=== PATIENT | male | born 1940 | race Caucasian/White ===

== ENCOUNTER 2018-07-06 11:46 | Emergency (ER) | payer MEDICARE, OTHER, SELFPAY ==
[2018-07-06 11:50] VITALS: BP 147/86; PULSE 66; RESP 20; TEMP 36.3; O2SAT 98; BMI 22.9
--- NOTE | 2018-07-06 11:55 | DI.CT.S_ITS ---
PROCEDURE: CT HEAD/BRAIN WO CON INDICATIONS: aphasia- resolved TECHNIQUE: Noncontrast 4.5 mm thick angled axial sections acquired from the foramen magnum to the vertex, with coronal and sagittal reformats. For radiation dose reduction, the following was used: automated exposure control, adjustment of mA and/or kV according to patient size. COMPARISON: [facility], CT, HEAD WITHOUT CONTRAST, 09/13/2014, 11:15. FINDINGS: Image quality: Excellent. CSF spaces: Basal cisterns are patent. No extra-axial fluid collections. The ventricles are symmetric in size and shape. There is mild cerebral volume loss, with resultant ventricular and sulcal prominence. Brain: No intracranial hemorrhage, mass, or mass effect. There are subcortical, periventricular and deep white matter hypodensities consistent with mild chronic small vessel ischemic changes. There is intracranial internal carotid artery atherosclerosis. Skull and face: Calvarium and visualized facial bones appear intact, without suspicious lesions. Sinuses: Visualized sinuses and mastoids are clear. IMPRESSION: 1. No acute intracranial abnormality. 2. Mild chronic white matter small vessel ischemic changes and cerebral volume loss. Dictated by: Truong Martínez M.D. on 07/06/2018 at 12:33 Approved by: Truong Martínez M.D. on 07/06/2018 at 12:35
[2018-07-06 13:22] VITALS: BP 115/70; PULSE 63; RESP 16; O2SAT 93
[2018-07-06 14:00] VITALS: BP 138/73; PULSE 64; RESP 16; O2SAT 100
[2018-07-06 14:30] VITALS: BP 121/72
--- NOTE | 2018-07-07 14:28 | ED.NEUROSD ---
HPI - Neuro Symptoms/Deficit General Chief Complaint: Neuro Symptoms/Deficit Stated Complaint: RECENT TIA,COULD NOT COME UP WITH WORDS Time Seen by Provider: 07/06/18 12:06 Source: patient and family Mode of arrival: ambulatory Limitations: no limitations History of Present Illness HPI Narrative: Patient states that he had word-finding difficulty today, after going to the gym. Patient states he is at the gym a couple of hours ago and was fine, but when he came home and tried to tell his what he did at the gym, he could not come up with the right words. Patient states he knew what he wanted to say, for example, tell her he would use the rowing machine, but he could not find the words and make them come out. He states he did not have any other neurologic deficits. He did at have any weakness, numbness, difficulty swallowing, or visual changes. He states that the symptoms lasted for about 15 min, then resolved spontaneously. Patient's states this has happened once before. Patient was followed up and placed on aspirin, and also cover he had a carotid Doppler and echocardiogram within the last couple of months, both of which looked good. 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 The patient states he is completely back to normal now and has no other complaints. His last episode of this was about 2 months ago. Patient is generally quite healthy, and works out regularly. He states that other than this, he has not felt bad in any way recently. On Anticoagulants: Yes (asa) Related Data Home Medications Medication Instructions Recorded Confirmed CA PANTOTHENATE/FOLIC ACID/VIT #0 06/22/12 02/11/18 (MULTIVITAMIN) CHOLECALCIFEROL (VITAMIN D3) #0 06/22/12 02/11/18 (Vitamin D3) aspirin 81 mg PO 0800 #0 06/22/12 02/11/18 clopidogrel [Plavix] 75 mg PO QDAY #0 06/22/12 02/11/18 metoprolol tartrate 12.5 mg PO Q DAY #0 06/22/12 02/11/18 rosuvastatin [Crestor] 20 mg PO QDAY #0 06/22/12 02/11/18 Allergies Allergy/AdvReac Type Severity Reaction Status Date / Time No Known Drug Allergies Allergy Verified 02/11/18 09:02 Review of Systems Review of Systems All systems reviewed & are unremarkable except as noted in HPI and below Constitutional Denies chills, Denies fever(s), Denies lethargy and Denies weakness Eyes Denies change in vision, Denies eye discharge, Denies irritation and Denies loss of vision ENT Ears, Nose, Mouth, and Throat: Denies change in voice, Denies neck pain and Denies sore throat Cardiovascular Denies chest pain, Denies irregular heart rhythm, Denies lightheadedness, Denies palpitations, Denies dyspnea, Denies dyspnea on exertion and Denies orthopnea Respiratory Denies cough, Denies dyspnea, Denies dyspnea on exertion and Denies wheezing Gastrointestinal Gastrointestinal: Denies abdominal pain, Denies change in bowel habits, Denies diarrhea, Denies nausea and Denies vomiting Genitourinary Denies hematuria, Denies flank pain, Denies urinary incontinence and Denies urinary urgency Musculoskeletal Denies neck pain Integumentary/Breasts Denies pruritus, Denies erythema, Denies rash and Denies wounds Neurologic Denies confusion, Denies loss of vision and Denies weakness Comments: Speech difficulty Psychiatric Denies anxiety, Denies confusion, Denies depression, Denies homicidal ideation and Denies suicidal ideation Endocrine Denies palpitations Hematologic/Lymphatic Denies easy bruising Allergic/Immunologic Denies wheezing PFSH Medical History TIA (transient ischemic attack) (Acute) Surgical History No pertinent past surgical history (Acute) Social History Smoking Status: Never smoker Exam Initial Vital Signs Initial Vital Signs: Vital Signs Temperature 97.4 F L 07/06/18 11:50 Pulse Rate 66 07/06/18 11:50 Respiratory Rate 20 07/06/18 11:50 Blood Pressure 147/86 H 07/06/18 11:50 Pulse Oximetry 98 07/06/18 11:50 Const General: cooperative and well developed Nutritional Appearance: well nourished Orientation: alert, awake, oriented x3 and not confused [facility] Head: normocephalic and atraumatic Ears: external ears normal Nose: external nose normal and No nasal discharge Face and sinus: face symmetric and No dry mucous membranes Mouth: oral mucosae normal and moist mucous membranes Teeth and gingiva: dentition normal Eyes General: appearance normal, both eyes and all related structures Eyelids: eyelids normal Conjunctivae: conjunctivae normal Sclera: sclerae normal Pupils: PERRL EOM: EOM intact bilaterally Neck Neck: normal visual inspection, trachea midline, No lymphadenopathy, No midline deformity and No JVD Lymphatic: No lymphedema Chest Chest: normal inspection of the chest Resp Effort & Inspection: normal respiratory effort, able to speak in complete sentences, no respiratory distress and no use of accessory muscles Auscultation: clear to auscultation bilaterally, no rales, no rhonchi and no wheezes Cardio Rate: regular rate Rhythm: regular rhythm Heart Sounds: no click, no gallops, no murmurs and no rubs Pulses: normal peripheral pulses GI Inspection: non-distended Palpation: soft, no hepatosplenomegaly, No guarding, No pulsatile mass and No tender Auscultation: normal bowel sounds Back/Spine/Pelvis Back: No CVA tenderness Cervical Spine: cervical ROM normal and No pain with cervical ROM Thoracic/Lumbar Spine: thoracic and lumbar spine normal to inspection Skin General: no rashes or lesions noted, No jaundice and No petechiae Neuro General: alert, oriented x3, gait normal and no focal motor deficits Cranial Nerves: CN's II-XI intact bilaterally and PERRL Speech: speech normal Gait: normal gait Motor: muscle tone normal throughout, strength 5/5 throughout and no movement abnormalities noted Sensory Exam: no sensory deficits noted Extrem General: full ROM, no clubbing, cyanosis or edema, no pedal edema and no calf tenderness Psych Appearance: well kempt Mental Status: mental status grossly normal Attitude: cooperative Thought Content: normal and suicidality Judgment: judgment good Course Course Narrative: I discussed with the patient and his that the symptoms do sound like a TIA. Patient has had a head CT today, and this is negative. The patient is on prophylactic aspirin already, and he has already had the echocardiogram and carotid Doppler very recently, that we would order, were he to stay in the hospital. At this point in time, given the lack of residual neuro deficits, and the fact that the workup and prevention is already in place, I do not feel the patient needs to be admitted to the hospital. However, I have discussed with the patient and his that it is probably a good idea to follow up with Neurology just to touch base about these episodes he is having. Patient and his state they would like to follow-up. They are both comfortable with the plan. MDM - Neuro Symptoms/Deficit Medical Records Attestation: I reviewed the patient's medical records. Imaging Data CT scan - head: Attestation: I personally reviewed and interpreted this imaging study as follows: My impression: Negative for acute pathology. Radiologist's impression: PROCEDURE: CT HEAD/BRAIN WO CON INDICATIONS: aphasia- resolved TECHNIQUE: Noncontrast 4.5 mm thick angled axial sections acquired from the foramen magnum to the vertex, with coronal and sagittal reformats. For radiation dose reduction, the following was used: automated exposure control, adjustment of mA and/or kV according to patient size. COMPARISON: [facility], CT, HEAD WITHOUT CONTRAST, 09/13/2014, 11:15. FINDINGS: Image quality: Excellent. CSF spaces: Basal cisterns are patent. No extra-axial fluid collections. The ventricles are symmetric in size and shape. There is mild cerebral volume loss, with resultant ventricular and sulcal prominence. Brain: No intracranial hemorrhage, mass, or mass effect. There are subcortical, periventricular and deep white matter hypodensities consistent with mild chronic small vessel ischemic changes. There is intracranial internal carotid artery atherosclerosis. Skull and face: Calvarium and visualized facial bones appear intact, without suspicious lesions. Sinuses: Visualized sinuses and mastoids are clear. IMPRESSION: 1. No acute intracranial abnormality. 2. Mild chronic white matter small vessel ischemic changes and cerebral volume loss. Dictated by: Truong Martínez M.D. on 07/06/2018 at 12:33 Approved by: Truong Martínez M.D. on 07/06/2018 at 12:35 Discharge Plan Departure Patient Disposition: Home Clinical Impression: Transient cerebral ischemia Discharge Date/Time: 07/06/18 15:21 Interventions: ED Discharge Assessment Last Done: 07/06/18 15:19 Instructions: DI for Transient Ischemic Attack Prescriptions: No Action rosuvastatin [Crestor] 10 MG tablet 20 mg PO QDAY Qty: 0 RF: 0 metoprolol tartrate 25 MG tablet 12.5 mg PO Q DAY Qty: 0 RF: 0 clopidogrel [Plavix] 75 MG tablet 75 mg PO QDAY Qty: 0 RF: 0 aspirin 81 MG tablet,chewable 81 mg PO 0800 Qty: 0 RF: 0 CA PANTOTHENATE/FOLIC ACID/VIT (MULTIVITAMIN) Qty: 0 RF: 0 CHOLECALCIFEROL (VITAMIN D3) (Vitamin D3) Qty: 0 RF: 0 Referrals: [facility] [Provider Group] Sundar Wilde MD [Primary Care Provider] - Octavio Leone MD [Non-Staff] -
== END 2018-07-06 15:21 | disposition home or self-care (01) ==
PROVIDERS: Emergency Provider Emergency Medicine; PCP Family Medicine
DX: G45.9 Transient cerebral ischemic attack, unspecified (principal); R47.81 Slurred speech; R20.0 Anesthesia of skin; R13.10 Dysphagia, unspecified; Z79.01 Long term (current) use of anticoagulants
CPT/HCPCS: 70450; 99283; 99291

== ENCOUNTER 2020-05-10 17:34 | Observation (INO) | payer MEDICARE, OTHER, SELFPAY ==
[2020-05-10] VITALS (12 sets, daily range): BP systolic 121–180; BP diastolic 67–83; PULSE 59–68; RESP 16–23; TEMP 36.7–36.8; O2SAT 94–100; BMI 22.9; BMI 22.5
--- NOTE | 2020-05-10 17:49 | PC.NURSE ---
Neurologist Dr Gunner Corey in [place]
--- NOTE | 2020-05-10 17:50 | DI.CT.S_ITS ---
PROCEDURE: CT HEAD/BRAIN WO CON INDICATIONS: TIA TECHNIQUE: Noncontrast 4.5 mm thick angled axial sections acquired from the foramen magnum to the vertex, with coronal and sagittal reformats. For radiation dose reduction, the following was used: automated exposure control, adjustment of mA and/or kV according to patient size. COMPARISON: [facility], CT, CT HEAD/BRAIN WO CON, 07/06/2018, 11:51. FINDINGS: Image quality: Excellent. CSF spaces: Basal cisterns are patent. No extra-axial fluid collections. The ventricles are symmetric in size and shape. Brain: No intracranial bleeds or masses. There is cerebral volume loss for age, with resultant ventricular and sulcal prominence. There are periventricular and deep white matter chronic small vessel ischemic changes. There is intracranial internal carotid artery atherosclerosis. Skull and face: Calvarium and visualized facial bones appear intact, without suspicious lesions. Sinuses: Visualized sinuses and mastoids are clear. IMPRESSION: 1. No acute intracranial process. 2. Mild atrophy and chronic microvascular ischemic changes. Dictated by: Christine Molina M.D. on 05/10/2020 at 18:09 Approved by: Christine Molina M.D. on 05/10/2020 at 18:10
[2020-05-10 18:11] LABS: Add Manual Diff / Slide Review NO; Basophils Absolute Auto 0 /uL (0-100); Basophils Percent Auto 0.5 % (0-2); Eosinophils Absolute Auto 100 /uL (0-450); Eosinophils Percent Auto 2.1 % (2-4); Hemoglobin 14.1 g/dL (13.5-17.5); Lymphocytes Absolute Auto 1500 /uL (1100-4500); Lymphocytes Percent Auto 45.3 % (25-40); Mean Corpuscular HGB Conc 34.4 % (30-36); Mean Corpuscular Hemoglobin 33.9 PG (26-34); Mean Corpuscular Volume 98.4 fL (80-100); Monocytes Absolute Auto 300 /uL (0-900); Neutrophils Absolute Auto 1400 /uL (1500-7000); Neutrophils Percent Auto 44.1 % (50-75); Platelet Count 181 X10^3/uL (150-400); Red Blood Cell Count 4.16 X10^6/uL (4.5-5.9); Red Cell Distribution Width 13.2 % (11.6-14.8); White Blood Cell Count 3.2 X10^3/uL (4.5-11.0)
[2020-05-10 18:13] LABS: INR 0.9 (0.9-1.3); Prothrombin Time 10.7 SECONDS (10.1-12.7)
[2020-05-10 18:16] LABS: PTT Partial Thromboplastin Tim 29 SECONDS (26.4-36.2)
[2020-05-10 18:19] LABS: Creatine Kinase 172 U/L (55-170); Ethanol (ETOH) < 10 mg/dL
[2020-05-10 18:20] LABS: BUN Creatinine Ratio 22.3 (6-22); Blood Urea Nitrogen 23 mg/dL (9-20); Calcium 9.7 mg/dL (8.4-10.2); Carbon Dioxide 29 mmol/L (22-32); Chloride 104 mmol/L (98-107); Estimated Glomerular Filt Rate > 60.0 mL/min (>60); Glucose 97 mg/dL (80-110); HEMOLYSIS < 15 (0-50); Potassium 4.3 mmol/L (3.4-5.1); Sodium 139 mmol/L (137-145)
[2020-05-10 18:31] LABS: Troponin I < 0.012 ng/mL (0.01-0.034)
[2020-05-10 18:34] LABS: CKMB % Relative Index 1.5 % (1.5-5.0); Creatine Kinase MB 2.52 ng/mL (<2.37)
--- NOTE | 2020-05-10 19:54 | ED_ITS ---
HPI - Neuro Symptoms/Deficit General Chief Complaint: Neuro Symptoms/Deficit Stated Complaint: THINKS HAVING A TIA Time Seen by Provider: 05/10/20 17:51 History of Present Illness HPI Narrative: 79-year-old gentleman with a history of CABG , prior TIAs and hyperlipidemia presents with word-finding difficulties and mild word slurring 1st appreciated at 5:10 this evening and completely resolved by time of exam in the emergency department. He has seen both Cardiology and Neurology with full workup with prior TIAs including echocardiogram and MRIs. After underwriting consultant with Neurology his aspirin was discontinued and he was started on Plavix. He is compliant with all of his medications at this time. On Anticoagulants: Yes Related Data Home Medications Medication Instructions Recorded Confirmed CA PANTOTHENATE/FOLIC ACID/VIT #0 06/22/12 02/11/18 (MULTIVITAMIN) CHOLECALCIFEROL (VITAMIN D3) #0 06/22/12 02/11/18 (Vitamin D3) clopidogrel [Plavix] 75 mg PO QDAY #0 06/22/12 05/10/20 metoprolol tartrate 12.5 mg PO Q DAY #0 06/22/12 02/11/18 rosuvastatin [Crestor] 20 mg PO QDAY #0 06/22/12 05/10/20 atenolol 12.5 mg PO 05/10/20 atenolol 12.5 mg PO DAILY 05/10/20 05/10/20 losartan 12.5 mg PO DAILY 05/10/20 05/10/20 Allergies Allergy/AdvReac Type Severity Reaction Status Date / Time No Known Drug Allergies Allergy Verified 02/11/18 09:02 Review of Systems Review of Systems Narrative: Pertinent positive and negative findings as per HPI Remainder of review of systems is otherwise unremarkable for Constitutional: Fevers, chills, weakness ENT: No sore throat, neck pain, ear pain CV: Chest pain, palpitations, dyspnea on exertion Respiratory: Cough, wheeze, dyspnea GI: Nausea, vomiting, diarrhea, change in bowel habits, black or bloody stools : Dysuria, hematuria, flank pain MS: Muscle weakness, numbness, joint swelling or warmth Skin: Rashes, nonhealing lesions Neuro: Syncope, dizziness, tingling Patient History Medical History (Updated 05/10/20 @ 20:00 by Freya Robins MD) Hyperlipidemia (Acute) Hypertension (Acute) TIA (transient ischemic attack) (Acute) Surgical History (Updated 05/10/20 @ 20:00 by Freya Robins MD) Hx of CABG (Acute) No pertinent past surgical history (Acute) Social History Smoking Status: Never smoker Smoking Status: Never smoker alcohol intake frequency: a few times a week Substance Use Type: does not use Exam Narrative Exam Narrative: General: Healthy appearing, in no acute distress. Able to give a complete and coherent history. Well-nourished well-developed HEENT: Moist mucous membranes, normal sclera with reactive pupils, Neck: No JVD, supple Respiratory: Lungs are clear to auscultation, no wheezing no rales no rhonchi. Full and symmetrical air movement Cardiac: Regular rate and rhythm no murmurs no bruits Abdomen: Soft nontender good bowel tones, no flank pain Skin: Warm and dry, no rashes Neurologic: Grossly neurologically intact with no obvious asymmetries or abnormalities. NIH = 0 Extremities: No trauma, well perfused Psych: Cooperative, appropriate insight and affect Initial Vital Signs Initial Vital Signs: Vital Signs Temperature 98.1 F 05/10/20 17:37 Pulse Rate 64 05/10/20 17:37 Respiratory Rate 16 05/10/20 17:37 Blood Pressure 180/83 H 05/10/20 17:37 Pulse Oximetry 98 05/10/20 17:37 Scores NIH Stroke Scale Level of Conciousness: Alert, keenly responsive Ask month/age: Answers both questions correctly. Open/close eyes, close hand: Performs both tasks correctly Best gaze horizontal: Normal Visual slade: No visual loss Facial palsy: Normal symetrical movement Left arm drift: No drift for full 10 sec Right arm drift: No drift for full 10 sec Left leg drift: No drift for full 5 sec Right leg drift: No drift for full 5 sec Limb ataxia: Absent Sensory on face/arms/legs: Normal, no sensory loss Best language: No aphasia, normal Dysarthria: Normal Extinction or inattention: No abnormality Total NIH Stroke scale score: 0 Course Orders Ordered: ED Orders 05/10/20 17:50 CT head/brain wo con Stat EKG-12 Lead Stat 05/10/20 17:53 Basic Metabolic Panel Stat Complete Blood Count AUTO DIFF Stat Ethanol (ETOH) Stat Partial Thromboplastin Time Stat Prothrombin Time INR Stat Troponin & CK Cardiac Panel Stat 05/10/20 21:00 COVID19 Stat 05/10/20 21:14 MR head/brain wo/w con Routine Discontinued Medications Aspirin (Aspirin Chew) 324 mg PO NOW ONE Stop: 05/10/20 20:30 Last Admin: 05/10/20 20:50 Dose: Not Given Documented by: VARINDER Aspirin (Aspirin Ec) 81 mg PO NOW ONE Stop: 05/10/20 21:01 Last Admin: 05/10/20 21:13 Dose: 81 mg Documented by: VARINDER Clopidogrel Bisulfate (Plavix) 75 mg PO NOW ONE Stop: 05/10/20 21:01 Last Admin: 05/10/20 21:13 Dose: 75 mg Documented by: VARINDER Nicardipine HCl 25 mg/ Sodium (Chloride) 250 mls @ 50 mls/hr IV TITRATE KAITLYNN; Protocol Last Admin: 05/10/20 20:51 Dose: Not Given Documented by: VARINDER Nitroglycerin (Nitroglycerin) 50 mg in 250 mls @ 1.5 mls/hr IV TITRATE KAITLYNN; Protocol Last Admin: 05/10/20 20:53 Dose: Not Given Documented by: LYNN Vital Signs Vital signs: Vital Signs - 8 hr 05/10/20 17:37 05/10/20 18:06 05/10/20 18:08 Temperature 98.1 F Pulse Rate 64 60 59 L Respiratory Rate 16 19 Blood Pressure 180/83 H 180/82 H Pulse Oximetry 98 98 100 05/10/20 18:30 05/10/20 19:00 05/10/20 19:30 Temperature Pulse Rate 64 63 62 Respiratory Rate 23 21 18 Blood Pressure 138/67 134/73 124/69 Pulse Oximetry 97 98 96 05/10/20 20:00 05/10/20 20:12 05/10/20 20:30 Temperature Pulse Rate 61 68 64 Respiratory Rate 20 18 17 Blood Pressure 139/81 139/81 134/74 Pulse Oximetry 94 98 96 MDM - Neuro Symptoms/Deficit Medical Records Attestation: I reviewed the patient's medical records. Lab Data Attestation: I reviewed the patient's lab results. Result diagrams: 05/10/20 17:53 05/10/20 17:53 Labs: Lab Results 05/10/20 05/10/20 05/10/20 Range/Units 17:53 17:53 17:53 WBC 3.2 L (4.5-11.0) X10^3/uL RBC 4.16 L (4.5-5.9) X10^6/uL Hgb 14.1 (13.5-17.5) g/dL Hct 41.0 (41-53) % MCV 98.4 (80-100) fL MCH 33.9 (26-34) PG MCHC 34.4 (30-36) % RDW 13.2 (11.6-14.8) % Plt Count 181 (150-400) X10^3/uL Neut % (Auto) 44.1 L (50-75) % Lymph % (Auto) 45.3 H (25-40) % Hardee % (Auto) 8.0 (3-14) % Eos % (Auto) 2.1 (2-4) % Baso % (Auto) 0.5 (0-2) % Neut # (Auto) 1400 L (7779-4043) /uL Lymph # (Auto) 1500 (7466-6717) /uL Hardee # (Auto) 300 (0-900) /uL Eos # (Auto) 100 (0-450) /uL Baso # (Auto) 0 (0-100) /uL PT 10.7 (10.1-12.7) SECONDS INR 0.9 (0.9-1.3) APTT 29 (26.4-36.2) SECONDS Sodium 139 (137-145) mmol/L Potassium 4.3 (3.4-5.1) mmol/L Chloride 104 (98-107) mmol/L Carbon Dioxide 29 (22-32) mmol/L BUN 23 H (9-20) mg/dL Creatinine 1.03 (0.66-1.25) mg/dL Estimated GFR > 60.0 (>60) mL/min BUN/Creatinine Ratio 22.3 H (6-22) Glucose 97 (80-110) mg/dL Calcium 9.7 (8.4-10.2) mg/dL Total Creatine Kinase (55-170) U/L CK-MB (CK-2) (<2.37) ng/mL CK-MB (CK-2) Rel Index (1.5-5.0) % Troponin I (0.01-0.034) ng/mL Ethyl Alcohol ( - 10) mg/dL 05/10/20 Range/Units 17:53 WBC (4.5-11.0) X10^3/uL RBC (4.5-5.9) X10^6/uL Hgb (13.5-17.5) g/dL Hct (41-53) % MCV (80-100) fL MCH (26-34) PG MCHC (30-36) % RDW (11.6-14.8) % Plt Count (150-400) X10^3/uL Neut % (Auto) (50-75) % Lymph % (Auto) (25-40) % Hardee % (Auto) (3-14) % Eos % (Auto) (2-4) % Baso % (Auto) (0-2) % Neut # (Auto) (8387-0392) /uL Lymph # (Auto) (4223-2903) /uL Hardee # (Auto) (0-900) /uL Eos # (Auto) (0-450) /uL Baso # (Auto) (0-100) /uL PT (10.1-12.7) SECONDS INR (0.9-1.3) APTT (26.4-36.2) SECONDS Sodium (137-145) mmol/L Potassium (3.4-5.1) mmol/L Chloride (98-107) mmol/L Carbon Dioxide (22-32) mmol/L BUN (9-20) mg/dL Creatinine (0.66-1.25) mg/dL Estimated GFR (>60) mL/min BUN/Creatinine Ratio (6-22) Glucose (80-110) mg/dL Calcium (8.4-10.2) mg/dL Total Creatine Kinase 172 H (55-170) U/L CK-MB (CK-2) 2.52 H (<2.37) ng/mL CK-MB (CK-2) Rel Index 1.5 (1.5-5.0) % Troponin I < 0.012 (0.01-0.034) ng/mL Ethyl Alcohol < 10 ( - 10) mg/dL Imaging Data Head CT: Radiologist's Impression: FINDINGS: Image quality: Excellent. CSF spaces: Basal cisterns are patent. No extra-axial fluid collections. The ventricles are symmetric in size and shape. Brain: No intracranial bleeds or masses. There is cerebral volume loss for age, with resultant ventricular and sulcal prominence. There are periventricular and deep white matter chronic small vessel ischemic changes. There is intracranial internal carotid artery atherosclerosis. Skull and face: Calvarium and visualized facial bones appear intact, without suspicious lesions. Sinuses: Visualized sinuses and mastoids are clear. IMPRESSION: 1. No acute intracranial process. 2. Mild atrophy and chronic microvascular ischemic changes. Dictated by: Christine Molina M.D. on 05/10/2020 at 18:09 ECG Data Attestation: I personally reviewed and interpreted this ECG as follows: Interpretation: Sinus rhythm at a rate of 57 Incomplete Right bundle branch block, normal axis nonspecific ST T wave changes No acute ischemia MDM Narrative Medical decision making narrative: 79-year-old gentleman with apparent TIA recurrent this evening. Has had complete workup with in the year is currently appropriately treated for blood pressure, hyperlipidemia and on Plavix. 8:15pm reviewed with Dr. Avila, tele stroke neurologist. He recommended dual antiplatelet therapy for at least 21 days as well as repeating echo and MRI studies. His of his high risk for a completed stroke within the next 24 hours recommended hospital admission for expedited workup. Care is reviewed with Dr. Finch and patient will be admitted for observation this evening. He is safe for transfer to floor, bridging order are entered. Discharge Plan Departure Prescriptions: No Action rosuvastatin [Crestor] 10 MG tablet 20 mg PO QDAY Qty: 0 RF: 0 metoprolol tartrate 25 MG tablet 12.5 mg PO Q DAY Qty: 0 RF: 0 clopidogrel [Plavix] 75 MG tablet 75 mg PO QDAY Qty: 0 RF: 0 CA PANTOTHENATE/FOLIC ACID/VIT (MULTIVITAMIN) Qty: 0 RF: 0 CHOLECALCIFEROL (VITAMIN D3) (Vitamin D3) Qty: 0 RF: 0 atenolol 25 mg tablet 12.5 mg PO RF: 0 atenolol 25 mg tablet 12.5 mg PO DAILY RF: 0 losartan 25 mg Tablet 12.5 mg PO DAILY RF: 0
[2020-05-10] MEDS: ASPIRIN EC 81 MG TABLET PO (21:13)
[2020-05-10] MEDS: CLOPIDOGREL 75 MG TABLET PO (21:13)
--- NOTE | 2020-05-10 21:14 | DI.MRI.S_ITS ---
PROCEDURE: MR HEAD/BRAIN WO/W CON INDICATIONS: TIA TECHNIQUE: Noncontrast axial T1 spin echo, axial T2 fast spin echo, sagittal and axial FLAIR, coronal T2 fast spin echo, axial gradient echo, axial diffusion and ADC through the brain. After the administration of contrast, axial and coronal 3D VIBE or T1 spin echo with fat saturation through the brain. COMPARISON: [facility], CT, CT HEAD/BRAIN WO CON, 05/10/2020, 17:59. [facility], CT, CT HEAD/BRAIN WO CON, 07/06/2018, 11:51. FINDINGS: Image quality: Excellent. CSF Spaces: Basal cisterns are patent. No extra-axial fluid collections. Ventricles are normal in size and shape. Brain: No midline shift. No intracranial bleeds or masses. There is mild, diffuse cerebral volume loss. There are mild periventricular and subcortical white matter chronic microvascular ischemic changes. No abnormal intracranial enhancement. The brainstem appears normal. Diffusion-weighted images demonstrate no acute ischemic insults. Small chronic lacunar infarct involving the left frontal subcortical white matter. Normal intravascular flow voids are present. Dural sinuses demonstrate normal postcontrast enhancement. Skull and face: Calvarial marrow is normal in signal. Orbits appear normal. Sinuses: Sinuses and mastoids appear clear. IMPRESSION: 1. No acute intracranial disease process. 2. No areas of acute infarction. 3. No abnormal intracranial mass or suspicious postcontrast enhancement. 4. Mild, diffuse cerebral volume loss. 5. Mild periventricular and subcortical white matter chronic microvascular ischemic change. Dictated by: Harriet Zee MD, PhD on 05/11/2020 at 8:30 Approved by: Harriet Zee MD, PhD on 05/11/2020 at 8:38
[2020-05-10 21:30] LABS: COVID19 -Nasal RAPID Negative (Negative)
--- NOTE | 2020-05-10 23:21 | PC.NURSE ---
A&OX4. 97%RA. denies any chest pain, sob or nausea. NIH:0. tele. oriented pt to the room. call light in reach. bed alarm active.
[2020-05-11] VITALS: BP 116/54; PULSE 62; RESP 16; TEMP 36.7; O2SAT 95
[2020-05-11 05:07] VITALS: BP 135/78; PULSE 79; RESP 18; TEMP 36.6; O2SAT 98
[2020-05-11 07:26] VITALS: BP 134/78; PULSE 65; RESP 16; TEMP 36.6; O2SAT 98
--- NOTE | 2020-05-11 07:32 | PM.HP.1 ---
History of Present Illness History of Present Illness Date Patient Seen: 05/11/20 Time Patient Seen: 07:32 Chief complaint: THINKS HAVING A TIA Narrative: 79-year-old male with a history of CABG, prior TIAs and hyperlipidemia presents with word-finding difficulties and mild word slurring, first appreciated at 5:10 pm yesterday evening and completely resolved by time of exam in the emergency department. He is followed by outpatient Cardiology and Neurology and has had a full workup secondary to his history of prior TIAs, including echocardiogram and MRIs. He was recently discontinued from aspirin, per Neurology, but he does continue on Plavix. He is otherwise compliant with his medications. Vital signs upon arrival in the ED included temperature of 98.1?, pulse 64, respirations 16, blood pressure 180/83, O2 saturation 98% on room air. Workup significant for a negative CT head, slightly low WBC at 3.2, and slightly elevated BUN at 23. Tele-neurologist, Dr. Avila, was consulted and he recommended dual anti-platelet therapy for 21 days and admission for completion of his stroke workup including echo and MRI. Patient has had an uneventful night and feels back to his baseline. Patient History Medical History (Updated 05/11/20 @ 02:44 by Freya Robins MD) Hyperlipidemia (Acute) Hypertension (Acute) TIA (transient ischemic attack) (Acute) Surgical History (Updated 05/10/20 @ 20:00 by Freya Robins MD) Hx of CABG (Acute) No pertinent past surgical history (Acute) Family & Social History Social History: household members spouse Prior Living Arrangements House Safety & Behavioral: Feels Safe in Current Yes Environment Been Physically Hurt or No Threatened By a Person Suicidal Ideation Description None Suicide Plan Description No Plan Tobacco & Substance use: Smoking Status Never smoker alcohol intake frequency a few times a week Substance Use Type does not use Meds Home Medications and Allergies Home Medications Medication Instructions Recorded Confirmed Type CA PANTOTHENATE/FOLIC ACID/VIT #0 06/22/12 02/11/18 History (MULTIVITAMIN) CHOLECALCIFEROL (VITAMIN D3) PO #0 06/22/12 02/11/18 History (Vitamin D3) clopidogrel [Plavix] 75 mg PO QDAY #0 06/22/12 05/10/20 History atenolol 12.5 mg PO DAILY 05/10/20 05/10/20 History losartan 12.5 mg PO DAILY 05/10/20 05/10/20 History aspirin 160 mg PO DAILY 21 Days #21 tab 05/11/20 Rx rosuvastatin 40 mg PO DAILY #90 tab 05/11/20 Rx Allergies Allergy/AdvReac Type Severity Reaction Status Date / Time No Known Drug Allergies Allergy Verified 02/11/18 09:02 Review of Systems Review of Systems ROS: Yes All systems reviewed with the patient and are negative except as otherwise documented Exam Vital Signs (past 8 hours): - 05/11/20 00:00 05/11/20 05:07 Temperature 98.0 F 97.9 F Pulse Rate 62 79 Respiratory Rate 16 18 Blood Pressure 116/54 L 135/78 Pulse Oximetry 95 98 Oxygen Delivery Method Room Air Oxygen Flow Rate 0 Narrative Exam Narrative: GENERAL: Alert and oriented, appearing stated age and in no acute distress. HEENT: Head normocephalic/atraumatic. Pupils equal, round, and reactive to light and accomodation. Extraocular muscles intact. Tympanic membranes clear. Nasal mucosa moist, septum midline. Oral mucosa moist, no lesions. Neck soft and supple, no lymphadenopathy. LUNGS: Clear to ausculation bilaterally, no wheezes, rhonchi or rales. CV: Normal S1 and S2 with regular rate and rhythm, no audible murmurs, rubs or gallops. ABDOMEN: Soft, non-tender, non-distended, no organomegaly. Positive bowel sounds. EXTREMITIES: No clubbing, cyanosis, or edema. NEURO: Cranial nerves II through XII grossly intact, no focal deficits. PSYCH: Alert and oriented x 3. SKIN: No concerning lesions. Objective Labs Result Diagrams: 05/10/20 17:53 05/10/20 17:53 Labs: Laboratory Results - last 24 hr 05/10/20 05/10/20 05/10/20 17:53 17:53 17:53 WBC 3.2 L RBC 4.16 L Hgb 14.1 Hct 41.0 MCV 98.4 MCH 33.9 MCHC 34.4 RDW 13.2 Plt Count 181 Neut % (Auto) 44.1 L Lymph % (Auto) 45.3 H [place] % (Auto) 8.0 Eos % (Auto) 2.1 Baso % (Auto) 0.5 Neut # (Auto) 1400 L Lymph # (Auto) 1500 [place] # (Auto) 300 Eos # (Auto) 100 Baso # (Auto) 0 PT 10.7 INR 0.9 APTT 29 Sodium 139 Potassium 4.3 Chloride 104 Carbon Dioxide 29 BUN 23 H Creatinine 1.03 Estimated GFR > 60.0 BUN/Creatinine Ratio 22.3 H Glucose 97 Calcium 9.7 Total Creatine Kinase CK-MB (CK-2) CK-MB (CK-2) Rel Index Troponin I Ethyl Alcohol COVID-19 PCR 05/10/20 05/10/20 17:53 21:00 WBC RBC Hgb Hct MCV MCH MCHC RDW Plt Count Neut % (Auto) Lymph % (Auto) [place] % (Auto) Eos % (Auto) Baso % (Auto) Neut # (Auto) Lymph # (Auto) [place] # (Auto) Eos # (Auto) Baso # (Auto) PT INR APTT Sodium Potassium Chloride Carbon Dioxide BUN Creatinine Estimated GFR BUN/Creatinine Ratio Glucose Calcium Total Creatine Kinase 172 H CK-MB (CK-2) 2.52 H CK-MB (CK-2) Rel Index 1.5 Troponin I < 0.012 Ethyl Alcohol < 10 COVID-19 PCR Negative Assessment & Plan Assessment & Plan narrative: 1. TIA Plan: Stroke protocol workup today. Will continue Plavix and start aspirin. 2. Hyperlipidemia with history of atherosclerotic disease Plan: Will increase rosuvastatin from 20 to 40 mg p.o. q.h.s.. 3. Hypertension Plan: Will continue home medications. DVT prophylaxis: On plavix. Code: Full COVID: Negative
--- NOTE | 2020-05-11 09:07 | DI.ECHO.S_ITS ---
[facility] +---------+ [facility] +---------+ : : [address] : : : : [id number] : : : : Phone: [phone]+ Echocardiogram Report + + :Name: PETEY BORDEN Study Date: 05/11/2020 Height: 70 in : :[facility] Weight: 157 lb : : Gender: Male BSA: 1.9 m2 : :: 1940 Age: 79 yrs BP: 134/78 mmHg: :Reason For Study: TIA : :Ordering Physician: PREETHI, : :HILTON Performed By: Sabra Winters : :Referring: HILTON ORO : + + Interpretation Summary The left ventricle is normal in size and wall thickness. The ejection fraction is estimated to be 55-60%. There is a mild dyssynchronous contraction pattern, consistent with a conduction abnormality. Diastolic parameters suggest a relaxation abnormality of the left ventricle, consistent with probable normal filling pressures. The right ventricle is normal size. Right ventricular systolic function is at the lower limits of normal. Pulmonary artery pressures cannot be estimated because of the lack of a measurable TR jet velocity but the IVC suggests a CVP of around 3 mmHg. Both atria are normal in size. The aortic valve is moderately calcified. There is mild to moderate aortic stenosis. There is no other significant valvular heart disease. The aortic root is normal size. Procedure: A two-dimensional transthoracic echocardiogram with color flow and Doppler was performed. The study quality was technically adequate. There is no prior echocardiogram noted for this patient. The heart rate ranged between 61-66 bpm during the study. Left Ventricle: The left ventricle is normal in size and wall thickness. The ejection fraction is estimated to be 55-60%. There is a mild dyssynchronous contraction pattern, consistent with a conduction abnormality. Diastolic parameters suggest a relaxation abnormality of the left ventricle, consistent with probable normal filling pressures. Right Ventricle: The right ventricle is normal size. Right ventricular systolic function is at the lower limits of normal. Atria: Both atria are normal in size. There is no Doppler evidence for an interatrial shunt. Mitral Valve: The mitral valve is normal in structure and function. There is trace mitral regurgitation. Aortic Valve: The aortic valve is moderately calcified. There is mild to moderate aortic stenosis. There is trace aortic regurgitation. Tricuspid Valve: The tricuspid valve is normal in structure and function. Pulmonary artery pressures cannot be estimated because of the lack of a measurable TR jet velocity but the IVC suggests a CVP of around 3 mmHg. There is trace tricuspid regurgitation. Pulmonic Valve: The pulmonic valve is not well visualized. There is no pulmonic valvular regurgitation. There is no other significant valvular heart disease. Great Vessels: The aortic root is normal size. The dimensions of the ascending aorta are normal. The IVC is of normal diameter and collapses greater than 50% with a sniff. This suggests a low right atrial pressure of 3 mm Hg. Pericardium/ Pleura There is no pericardial effusion. There is no pleural effusion. MMode/2D Measurements & Calculations LVIDd: 4.1 cm LVOT diam: 2.0 cm LVIDs: 2.9 cm Ao root diam: 3.1 cm FS: 29.8 % asc Aorta Diam: 2.9 cm EPSS: 1.1 cm Ao Arch Diam (Prox Trans): 2.1 cm IVSd: 0.82 cm LVPWd: 0.90 cm LV bueno. diameter/BSA (cm/m^2): 2.2 LV sys. diameter/BSA (cm/m^2): 1.5 LA A2 area: 14.9 cm2 RA long axis: 4.5 cm LA A4 area: 12.9 cm2 RA area: 13.6 cm2 LA length (vol): 4.6 cm RA vol: 35.6 ml LA vol: 35.6 ml RA : 18.9 ml/m2 LA vol index: 18.9 ml/m2 IVC diam: 0.54 cm RVD1 (basal): 2.7 cm TAPSE: 1.7 cm Doppler Measurements & Calculations Ao V2 max: 196.6 cm/sec LVOT Max Dustin: 87.4 cm/sec Ao V2 mean: 132.7 cm/sec LV V1 max P.1 mmHg Ao max P.5 mmHg LV V1 VTI: 18.3 cm Ao mean P.0 mmHg JOVANNY(I,D): 1.4 cm2 Ao V2 VTI: 42.4 cm JOVANNY(V,D): 1.4 cm2 sev ratio: 0.43 JOVANNY indexed to BSA (cm^2/m^2): 0.73 MV E max dustin: 66.6 cm/sec PA V2 max: 54.0 cm/sec MV A max dustin: 103.3 cm/sec PA V2 mean: 35.3 cm/sec MV E/A: 0.64 PA mean P.57 mmHg Med Peak E' Dustin: 5.8 cm/sec PA pr(Accel): 25.9 mmHg E/E' med: 11.4 Lat Peak E' Dustin: 7.7 cm/sec E/E' lat: 8.7 E/e' average: 10.0 MV dec time: 0.36 sec SV(LVOT): 58.3 ml Reading Physician:01:37 PM
[2020-05-11] MEDS: ASPIRIN EC 81 MG TABLET PO (10:36)
[2020-05-11] MEDS: atenoloL 25 MG TABLET 12.5 MG PO (10:36)
[2020-05-11 10:38] VITALS: BP 134/78; PULSE 78
[2020-05-11] MEDS: CLOPIDOGREL 75 MG TABLET PO (10:38)
[2020-05-11] MEDS: LOSARTAN 25 MG TABLET 12.5 MG PO (10:38)
[2020-05-11] MEDS: ROSUVASTATIN 10 MG TABLET 40 MG PO ×2 (10:39→10:41)
--- NOTE | 2020-05-11 11:12 | PC.NURSE ---
Patient is alert and orientated. No SS of stroke, NIH 0. Patient VSS, lung sounds clear, bowel tones active. Tele has been NS 1st degree AV. Patient is resting comfortably w/ his by his side. SCD's applied, bed low and locked, call light within reach.
[2020-05-11 11:23] VITALS: BP 125/78; PULSE 69; RESP 15; TEMP 36.6; O2SAT 97
--- NOTE | 2020-05-11 11:25 | ST.IPSCREEN ---
Order received for assessment following admission for s/sx TIA. Met with the pt bin room with his in attendance. Pt reported eating breakfast without difficulty . His speech was clear. he was oriented x4. no s/s/x aphasia observed. Pt and stated they feel pt has returned to baseline. Dr. Ledesma informed. Order canceled.
--- NOTE | 2020-05-11 14:18 | CM.DANOTE ---
DCP/Assessment: Reviewed chart. Patient is a 79yr old male admitted to [facility] with TIA like symptoms. PCP is Dr. Ledemsa/Josette/ Primary payor is 1)Medicare 2)[facility]. Spoke with RN this AM. Patient has MRI pending today. If negative it is anticipated that patient will d/c home. RN reports no anticipated d/c planning needs or deficits. P: Home when stable. WYATT Sanders Discharge Planning/Care Management CM Discharge Assessment Start: 05/11/20 14:12 Freq: Status: Active Protocol: Document 05/11/20 14:12 KJS (Rec: 05/11/20 14:18 KJS [id number]) Discharge Planning Assessment Assigned Production Support Manager WYATT Sanders Contact Information Maddison Moran (spouse) Advance Directives? Yes History Provided By Medical Record Prior Living Arrangements House Household Members spouse Independent with ADL's Yes Is patient alert and oriented? Yes: Per RN and provider patient alert and oriented. Caregiver for Another No Barriers to Discharge No Discharge Plan Home Transportation Arrangement Family to provide transport. Review Status In Process Next Review Type Continued Stay Review
--- NOTE | 2020-05-11 14:52 | PT.IIE ---
Surgical History (Last Updated 05/10/20 @ 20:00 by Freya Robins MD) Hx of CABG (Acute) No pertinent past surgical history (Acute) Medical History (Last Updated 05/10/20 @ 20:00 by Freya Robins MD) Hyperlipidemia (Acute) Hypertension (Acute) TIA (transient ischemic attack) (Acute) Physical Therapy Inpatient Evaluation/Re-Eval M1 PT/OT-IP Prior Functional Status Start: 05/11/20 15:55 Freq: NEEDED Status: Active Protocol: Document 05/11/20 14:52 AB (Rec: 05/11/20 16:02 AB [email or web address]) Medical Review Prior Functional Status Medical History Reviewed Yes Communication able to make needs known; pt is ZUNI Mobility and Gait pt stated that he is independent with all mobilities and ambulation without AD but uses a walking stick when he has to walk out in the rizvi/uneven surfaces Social History Household Members spouse Living Arrangements House Number of Floors (Floors) One Floor Number of Stairs To Enter/Railing? no steps to enter Home Environment High Toilet,Walk in Shower Home Equipment Hand Held Shower,Grab Bars In Shower M2 PT-IP Current Condition Start: 05/11/20 15:55 Freq: NEEDED Status: Active Protocol: Document 05/11/20 14:52 AB (Rec: 05/11/20 16:02 AB [email or web address]) Physical Therapy Current Condition Current Condition Evaluation Date 05/11/20 Treatment Diagnosis TIA; difficulty in walking Onset Date 05/10/20 M3 PT-IP Subjective Start: 05/11/20 15:55 Freq: NEEDED Status: Active Protocol: Document 05/11/20 14:52 AB (Rec: 05/11/20 16:02 AB [email or web address]) Subjective Physical Therapy Visit Type Type Initial Evaluation Visit Start Time 14:52 Visit Stop Time 15:08 Total Visit Minutes 16 Number of WAITER/WAITRESS SECOND CLASS Visits 0 Physical Therapy Visit Comments Patient Comments pt is agreeable to do PT Therapy Pain Assessment Pain Present Pain Present Denied Pain M4 PT-IP Mobility and Gait Start: 05/11/20 15:55 Freq: NEEDED Status: Active Protocol: Document 05/11/20 14:52 AB (Rec: 05/11/20 16:02 AB [email or web address]) PT-Bed Mobility Assessment Supine to Sit Supine to Sit Independent Sit to Supine Sit to Supine Independent Scooting Scooting to Edge of Bed Independent PT-Transfer Assessment Sit to and From Stand Sit to and from Stand Independent Equipment Transfer Assistive Device None Transfer Ability Level of Assist Independent Gait Assessment Gait Gait Assistance Required: Independent Distance (Feet) 75 Able to Maintain Weight Bearing Status Yes During Gait Assistive Devices Assistive Device None,Gait Belt Orthotic/Prosthetic Devices or Brace: No Stair Climbing Assessment Evaluation Level of Assist On Stairs Independent Devices Stair Climbing Assistive Devices Right Railing Technique/Endurance Stair Climbing Direction Ascend and Descend Stair Climbing Technique Step Over Step Number of Steps Climbed 3 Query Text: Stair Climbing Set # Repetitions (reps) 1 PT-Balance Assessment Sitting Balance and Reactions Static Sitting Balance Ability Normal Dynamic Sitting Balance Ability Normal Standing Balance and Reactions Static Standing Balance Ability Normal Dynamic Standing Balance Ability Good Device Used without AD Functional Assessments Functional Tests Tinetti Balance and Gait Assessment : low fall risk M5 PT-IP Objective Assessments Start: 05/11/20 15:55 Freq: NEEDED Status: Active Protocol: Document 05/11/20 14:52 AB (Rec: 05/11/20 16:02 [email or web address] Orientation Orientation/Cognition Level of Alertness Alert Orientation Name Language Function Ability Hard of Hearing Safety Awareness Understands Safety Issues Gross Range of Motion Lower Extremity ROM Assessment Within Functional Limits Strength Lower Extremity Strength Assessment Within Functional Limits Muscle Tone Muscle Tone WNL Yes M6 PT-IP Treatment Start: 05/11/20 15:55 Freq: NEEDED Status: Active Protocol: Document 05/11/20 14:52 AB (Rec: 05/11/20 16:02 AB [email or web address]) Physical Therapy Treatment Education Education Provided Safety M7 PT-IP Assessment and Plan Start: 05/11/20 15:55 Freq: NEEDED Status: Active Protocol: Document 05/11/20 14:52 AB (Rec: 05/11/20 16:02 AB [email or web address]) PT Summary Assessment and Plan Potential Rehabilitation Potential Good Status of Condition at Evaluation Stable Summary Progress Towards Goals Safe For Discharge Assessment Summary PT eval completed and no further PT intervention indicated at this time. pt is steady with ambulation without AD and has no LOB. Tinetti balance assessment score of 28/28 which is a low fall risk. pt feels like he is at PLOF. Informed pt and spouse that no further PT is needed at this time and agreed . Frequency of Treatment Frequency Of Treatment Discharge Recommendations To Nursing Amount of Assist Needed Independent Discharge Recommendations Transportation Needs at Discharge Private Vehicle
--- NOTE | 2020-05-11 15:06 | PC.NURSE ---
Patient had Plavix in ED, so declined this AM and says he takes it at night. Also said he takes and I looked at his Rosuvistatin order and he takes 20mg 2x a day. Orders were put in wrong. I tried to telephone Dr. Ledesma's office but never received a call back. Let oncoming shift JEAN CARLOS Jalloh know about medications.
[2020-05-11 15:35] VITALS: BP 129/76; PULSE 61; RESP 17; TEMP 37.1; O2SAT 96
--- NOTE | 2020-05-11 18:06 | PM.DS.1 ---
History of Present Illness History of Present Illness Date Patient Seen: 05/11/20 Time Patient Seen: 18:06 Chief complaint: THINKS HAVING A TIA Narrative: 79-year-old male with a history of CABG, prior TIAs and hyperlipidemia presents with word-finding difficulties and mild word slurring first appreciated at 5:10 pm yesterday evening and completely resolved by time of exam in the emergency department. He is followed by outpatient Cardiology and Neurology and has had a full workup secondary to his history of prior TIAs, including echocardiogram and MRIs. He was recently discontinued from aspirin, per Neurology, but he does continue on Plavix. He is otherwise compliant with his medications. Vital signs upon arrival in the ED included temperature of 98.1?, pulse 64, respirations 16, blood pressure 180/83, O2 saturation 98% on room air. Workup significant for a negative CT head, slightly low WBC at 3.2, and slightly elevated BUN at 23. Tele-neurologist, Dr. Avila, was consulted and he recommended dual anti-platelet therapy for 21 days and admission for completion of his stroke workup including echo and MRI. Patient has had an uneventful night. Discharge Providers Provider Date of admission: 05/10/20 21:40 Discharge Date: 05/11/20 Primary care physician: Lupe Ledesma MD Consults: 05/11/20 09:03 Consult to Discharge Planning Routine Comment: Consult to Occupational Therapy Evaluate & Treat Comment: Physician Instructions: Evaluate and treat Consult to Physical Therapy Evaluate & Treat Comment: Physician Instructions: Evaluate and Treat Consult to Speech Therapy Evaluate & Treat Comment: Physician Instructions: Evaluate and treat Discharge provider: Lupe Ldeesma MD Summary Hospital Course Discharge Diagnosis: 1. TIA 2. Hypertension 3. Hyperlipidemia Hospital Course: Patient had uneventful hospital course. Stroke protocol MRI and echo showed no acute reasons for TIA. On day of discharge, patient was back to baseline with stable vital signs throughout. He will be discharged on 21 day course of aspirin in addition to his plavix. His statin was doubled. He is instructed to follow-up with neurology and cardiology in the short term and return to primary care clinic in the next week. Time spent on Discharge and Coordination of post-hospital care: 35 minutes Status at Discharge Cognitive/behavioral status at discharge: at baseline, oriented Functional status at discharge: independent ambulation Overall status at discharge: patient is back to baseline Exam Vital Signs (past 8 hours): - 05/11/20 10:38 05/11/20 11:23 05/11/20 15:35 Temperature 97.9 F 98.8 F Pulse Rate 78 69 61 Respiratory Rate 15 17 Blood Pressure 134/78 125/78 129/76 Pulse Oximetry 97 96 Oxygen Delivery Method Room Air Oxygen Flow Rate 0 Narrative Exam Narrative: GENERAL: Alert and oriented, appearing stated age and in no acute distress. HEENT: Head normocephalic/atraumatic. Pupils equal, round, and reactive to light and accomodation. Extraocular muscles intact. Tympanic membranes clear. Nasal mucosa moist, septum midline. Oral mucosa moist, no lesions. Neck soft and supple, no lymphadenopathy. LUNGS: Clear to ausculation bilaterally, no wheezes, rhonchi or rales. CV: Normal S1 and S2 with regular rate and rhythm, no audible murmurs, rubs or gallops. ABDOMEN: Soft, non-tender, non-distended, no organomegaly. Positive bowel sounds. EXTREMITIES: No clubbing, cyanosis, or edema. NEURO: Cranial nerves II through XII grossly intact, no focal deficits. PSYCH: Alert and oriented x 3. SKIN: No concerning lesions. Objective Labs Result Diagrams: 05/10/20 17:53 05/10/20 17:53 Labs: Laboratory Results - last 24 hr 05/10/20 05/10/20 05/10/20 17:53 17:53 17:53 WBC 3.2 L RBC 4.16 L Hgb 14.1 Hct 41.0 MCV 98.4 MCH 33.9 MCHC 34.4 RDW 13.2 Plt Count 181 Neut % (Auto) 44.1 L Lymph % (Auto) 45.3 H [place] % (Auto) 8.0 Eos % (Auto) 2.1 Baso % (Auto) 0.5 Neut # (Auto) 1400 L Lymph # (Auto) 1500 [place] # (Auto) 300 Eos # (Auto) 100 Baso # (Auto) 0 PT 10.7 INR 0.9 APTT 29 Sodium 139 Potassium 4.3 Chloride 104 Carbon Dioxide 29 BUN 23 H Creatinine 1.03 Estimated GFR > 60.0 BUN/Creatinine Ratio 22.3 H Glucose 97 Calcium 9.7 Total Creatine Kinase CK-MB (CK-2) CK-MB (CK-2) Rel Index Troponin I Ethyl Alcohol COVID-19 PCR 05/10/20 05/10/20 17:53 21:00 WBC RBC Hgb Hct MCV MCH MCHC RDW Plt Count Neut % (Auto) Lymph % (Auto) [place] % (Auto) Eos % (Auto) Baso % (Auto) Neut # (Auto) Lymph # (Auto) [place] # (Auto) Eos # (Auto) Baso # (Auto) PT INR APTT Sodium Potassium Chloride Carbon Dioxide BUN Creatinine Estimated GFR BUN/Creatinine Ratio Glucose Calcium Total Creatine Kinase 172 H CK-MB (CK-2) 2.52 H CK-MB (CK-2) Rel Index 1.5 Troponin I < 0.012 Ethyl Alcohol < 10 COVID-19 PCR Negative Discharge Plan Discharge Plan Patient Disposition: Home Discharge orders & Medications Prescriptions: New aspirin 81 mg Tablet,Delayed Release (Dr/Ec) 160 mg PO DAILY 21 Days Qty: 21 RF: 0 rosuvastatin 10 mg Tablet 40 mg PO DAILY Qty: 90 RF: 3 Continued clopidogrel [Plavix] 75 MG tablet 75 mg PO QDAY Qty: 0 RF: 0 CA PANTOTHENATE/FOLIC ACID/VIT (MULTIVITAMIN) Qty: 0 RF: 0 CHOLECALCIFEROL (VITAMIN D3) (Vitamin D3) tablet PO Qty: 0 RF: 0 atenolol 25 mg tablet 12.5 mg PO DAILY RF: 0 losartan 25 mg Tablet 12.5 mg PO DAILY RF: 0 Discontinued rosuvastatin [Crestor] 10 MG tablet 20 mg PO QD-BID Qty: 0 RF: 0 Follow up/Referrals: Lupe Ledesma MD [Physician] - Diet/Activity/Treatments Diet: Diet as Tolerated Activity: As tolerated Skin/Wound/Dressing Care Report to your healthcare provider any signs of infection, such as:: chills, fever and increased pain Visit Report/Discharge Packet Instructions: DI for Transient Ischemic Attack Visit Report Forms: Congestive Heart Failure, Patient Portal/API, Stroke Signs & Symptoms Discharge Data Attending Provider: Gunnar Finch Admit Date/Time: 05/10/20 21:40 Discharges patient from system. Discharge Date/Time: 05/11/20 18:47
--- NOTE | 2020-05-11 18:47 | PC.NURSE ---
late entry: pt a&Ox3. NIH:0. no pain, dizziness or sob. gave me an ok to DC patient. told patient that ECHO and MRI were negative and they need to make an appointment within a week with Dr. Ledesma. pt already has an appointment made. DC instruction regarding meds and new prescription given to patient and . Pt escorted downstairs with wheelchair. IV dc, tele DC.
== END 2020-05-11 18:47 | disposition home or self-care (01) ==
LOC: ED 18:05 → AC 21:44
PROVIDERS: Emergency Medicine; Admitting Provider Family Medicine; Emergency Provider Emergency Medicine; Referring Provider Emergency Medicine; Visit Provider Family Medicine
DX: G45.9 Transient cerebral ischemic attack, unspecified (principal); R29.818 Other symptoms and signs involving the nervous system; Z95.1 Presence of aortocoronary bypass graft; E78.5 Hyperlipidemia, unspecified; Z79.01 Long term (current) use of anticoagulants; I10 Essential (primary) hypertension; Z11.59 Encounter for screening for other viral diseases
CPT/HCPCS: 36415; 70450; 70553; 80048; 80320; 82550; 82553; 84484; 85025; 85610; 85730; 87635; 93005; 93306; 97161; 99284; G0378; A9579

== ENCOUNTER → 2021-09-14 15:16 | Outpatient (CLI) | payer MEDICARE, OTHER, SELFPAY ==
[2020-05-10 22:16] VITALS: BMI 22.5
--- NOTE | 2021-09-14 | DI.MRI.S_ITS ---
PROCEDURE: MR LUMBAR SPINE WO CON INDICATIONS: Low back pain, unspecified TECHNIQUE: Noncontrast sagittal T1 spin echo and T2 fast echo, sagittal STIR, axial T1 and T2 fast spin echo through the lumbar spine. In cases with scoliosis, additional coronal T2 fast spin echo may be performed. COMPARISON: None. FINDINGS: Image quality: Excellent. Alignment and Curvature: Grade 1 retrolisthesis is seen at the L2-L3 level. Minimal retrolisthesis is seen at L3-L4 and at L5-S1. Bone Marrow: Marrow is of normal overall signal. No acute vertebral body compression fractures. Spinal Cord: Conus medullaris terminates at the L1 level. Visualized cord demonstrates normal signal and size. Paraspinous Soft Tissues: No paravertebral masses. T12-L1: Mild loss of disc height is seen. Loss of disc signal is seen. No significant neural foraminal or central canal narrowing can be seen. L1-L2: Moderate to severe loss of disc height and disc signal can be seen. Reactive marrow endplate changes are seen which are hypointense on T1-weighted imaging and hyperintense on T2 weighted imaging, which is most consistent with edema (Modic type I changes). Bridging endplate osteophytes are seen. Mild generalized disc bulge is seen. There is mogu-yr-xvqewwwh left-sided and minimal right-sided neural foraminal narrowing. Mild central canal narrowing is seen. L2-L3: Moderate to severe loss of disc height and disc signal can be seen at this level. Mild to moderate disc bulge is seen. There is vftw-sl-cqcfrsms left-sided and mild right-sided neural foraminal narrowing. Mild central canal narrowing is seen. L3-L4: Sfuu-sm-wwemrmmq loss of disc height and disc signal can be seen. Mild to moderate disc bulge is seen. Mild to moderate facet hypertrophy can be seen. Moderate bilateral neural foraminal narrowing is seen. Moderate central canal narrowing is seen. L4-L5: Moderate loss of disc height is seen. Loss of disc signal is seen. At least moderate disc bulge is seen, which is eccentric to the right. There is a superimposed central disc protrusion. At least moderate facet hypertrophy is seen at this level. There is moderate to severe bilateral neural foraminal narrowing seen. There is a degree of compression seen upon the exiting nerve roots. At least moderate central canal narrowing is seen. L5-S1: The disc height is well-preserved. Loss of disc signal is seen at this level. Mild to moderate disc bulge is seen. There is a superimposed central disc protrusion. At least moderate facet hypertrophy is seen. There is moderate to severe left-sided and at least moderate right-sided neural foraminal narrowing. A mild degree of compression can be seen upon the exiting nerve roots, left worse than right. Minimal central canal narrowing is seen. IMPRESSION: Multiple levels of lumbar spine degenerative change are seen, which are overall worst at the L4-L5 level. Dictated by: Mervin Wall M.D. on 09/14/2021 at 15:34 Approved by: Mervin Wall M.D. on 09/14/2021 at 15:39
== END ==
PROVIDERS: PCP Student in an Organized Health Care Education/Training Program; Referring Provider Physical Medicine & Rehabilitation Pain Medicine; Visit Provider Physical Medicine & Rehabilitation Pain Medicine
DX: M54.50 Low back pain, unspecified (principal); M51.36 Other intervertebral disc degeneration, lumbar region; M48.061 Spinal stenosis, lumbar region without neurogenic claudication
CPT/HCPCS: 72148

== ENCOUNTER → 2021-10-17 14:43 | Outpatient (CLI) | payer MEDICARE, OTHER, SELFPAY ==
[2020-05-10 22:16] VITALS: BMI 22.5
== END ==
PROVIDERS: Family Provider Student in an Organized Health Care Education/Training Program; PCP Student in an Organized Health Care Education/Training Program; Referring Provider Student in an Organized Health Care Education/Training Program; Visit Provider Student in an Organized Health Care Education/Training Program

== ENCOUNTER 2021-10-31 10:11 | Observation (INO) | payer MEDICARE, OTHER, SELFPAY ==
[2020-05-10 22:16] VITALS: BMI 22.5
[2021-10-31] VITALS (17 sets, daily range): BP systolic 115–177; BP diastolic 60–77; PULSE 51–65; RESP 15–22; TEMP 36.7–36.9; O2SAT 94–100; BMI 22.2
--- NOTE | 2021-10-31 10:22 | DI.CT.S_ITS ---
PROCEDURE: CT STROKE INDICATIONS: Altered mental status TECHNIQUE: Noncontrast 4.5 mm thick angled axial sections acquired from the foramen magnum to the vertex, with coronal reformats. For radiation dose reduction, the following was used: automated exposure control, adjustment of mA and/or kV according to patient size. COMPARISON: MR, MR HEAD/BRAIN WO/W CON, 05/11/2020, 7:41. [facility], CT, CT HEAD/BRAIN WO CON, 07/06/2018, 11:51. CT, CT HEAD/BRAIN WO CON, 05/10/2020, 17:59. FINDINGS: Image quality: Excellent. CSF spaces: Basal cisterns are patent. No extra-axial fluid collections. The ventricles are symmetric in size and shape. Brain: No intracranial bleeds or masses. 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 There is moderate cerebral volume loss for age, with resultant ventricular and sulcal prominence. There are moderate periventricular and deep white matter chronic small vessel ischemic changes. There is intracranial internal carotid artery atherosclerosis. Skull and face: Calvarium and visualized facial bones appear intact, without suspicious lesions. Sinuses: Visualized sinuses and mastoids are clear. IMPRESSION: 1. No acute intracranial abnormalities. 2. Cerebral volume loss and chronic microvascular ischemic changes. The result was discussed with Dr. Fernandes in ER prior to dictation. This study fulfills neurological imaging criteria for inclusion or exclusion of acute stroke therapies based on available published neurological guidelines. Dictated by: Vaishali Ware M.D. on 10/31/2021 at 10:53 Approved by: Vaishali Ware M.D. on 10/31/2021 at 10:58
--- NOTE | 2021-10-31 10:22 | DI.CT.S_ITS ---
PROCEDURE: CT ANGIO HEAD AND NECK INDICATIONS: Altered mental status TECHNIQUE: After the administration of intravenous contrast, 1 mm thick sections acquired from the aortic arch through the [place]. Post-contrast 4.5 mm thick sections then re-acquired from the foramen magnum to the vertex. 3-dimensional ynqoodr-rnbcopoqj-equzkoavmk (MIP) and/or volume rendering reformats were acquired of the central intracranial vasculature and neck separately. For radiation dose reduction, the following was used: automated exposure control, adjustment of mA and/or kV according to patient size. COMPARISON: [facility], CT, CT HEAD/BRAIN WO CON, 05/10/2020, 17:59. [facility], MR, MR HEAD/BRAIN WO/W CON, 05/11/2020, 7:41. [facility], CT, CT STROKE, 10/31/2021, 10:28. FINDINGS: Image quality: Excellent. BRAIN: CSF spaces: Ventricles are normal in size and shape. Basal cisterns are patent. No extra-axial fluid collections. Brain: No midline shift. No intracranial bleeds or masses. Hu-white matter interface appears intact. Skull and face: Calvarium and facial bones appear intact, without suspicious lesions. Orbits appear normal. Sinuses: Sinuses and mastoids are clear. HEAD CT ANGIOGRAPHY: Anterior circulation: Intracranial internal carotid arteries are normal in size and flow. Severe calcified plaques in cavernous segment of the internal carotid arteries bilaterally. The flow within the paired anterior cerebral arteries is normal and symmetric. The flow within the middle cerebral arteries is normal and symmetric. The anterior communicating artery is seen. No aneurysms are seen. Posterior circulation: Visualized portions of the vertebral arteries demonstrate normal caliber, and join to form a normal appearing basilar artery. Flow within the posterior cerebral arteries is normal and symmetric. No aneurysms are seen. NECK CT ANGIOGRAPHY: Carotid system: The great vessels demonstrate a conventional anatomy as they arise from the aortic arch. The origins of the common carotid arteries appear patent. The common carotid arteries demonstrate normal caliber and courses. Calcified plaques at the carotid bifurcations bilaterally. The proximal internal carotid arteries demonstrate mild stenosis bilaterally. Posterior circulation: The origins of the vertebral arteries both appear widely patent. The more superior extracranial portions of both vertebral arteries also demonstrate normal courses and calibers. They join to form a normal appearing basilar artery. Soft tissues: Visualized neck soft tissues demonstrate no suspicious abnormalities. Bones: No suspicious bony lesions. Visualized cervical spine appears normally aligned. Moderate degenerative disease in cervical spine. IMPRESSION: 1. No acute intracranial abnormalities. 2. No occlusion or high-grade stenosis in anterior or posterior circulations. 3. No occlusion or high-grade stenosis in cervical carotid arteries or vertebral arteries bilaterally. Any quantitative measurements of stenosis were performed using NASCET criteria. Dictated by: Vaishali Ware M.D. on 10/31/2021 at 11:00 Approved by: Vaishali Ware M.D. on 10/31/2021 at 11:06
--- NOTE | 2021-10-31 10:23 | ED.NEUROSD ---
HPI - Neuro Symptoms/Deficit General Chief Complaint: Neuro Symptoms/Deficit Stated Complaint: Thinks TIA- slurred speech Time Seen by Provider: 10/31/21 10:21 History of Present Illness HPI Narrative: Code stroke called at 10:20 a.m.. Patient brought in by . Patient had already been awake this morning she saw him this morning and they did talk. However at 9:30 a.m. this morning 15 minutes ago had sudden onset of a word salad and confusion. No slurred speech. No facial droop. No limb weakness. No syncope. No headache. Has history TIA in the past. Patient has history of AML. No recent illness. Blood sugar 143. Related Data Home Medications Medication Instructions Recorded Confirmed clopidogrel 75 mg tablet (Plavix) 75 mg PO QPM ##0 06/22/12 11/14/21 atenolol 25 mg tablet 12.5 mg PO BID 05/10/20 11/14/21 losartan 25 mg tablet 12.5 mg PO DAILY 05/10/20 11/14/21 coenzyme Q10 100 mg capsule 100 mg PO DAILY 09/27/21 11/14/21 (CoQ-10) vit C 250 mg-vit E 90 mg-zinc 40 1 tab PO BID 09/27/21 11/14/21 mg-copper 1 qg-sudnfw-iihcck capsule (PreserVision AREDS-2) levofloxacin 750 mg tablet 750 mg PO DAILY 10/17/21 11/14/21 posaconazole 100 mg tablet,delayed 300 mg PO DAILY 10/17/21 11/14/21 release ubiquinol 200 mg-B12 5 mg-folic 1 cap PO DAILY 10/17/21 11/14/21 acid 0.8 mg-resveratrol 400 mg capsule acyclovir 800 mg tablet 800 mg PO BID 10/31/21 11/14/21 Previous Rx's Medication Instructions Recorded rosuvastatin 10 mg tablet 40 mg PO DAILY #90 tabs 05/11/20 ondansetron 4 mg disintegrating 4 mg PO Q6H PRN Nausea #30 tabs 10/18/21 tablet Allergies Allergy/AdvReac Type Severity Reaction Status Date / Time No Known Drug Allergies Allergy Verified 10/31/21 10:26 Review of Systems Review of Systems Narrative: GENERAL: Denies chills, fatigue, malaise, fever, sweats. HEENT: Denies sinus pain, ear pain, sore throat RESPIRATORY: Denies dyspnea, cough CARDIOVASCULAR: Denies chest pain, palpitations GASTROINTESTINAL: Denies nausea, vomiting, abdominal pain : Denies dysuria, frequency, hematuria MUSCULOSKELETAL: denies muscle or bony pain SKIN: Denies rash, skin lesions NEUROLOGIC: Denies weakness, numbness, patient is awake alert orient times 4 however at times when we asked the same question gets the wrong answer. Clear speech no facial droop. Light touch intact to bilateral face hands and feet. Strong equal skip tracer bilaterally and ankle flexion hip flexion and knee flexion. Strong bilateral patellar reflexes. No pronator drift. ROS Unobtainable: All systems reviewed & are unremarkable except as noted in HPI and below Patient History Medical History (Updated 10/31/21 @ 11:04 by Juan David Fernandes MD) Hyperlipidemia Hypertension TIA (transient ischemic attack) Surgical History (Updated 09/27/21 @ 16:41 by John Schneider MD) Hx of CABG No pertinent past surgical history Social History household members: spouse Smoking Status: Never smoker Smoking Status: Never smoker alcohol intake frequency: a few times a week Substance Use Type: does not use Exam Initial Vital Signs Initial Vital Signs: Vital Signs Temperature 98.2 F 10/31/21 10:20 Pulse Rate 57 L 10/31/21 10:20 Respiratory Rate 15 10/31/21 10:20 Blood Pressure 177/74 H 10/31/21 10:20 Pulse Oximetry 99 10/31/21 10:20 Oxygen Delivery Method 10/31/21 10:20 Scores NIH Stroke Scale Level of Conciousness: Alert, keenly responsive Ask month/age: Answers both questions correctly. Open/close eyes, close hand: Performs both tasks correctly Best gaze horizontal: Normal Visual slade: No visual loss Facial palsy: Normal symetrical movement Left arm drift: No drift for full 10 sec Right arm drift: No drift for full 10 sec Left leg drift: No drift for full 5 sec Right leg drift: No drift for full 5 sec Limb ataxia: Absent Sensory on face/arms/legs: Normal, no sensory loss Best language: Mild to moderate, slurs some words Dysarthria: Mild to mod,some slurring Extinction or inattention: No abnormality Total NIH Stroke scale score: 2 Course Course Course Narrative: No new issues during course of stay Orders Ordered: Discontinued Medications Acetaminophen (Acetaminophen 325 Mg Tablet) 650 mg PO Q6HR [facility] Last Admin: 11/01/21 07:15 Dose: Not Given Documented By: Admin: 11/01/21 01:16 Dose: Not Given Documented By: MEREDITH Acyclovir (Acyclovir 400 Mg Tablet) 800 mg PO BID [facility] Last Admin: 11/01/21 08:39 Dose: 800 mg Documented By: Admin: 10/31/21 21:27 Dose: Not Given Documented By: MEREDITH Atenolol (Atenolol 25 Mg Tablet) 12.5 mg PO BID [facility] Last Admin: 11/01/21 08:48 Dose: 12.5 mg Documented By: Admin: 10/31/21 21:23 Dose: 12.5 mg Documented By: MEREDITH Atorvastatin Calcium (Atorvastatin 20 Mg Tablet) 80 mg PO DAILY [facility] Last Admin: 11/01/21 08:39 Dose: 80 mg Documented By: RADHA Clopidogrel Bisulfate (Clopidogrel 75 Mg Tablet) 75 mg PO QPM [facility] Clopidogrel Bisulfate (Clopidogrel 75 Mg Tablet) 75 mg PO NOW ONE Stop: 10/31/21 21:04 Last Admin: 10/31/21 21:24 Dose: 75 mg Documented By: MEREDITH Sodium Chloride (Normal Saline 0.9%) 1,000 mls @ 125 mls/hr IV CONT [facility] Last Infusion: 10/31/21 16:39 Dose: 125 mls/hr Documented By: Admin: 10/31/21 12:31 Dose: 125 mls/hr Documented By: CHETAN Levofloxacin (Levofloxacin 250 Mg Tablet) 750 mg PO DAILY [facility] Levofloxacin (Levofloxacin 250 Mg Tablet) 750 mg PO 1700 [facility] Losartan Potassium (Losartan 25 Mg Tablet) 12.5 mg PO DAILY [facility] Last Admin: 11/01/21 08:41 Dose: 12.5 mg Documented By: RADHA Lutein (Vit C/E/Zn/Coppr/Lutein/Zeaxan Capsule) 1 cap PO BID [facility] Last Admin: 11/01/21 08:41 Dose: 1 cap Documented By: RADHA Naloxone HCl (Naloxone 0.4 Mg/Ml Vial) 0.2 mg IV Q2MIN PRN PRN Reason: Opiate Reversal (Posaconazole 100 Mg Tablet,Delayed Release (Dr/Ec)) 300 mg PO DAILY [facility] Last Admin: 11/01/21 08:45 Dose: Not Given Documented By: BR [id number]- Resveratrol 200-5-0. 8-400 Mg Capsule) 1 cap PO DAILY [facility] Vitamin K2 100 Mcg (Capsule)) 100 mcg PO DAILY [facility] Ondansetron HCl (Ondansetron 4 Mg/2 Ml Inj) 4 mg IV Q4HR PRN PRN Reason: Nausea And Vomiting Ondansetron HCl (Ondansetron 4 Mg Odt) 4 mg PO Q6H PRN PRN Reason: Nausea Ondansetron HCl (Ondansetron 4 Mg/2 Ml Inj) 4 mg IV Q8HR PRN PRN Reason: Nausea And Vomiting Reevaluation(s) Reevaluation #1: Symptoms have resolved. No word salad/dysarthria/dysphagia Time: 11:03 Consultations Consultation #1: Spoke with radiologist. CT scan head without contrast no acute process Time: 10:51 Consultation #2: Spoke with tele stroke neurologist Dr. Fernandez, at this time no tPA as symptoms have resolved. Needs admission for bowel to workup including echocardiogram and MRI. Time: 11:02 Consultation #3: Spoke with hospitalist, Dr. Myrick, will admit Time: : Additional Consultation(s): Spoke with primary care, Dr. Ledesma, she will admit patient. Vital Signs Vital signs: Vital Signs - 8 hr 10/31/21 10:20 10/31/21 10:37 10/31/21 10:41 Temperature 98.2 F Pulse Rate 57 L 59 L 60 Respiratory Rate 15 18 20 Blood Pressure 177/74 H 168/67 H Pulse Oximetry 99 100 100 10/31/21 11:00 10/31/21 11:01 Temperature Pulse Rate 54 L 55 L Respiratory Rate 18 17 Blood Pressure 131/63 Pulse Oximetry 99 99 MDM - Neuro Symptoms/Deficit Differential Diagnosis Differential diagnosis: Likely delirium, cerebrovascular accident and transient cerebral ischemia Lab Data Result diagrams: 11/01/21 05:21 11/01/21 05:21 Labs: Lab Results 10/31/21 10/31/21 10/31/21 Range/Units 10:25 10:25 10:25 WBC 1.4 L* (4.5-11.0) X10^3/uL RBC 3.12 L (4.5-5.9) X10^6/uL Hgb 11.6 L (13.5-17.5) g/dL Hct 32.9 L (41-53) % MCV 105.2 H (80-100) fL MCH 37.1 H (26-34) PG MCHC 35.2 (30-36) % RDW 13.5 (11.6-14.8) % Plt Count 73 L (150-400) X10^3/uL Neut % (Auto) Not Reportable Lymph % (Auto) Not Reportable Pratt % (Auto) Not Reportable Eos % (Auto) Not Reportable Baso % (Auto) Not Reportable Lymph # (Auto) Not Reportable Pratt # (Auto) Not Reportable Baso # (Auto) Not Reportable Total Counted 100 Seg Neutrophils % 49.0 (38-70) % Band Neutrophils % 1.0 L (3-7) % Lymphocytes % (Manual) 28.0 (25-45) % Atypical Lymphs % 21.0 H ( - 0) % Monocytes % (Manual) 1.0 L (2-11) % Neutrophils # (Manual) 700 L (6886-2866) /uL RBC Morphology Not Reportable Anisocytosis 1+ H PT 11.9 (10.1-12.7) SECONDS INR 1.1 (0.9-1.3) APTT 24 L D (26.4-36.2) SECONDS Sodium 127 L D (137-145) mmol/L Potassium 4.0 (3.4-5.1) mmol/L Chloride 94 L (98-107) mmol/L Carbon Dioxide 24 (22-32) mmol/L BUN 28 H (9-20) mg/dL Creatinine 1.17 (0.66-1.25) mg/dL Estimated GFR > 60 (>60) mL/min BUN/Creatinine Ratio 23.9 H (6-22) Glucose 147 H (80-110) mg/dL Calcium 8.4 (8.4-10.2) mg/dL Total Bilirubin 0.9 (0.2-1.3) mg/dL AST 39 (17-59) IU/L ALT 51 H (<50) IU/L Alkaline Phosphatase 75 (38-126) U/L Total Creatine Kinase 102 (55-170) U/L CK-MB (CK-2) 3.68 H (<2.37) ng/mL CK-MB (CK-2) Rel Index 3.6 (1.5-5.0) % Troponin I < 0.012 (0.01-0.034) ng/mL Total Protein 6.8 (6.3-8.2) g/dL Albumin 4.0 (3.5-5.0) g/dL Globulin 2.8 (1.7-4.1) g/dL Albumin/Globulin Ratio 1.4 (1.0-2.8) SARS-CoV-2 (PCR) (Negative) 10/31/21 Range/Units 11:07 WBC (4.5-11.0) X10^3/uL RBC (4.5-5.9) X10^6/uL Hgb (13.5-17.5) g/dL Hct (41-53) % MCV (80-100) fL MCH (26-34) PG MCHC (30-36) % RDW (11.6-14.8) % Plt Count (150-400) X10^3/uL Neut % (Auto) Lymph % (Auto) Pratt % (Auto) Eos % (Auto) Baso % (Auto) Lymph # (Auto) Pratt # (Auto) Baso # (Auto) Total Counted Seg Neutrophils % (38-70) % Band Neutrophils % (3-7) % Lymphocytes % (Manual) (25-45) % Atypical Lymphs % ( - 0) % Monocytes % (Manual) (2-11) % Neutrophils # (Manual) (0668-1109) /uL RBC Morphology Anisocytosis PT (10.1-12.7) SECONDS INR (0.9-1.3) APTT (26.4-36.2) SECONDS Sodium (137-145) mmol/L Potassium (3.4-5.1) mmol/L Chloride (98-107) mmol/L Carbon Dioxide (22-32) mmol/L BUN (9-20) mg/dL Creatinine (0.66-1.25) mg/dL Estimated GFR (>60) mL/min BUN/Creatinine Ratio (6-22) Glucose (80-110) mg/dL Calcium (8.4-10.2) mg/dL Total Bilirubin (0.2-1.3) mg/dL AST (17-59) IU/L ALT (<50) IU/L Alkaline Phosphatase (38-126) U/L Total Creatine Kinase (55-170) U/L CK-MB (CK-2) (<2.37) ng/mL CK-MB (CK-2) Rel Index (1.5-5.0) % Troponin I (0.01-0.034) ng/mL Total Protein (6.3-8.2) g/dL Albumin (3.5-5.0) g/dL Globulin (1.7-4.1) g/dL Albumin/Globulin Ratio (1.0-2.8) SARS-CoV-2 (PCR) Negative (Negative) Point of Care Testing Glucose POC [address] scan - head: Radiologist's Impression: [address] [address] [address] Scan Report Signed Patient: Ferny Collins MR#: [id number] : 1940 Acct:[id number] Age/Sex: 81 / M Date of Service: 10/31/21 Loc: ED Accession Number: [id number] ?? Procedure: CT Stroke Ordering Provider: Juan David Fernandes MD PROCEDURE:? CT STROKE ? INDICATIONS:? Altered mental status ? TECHNIQUE:? Noncontrast 4.5 mm thick angled axial sections acquired from the foramen magnum to the vertex, with coronal reformats.? For radiation dose reduction, the following was used:? automated exposure control, adjustment of mA and/or kV according to patient size.? ? COMPARISON:? MR, MR HEAD/BRAIN WO/W CON, 05/11/2020, 7:41.? [facility], CT, CT HEAD/BRAIN WO CON, 07/06/2018, 11:51.? CT, CT HEAD/BRAIN WO CON, 05/10/2020, 17:59. ? FINDINGS:? Image quality:? Excellent.? ? CSF spaces:? Basal cisterns are patent.? No extra-axial fluid collections.? The ventricles are symmetric in size and shape.? ? Brain:? No intracranial bleeds or masses.? Small old lacunar infarct in the left frontal white matter.? There is moderate cerebral volume loss for age, with resultant ventricular and sulcal prominence.? There are moderate periventricular and deep white matter chronic small vessel ischemic changes.? There is intracranial internal carotid artery atherosclerosis.? ? Skull and face:? Calvarium and visualized facial bones appear intact, without suspicious lesions.? ? Sinuses:? Visualized sinuses and mastoids are clear.? ? IMPRESSION:? ? 1. No acute intracranial abnormalities. 2. Cerebral volume loss and chronic microvascular ischemic changes. ? The result was discussed with Dr. Fernandes in ER prior to dictation. ? This study fulfills neurological imaging criteria for inclusion or exclusion of acute stroke therapies based on available published neurological guidelines.? ? ? Dictated by: Vaishali Ware M.D. on 10/31/2021 at 10:53 ? ? Approved by: Vaishali Ware M.D. on 10/31/2021 at 10:58 ? CTA - brain/neck: Radiologist's Impression: [address] [address] [address] Scan Report Signed Patient: Ferny Collins MR#: [id number] : 1940 Acct:[id number] Age/Sex: 81 / M Date of Service: 10/31/21 Loc: ED Accession Number: [id number] ?? Procedure: CT angio head and neck Ordering Provider: Juan David Fernandes MD PROCEDURE:? CT ANGIO HEAD AND NECK ? INDICATIONS:? Altered mental status ? TECHNIQUE:? After the administration of intravenous contrast, 1 mm thick sections acquired from the aortic arch through the [place] of [place].? Post-contrast 4.5 mm thick sections then re-acquired from the foramen magnum to the vertex.? 3-dimensional fklaclz-zdcezngkf-pgqdoikdsi (MIP) and/or volume rendering reformats were acquired of the central intracranial vasculature and neck separately. For radiation dose reduction, the following was used:? automated exposure control, adjustment of mA and/or kV according to patient size.? ? COMPARISON:? [facility], CT, CT HEAD/BRAIN WO CON, 05/10/2020, 17:59.? [facility], MR, MR HEAD/BRAIN WO/W CON, 05/11/2020, 7:41.? [facility], CT, CT STROKE, 10/31/2021, 10:28. ? FINDINGS:? Image quality:? Excellent.? ? BRAIN:? CSF spaces:? Ventricles are normal in size and shape.? Basal cisterns are patent.? No extra-axial fluid collections.? ? Brain:? No midline shift.? No intracranial bleeds or masses.? Hu-white matter interface appears intact.? ? Skull and face:? Calvarium and facial bones appear intact, without suspicious lesions.? Orbits appear normal.? ? Sinuses:? Sinuses and mastoids are clear.? ? HEAD CT ANGIOGRAPHY:? Anterior circulation:? Intracranial internal carotid arteries are normal in size and flow.? Severe calcified plaques in cavernous segment of the internal carotid arteries bilaterally.? The flow within the paired anterior cerebral arteries is normal and symmetric.? The flow within the middle cerebral arteries is normal and symmetric.? The anterior communicating artery is seen.? No aneurysms are seen.? ? Posterior circulation:? Visualized portions of the vertebral arteries demonstrate normal caliber, and join to form a normal appearing basilar artery.? Flow within the posterior cerebral arteries is normal and symmetric.? No aneurysms are seen.? ? NECK CT ANGIOGRAPHY:? Carotid system:? The great vessels demonstrate a conventional anatomy as they arise from the aortic arch.? The origins of the common carotid arteries appear patent.? The common carotid arteries demonstrate normal caliber and courses.? Calcified plaques at the carotid bifurcations bilaterally.? The proximal internal carotid arteries demonstrate mild stenosis bilaterally.? ? Posterior circulation:? The origins of the vertebral arteries both appear widely patent.? The more superior extracranial portions of both vertebral arteries also demonstrate normal courses and calibers.? They join to form a normal appearing basilar artery.? ? Soft tissues:? Visualized neck soft tissues demonstrate no suspicious abnormalities.? ? Bones:? No suspicious bony lesions.? Visualized cervical spine appears normally aligned.? Moderate degenerative disease in cervical spine. ? ? IMPRESSION:? ? ? 1. No acute intracranial abnormalities. ? 2. No occlusion or high-grade stenosis in anterior or posterior circulations. ? 3. No occlusion or high-grade stenosis in cervical carotid arteries or vertebral arteries bilaterally. ? ? Any quantitative measurements of stenosis were performed using NASCET criteria.? ? ? Dictated by: Vaishali Ware M.D. on 10/31/2021 at 11:00 ? ? Approved by: Vaishali Ware M.D. on 10/31/2021 at 11:06 ? ECG Data Interpretation: Sinus bradycardia rate [address] elevation or depression MDM Narrative Medical decision making narrative: Over for admission for stroke evaluation. Patient agrees. Reviewed with primary care and will admit. Critical Care Time Critical Care Time Attestation: Critical Care Time 35 minutes: Critical care time is separate from other billable procedures. This critical care time includes consultation with family and other consulting doctors, review of records, and interpretation of data from labs, EKGs, imaging, etc. Discharge Plan Departure Patient Disposition: Admitted as Observation Clinical Impression: TIA (transient ischemic attack) Admit Date/Time: 10/31/21 11:22 Admit Provider: Lupe Ledesma
[2021-10-31 10:35] LABS: Hematocrit 32.9 % (41-53); Hemoglobin 11.6 g/dL (13.5-17.5); Mean Corpuscular HGB Conc 35.2 % (30-36); Mean Corpuscular Hemoglobin 37.1 PG (26-34); Mean Corpuscular Volume 105.2 fL (80-100); Platelet Count 73 X10^3/uL (150-400); Red Blood Cell Count 3.12 X10^6/uL (4.5-5.9); Red Cell Distribution Width 13.5 % (11.6-14.8)
[2021-10-31 10:36] LABS: Add Manual Diff / Slide Review YES; White Blood Cell Count 1.4 X10^3/uL (4.5-11.0)
[2021-10-31 10:41] LABS: INR 1.1 (0.9-1.3); Prothrombin Time 11.9 SECONDS (10.1-12.7)
[2021-10-31 10:44] LABS: PTT Partial Thromboplastin Tim 24 SECONDS (26.4-36.2)
[2021-10-31 10:47] LABS: Alanine Aminotransferase 51 IU/L (<50); Albumin Globulin Ratio 1.4 (1.0-2.8); Alkaline Phosphatase 75 U/L (38-126); Aspartate Aminotransferase 39 IU/L (17-59); BUN Creatinine Ratio 23.9 (6-22); Bilirubin Total 0.9 mg/dL (0.2-1.3); Blood Urea Nitrogen 28 mg/dL (9-20); Calcium 8.4 mg/dL (8.4-10.2); Carbon Dioxide 24 mmol/L (22-32); Chloride 94 mmol/L (98-107); Creatine Kinase 102 U/L (55-170); Estimated Glomerular Filt Rate > 60 mL/min (>60); Globulin 2.8 g/dL (1.7-4.1); Glucose 147 mg/dL (80-110); HEMOLYSIS < 15 (0-50); Sodium 127 mmol/L (137-145); Total Protein 6.8 g/dL (6.3-8.2)
[2021-10-31 10:53] LABS: Anisocytosis 1+; Neutrophils Absolute Manual 700 /uL (3000-5900); Total Cells Counted 100
[2021-10-31 10:58] LABS: Troponin I < 0.012 ng/mL (0.01-0.034)
[2021-10-31 11:02] LABS: CKMB % Relative Index 3.6 % (1.5-5.0); Creatine Kinase MB 3.68 ng/mL (<2.37)
--- NOTE | 2021-10-31 11:04 | DI.ECHO.S_ITS ---
[facility]---------[facility] +---------+ : : [address] : : : : [id number] : : : : Phone: [phone] Echocardiogram Report + + :Name: PETEY BORDEN Study Date: 10/31/2021 Height: 70 in : :[facility] ReadingLocation: Weight: 155 lb : : Gender: Male BSA: 1.9 m2 : :: 1940 Age: 81 yrs BP: 135/67 mmHg: :Reason For Study: STROKE : :Ordering Physician: HENRY, : :ROSIO Performed By: Sabra Winters : :Referring: ROSIO FIGUEROA : + + Interpretation Summary 1) Normal left ventricular size and thickness with mildly reduced systolic function (EF about 45%). 2) Normal right ventricular size with low normal function. 3) There is moderate to severe aortic stenosis (valve area 1.0cm2, mean gradient 15mmHg, severity ratio 0.29). 4) There is mild aortic regurgitation. 5) Compared to the Echo done 05/11/2020, LVEF has decreased from 55-60% to about 45% and aortic stenosis has progressed from mild-moderate to moderate- severe on this study. Procedure: A two-dimensional transthoracic echocardiogram with color flow and Doppler was performed. The study quality was technically adequate. Comparison is made with the echocardiogram of 05/11/2020. The patient was in sinus bradycardia with heart rates between 50-65 bpm during the exam. Left Ventricle: The left ventricle is normal in size and wall thickness. Left ventricular ejection fraction is estimated to be 45 +/- 5%. There is a mild dyssynchronous contraction pattern, consistent with a conduction abnormality. There is mild global hypokinesis of the left ventricle. Right Ventricle: The right ventricle is normal size. Right ventricular systolic function is at the lower limits of normal. Atria: The left atrial size is normal. Right atrial size is normal. There is no Doppler evidence for an interatrial shunt. Mitral Valve: The mitral valve leaflets appear mildly thickened, but open well. There is mild mitral annular calcification. The mitral papillary muscle appears thickened and/or calcified. There is mild mitral regurgitation. Aortic Valve: The aortic valve is trileaflet. The aortic valve is mildly calcified. There is mildly reduced leaflet mobility. The peak aortic velocity is 2.5 m/sec. The aortic valve mean gradient is 15 mmHg. The calculated aortic valve area is 1 cm2. There is moderate to severe aortic stenosis. There is mild aortic regurgitation. Tricuspid Valve: The tricuspid valve is normal in structure and function. There is trace tricuspid regurgitation. Pulmonary artery pressures cannot be estimated because of the lack of a measurable TR jet velocity. Pulmonic Valve: The pulmonic valve is not well visualized. There is no pulmonic valvular regurgitation. Great Vessels: The aortic root is normal size. The dimensions of the ascending aorta are normal. The IVC is of normal diameter and collapses greater than 50% with a sniff. This suggests a low right atrial pressure of 3 mm Hg. Pericardium/ Pleura There is no pericardial effusion. There is no pleural effusion. MMode/2D Measurements & Calculations LVIDd: 4.9 cm LVOT diam: 2.1 cm LVIDs: 3.9 cm Ao root diam: 3.2 cm FS: 20.7 % asc Aorta Diam: 2.9 cm IVSd: 0.67 cm Ao Arch Diam (Prox Trans): 2.8 cm LVPWd: 0.68 cm LV bueno. diameter/BSA (cm/m^2): 2.6 LV sys. diameter/BSA (cm/m^2): 2.1 LA A2 area: 19.9 cm2 RA long axis: 5.0 cm LA A4 area: 17.2 cm2 RA area: 15.4 cm2 LA length (vol): 5.6 cm RA vol: 40.5 ml LA vol: 51.5 ml RA : 21.6 ml/m2 LA vol index: 27.5 ml/m2 IVC diam: 1.2 cm RVD1 (basal): 3.6 cm RVD2 (mid): 3.2 cm TAPSE: 1.6 cm Doppler Measurements & Calculations Ao V2 max: 250.8 cm/sec LVOT Max Dustin: 72.5 cm/sec Ao V2 mean: 180.5 cm/sec LV V1 max P.1 mmHg Ao max P.2 mmHg LV V1 VTI: 17.6 cm Ao mean P.9 mmHg JOVANNY(I,D): 0.99 cm2 Ao V2 VTI: 60.6 cm JOVANNY(V,D): 0.99 cm2 sev ratio: 0.29 JOVANNY indexed to BSA (cm^2/m^2): 0.53 AI P1/2t: 763.1 msec AI dec slope: 149.6 cm/sec2 MV E max dustin: 78.1 cm/sec PA V2 max: 129.3 cm/sec MV A max dustin: 112.2 cm/sec PA V2 mean: 87.2 cm/sec MV E/A: 0.70 PA mean P.5 mmHg Med Peak E' Dustin: 5.2 cm/sec PA pr(Accel): 29.3 mmHg E/E' med: 15.1 Lat Peak E' Dustin: 7.5 cm/sec E/E' lat: 10.4 E/e' average: 12.8 MV dec time: 0.37 sec SV(LVOT): 60.1 ml Reading Physician:02:08 PM
--- NOTE | 2021-10-31 11:04 | DI.MRI.S_ITS ---
PROCEDURE: MR HEAD/BRAIN WO CON INDICATIONS: TIA TECHNIQUE: Non-contrast axial T1 spin echo, axial T2 fast spin echo, sagittal and axial FLAIR, coronal T2 fast spin echo, axial gradient echo, axial diffusion and ADC through the brain. COMPARISON: [facility], MR, MR HEAD/BRAIN WO/W CON, 05/11/2020, 7:41. [facility], CT, CT ANGIO HEAD AND NECK, 10/31/2021, 10:28. [facility], CT, CT STROKE, 10/31/2021, 10:28. FINDINGS: Image quality: Excellent. CSF spaces: Ventricles appear symmetric in size and shape. Basal cisterns are patent. No extra-axial fluid collections. Brain: No intracranial bleeds or mass effects. There is cerebral volume loss for age. There are periventricular and deep white matter chronic small vessel ischemic changes. Brainstem appears normal. Diffusion-weighted images show no acute ischemic insults. No chronic ischemic insults. Normal intravascular flow voids are present. Relatively prominent perivascular spaces are noted. Skull and face: Calvarial bone marrow is normal in signal. Orbits are normal. Note is made of bilateral lens replacements. Sinuses: Sinuses and mastoids are clear. IMPRESSION: No findings of acute or subacute infarction can be seen. Note is made of age-appropriate brain parenchymal volume loss and chronic small vessel ischemic changes. Dictated by: Mervin Wall M.D. on 10/31/2021 at 13:13 Approved by: Mervin Wall M.D. on 10/31/2021 at 13:15
[2021-10-31 11:53] LABS: COVID19 -Nasal RAPID Negative (Negative)
[2021-10-31 12:27] LABS: Bacteria Urine Few (2-10); Culture Indicated Urine Cult Not Indicated; RBC Urine 0-1/HPF (0-5/HPF); WBC Urine 1-5/HPF (0-5/HPF)
[2021-10-31] MEDS: SODIUM CHLORIDE 0.9% 1,000 ML 125 ML IV (12:31)
--- NOTE | 2021-10-31 18:48 | PC.NURSE ---
Pt to room 223 via stretcher from ED. Pt able to transfer self to bed. Pt ambulated to br and back to bed. Spouse at the bedside. Pt is steady on his feet and denies falls. Pt NIH is zero. Speech is clear and face is without droop. Pt oriented to room, call light, bed controls, and tv controls. Pt agrees to call for assistance as needed. IV hl.
--- NOTE | 2021-10-31 19:19 | PM.HP.1 ---
History of Present Illness History of Present Illness Date Patient Seen: 10/31/21 Time Patient Seen: 19:19 Chief complaint: Thinks TIA- slurred speech Narrative: 81-year-old male is admitted from the ED secondary to TIA. He is brought into the ED this morning when noticed that he had 15 minutes of sudden-onset word salad confusion. No slurred speech or facial droop. No limb weakness or syncope. No headache. He does have a past medical history of TIA; Dr. Fitzgerald, neurology consulting. History of CAD, managed by Dr. Hall, treating with plavix and aspirin. History of high cholesterol, hypertension, and metabolic syndrome, all controlled with medications and diet. Recently diagnosed with AML, has just started chemotherapy. Dr. Schneider took him off of his aspirin, was only taking it 3 times weekly, has been compliant with plavix. Vital signs upon admission to the ED included a temperature of 98.2?, pulse 57, respirations 15, blood pressure 177/74, O2 saturation 99% on room air. NIH stroke scale 2. CT head and CT angiogram negative. Lab significant for known pancytopenia which is at his baseline. He does have a new onset hyponatremia at 127. echo shows no significant changes. MRI stroke protocol negative. Now feels back to baseline, asymptomatic with no further neurological issues. Past medical history: Acute myeloid leukemia Hyperlipidemia Hypertension Metabolic syndrome TIA history Coronary artery disease History of Flores's esophagus Memory deficits BPH Erectile dysfunction Depression Seasonal allergies Past surgical history: CABG x 2 Family history: Father: from stroke Mother: from [place] Cousin: lupus Social history: to Maddison, one child. Retired [employer]. Moved to [place] in 2011 from [place], [place]. Patient History Medical History (Updated 10/31/21 @ 11:04 by Juan David Fernandes MD) Hyperlipidemia Hypertension TIA (transient ischemic attack) Surgical History (Updated 09/27/21 @ 16:41 by John Schneider MD) Hx of CABG No pertinent past surgical history Family & Social History Social History: household members spouse Prior Living Arrangements House Safety & Behavioral: Feels Safe in Current Yes Environment Been Physically Hurt or No Threatened By a Person Tobacco & Substance use: Smoking Status Never smoker alcohol intake frequency a few times a week Substance Use Type does not use Meds Home Medications and Allergies Home Medications Medication Instructions Recorded Confirmed Type clopidogrel 75 mg tablet (Plavix) 75 mg PO QPM #0 06/22/12 10/31/21 History atenolol 25 mg tablet 12.5 mg PO BID 05/10/20 10/31/21 History losartan 25 mg tablet 12.5 mg PO DAILY 05/10/20 10/31/21 History rosuvastatin 10 mg tablet 40 mg PO DAILY #90 tab 05/11/20 10/31/21 Rx coenzyme Q10 100 mg capsule 100 mg PO DAILY 09/27/21 10/31/21 History (CoQ-10) vit C 250 mg-vit E 90 mg-zinc 40 1 tab PO BID 09/27/21 10/31/21 History mg-copper 1 [id number] capsule (PreserVision AREDS-2) levofloxacin 750 mg tablet 750 mg PO DAILY 10/17/21 10/31/21 History posaconazole 100 mg tablet,delayed 300 mg PO DAILY 10/17/21 10/31/21 History release ubiquinol 200 mg-B12 5 mg-folic 1 cap PO DAILY 10/17/21 10/31/21 History acid 0.8 mg-resveratrol 400 mg capsule vitamin K2 100 mcg capsule 100 mcg PO DAILY 10/17/21 10/31/21 History ondansetron 4 mg disintegrating 4 mg PO Q6H PRN #30 tab 10/18/21 10/31/21 Rx tablet acyclovir 800 mg tablet 800 mg PO BID 10/31/21 10/31/21 History Allergies Allergy/AdvReac Type Severity Reaction Status Date / Time No Known Drug Allergies Allergy Verified 10/31/21 10:26 Review of Systems Review of Systems Narrative: All remaining ROS were reviewed and negative except as addressed. Exam Vital Signs (past 8 hours): - 10/31/21 11:30 10/31/21 12:00 10/31/21 12:01 Temperature Pulse Rate 55 L 54 L 54 L Respiratory Rate 21 22 18 Blood Pressure 146/65 H 138/64 Pulse Oximetry 98 99 99 10/31/21 12:30 10/31/21 13:00 10/31/21 13:30 Temperature Pulse Rate 51 L 54 L 58 L Respiratory Rate 21 16 Blood Pressure 135/63 135/67 136/60 Pulse Oximetry 99 100 99 10/31/21 14:30 10/31/21 15:00 10/31/21 15:30 Temperature Pulse Rate 59 L 61 63 Respiratory Rate 19 17 20 Blood Pressure 155/68 H 123/77 136/66 Pulse Oximetry 94 98 98 10/31/21 16:00 10/31/21 18:08 Temperature 98.5 F Pulse Rate 62 65 Respiratory Rate 20 16 Blood Pressure 136/66 122/62 Pulse Oximetry 95 97 Oxygen Delivery Method Room Air Narrative Exam Narrative: GENERAL: Alert and oriented, appearing stated age and in no acute distress. HEENT: Head normocephalic/atraumatic. Extraocular movements intact. LUNGS: Clear to ausculation bilaterally, no wheezes, rhonchi or rales. CV: Normal S1 and S2 with regular rate and rhythm, no audible murmurs, rubs or gallops. ABDOMEN: Soft, non-tender, non-distended, no organomegaly. Positive bowel sounds. EXTREMITIES: No clubbing, cyanosis, or edema. NEURO: Cranial nerves II through XII grossly intact, no focal deficits. Yvsiux-[id number], bgyy-ak-lzpu, dysdiadochokinesia normal. PSYCH: Alert and oriented x 3. SKIN: Recent injection sites x 2, right lower quadrant, slightly erythematous. Objective Labs Result Diagrams: 10/31/21 10:25 10/31/21 10:25 Labs: Laboratory Results - last 24 hr 10/31/21 10/31/21 10/31/21 10:25 10:25 10:25 WBC 1.4 L* RBC 3.12 L Hgb 11.6 L Hct 32.9 L MCV 105.2 H MCH 37.1 H MCHC 35.2 RDW 13.5 Plt Count 73 L Neut % (Auto) Not Reportable Lymph % (Auto) Not Reportable [place] % (Auto) Not Reportable Eos % (Auto) Not Reportable Baso % (Auto) Not Reportable Lymph # (Auto) Not Reportable [place] # (Auto) Not Reportable Baso # (Auto) Not Reportable Total Counted 100 Seg Neutrophils % 49.0 Band Neutrophils % 1.0 L Lymphocytes % (Manual) 28.0 Atypical Lymphs % 21.0 H Monocytes % (Manual) 1.0 L Neutrophils # (Manual) 700 L RBC Morphology Not Reportable Anisocytosis 1+ H PT 11.9 INR 1.1 APTT 24 L D Sodium 127 L D Potassium 4.0 Chloride 94 L Carbon Dioxide 24 BUN 28 H Creatinine 1.17 Estimated GFR > 60 BUN/Creatinine Ratio 23.9 H Glucose 147 H Calcium 8.4 Total Bilirubin 0.9 AST 39 ALT 51 H Alkaline Phosphatase 75 Total Creatine Kinase 102 CK-MB (CK-2) 3.68 H CK-MB (CK-2) Rel Index 3.6 Troponin I < 0.012 Total Protein 6.8 Albumin 4.0 Globulin 2.8 Albumin/Globulin Ratio 1.4 Urine RBC Urine WBC Urine Bacteria Ur Culture Indicated? SARS-CoV-2 (PCR) 10/31/21 10/31/21 11:07 11:48 WBC RBC Hgb Hct MCV MCH MCHC RDW Plt Count Neut % (Auto) Lymph % (Auto) [place] % (Auto) Eos % (Auto) Baso % (Auto) Lymph # (Auto) [place] # (Auto) Baso # (Auto) Total Counted Seg Neutrophils % Band Neutrophils % Lymphocytes % (Manual) Atypical Lymphs % Monocytes % (Manual) Neutrophils # (Manual) RBC Morphology Anisocytosis PT INR APTT Sodium Potassium Chloride Carbon Dioxide BUN Creatinine Estimated GFR BUN/Creatinine Ratio Glucose Calcium Total Bilirubin AST ALT Alkaline Phosphatase Total Creatine Kinase CK-MB (CK-2) CK-MB (CK-2) Rel Index Troponin I Total Protein Albumin Globulin Albumin/Globulin Ratio Urine RBC 0-1/hpf Urine WBC 1-5/hpf Urine Bacteria Few (2-10) H Ur Culture Indicated? Cult not indicated SARS-CoV-2 (PCR) Negative Assessment & Plan Assessment & Plan narrative: 1. TIA, resolved Plan: Overnight observation. Anticipate discharge to home in the morning with follow-up with neurology and oncology. Continue medical management of hypertension, hyperlipidemia, and lifestyle modification. Continue Plavix. 2. AML with pancytopenia, present on admission Plan: Patient is in the middle of chemotherapy, will contact Oncology and let them know of TIA. No change in medications at this point. 3. Hyponatremia, new Plan: Symptoms have resolved, do not suspect that 15 minutes of word salad was secondary to acute, symptomatic hyponatremia, possibly secondary to chemotherapy, will discuss with oncology. 4. Hypertension, chronic, controlled Plan: Continue home medications . 5. Hyperlipidemia, chronic, controlled Plan: Continue home medications. 6. Metabolic syndrome, chronic, diet-controlled Plan: Diabetic diet. 7. Coronary artery disease, chronic Plan: Anticoagulated on Plavix per Dr. Hall, outpatient cardiology. Echo stable. Carotid CTA negative. FLP on 09/18/21 well controlled on rosuvastatin. Blood pressure controlled on medications. Continue current outpatient treatment. Code: Full COVID: negative FEN: diabetic diet Dispo: likely home tomorrow. Quality VTE Deep Vein Thrombosis/Pulmonary Embolism Present on Admission: No
[2021-10-31] MEDS: atenoloL 25 MG TABLET 12.5 MG PO (21:23)
[2021-10-31] MEDS: CLOPIDOGREL 75 MG TABLET PO (21:24)
[2021-11-01 06:06] VITALS: BP 110/62; PULSE 58; RESP 16; TEMP 36.6; O2SAT 95
--- NOTE | 2021-11-01 06:16 | PM.DS.1 ---
History of Present Illness History of Present Illness Date Patient Seen: 11/01/21 Time Patient Seen: 06:16 Chief complaint: Thinks TIA- slurred speech Narrative: 81-year-old male is admitted from the ED secondary to TIA. He is brought into the ED this morning when noticed that he had 15 minutes of sudden-onset word salad confusion. No slurred speech or facial droop. No limb weakness or syncope. No headache. He does have a past medical history of TIA; Dr. Fitzgerald, neurology consulting. History of CAD, managed by Dr. Hall, treating with plavix and aspirin. History of high cholesterol, hypertension, and metabolic syndrome, all controlled with medications and diet. Recently diagnosed with AML, has just started chemotherapy. Dr. Schneider took him off of his aspirin, was only taking it 3 times weekly, has been compliant with plavix. Vital signs upon admission to the ED included a temperature of 98.2?, pulse 57, respirations 15, blood pressure 177/74, O2 saturation 99% on room air. NIH stroke scale 2. CT head and CT angiogram negative. Lab significant for known pancytopenia which is at his baseline. He does have a new onset hyponatremia at 127. echo shows no significant changes. MRI stroke protocol negative. Now feels back to baseline, asymptomatic with no further neurological issues. Past medical history: Acute myeloid leukemia Hyperlipidemia Hypertension Metabolic syndrome TIA history Coronary artery disease History of Flores's esophagus Memory deficits BPH Erectile dysfunction Depression Seasonal allergies Past surgical history: CABG x 2 Family history: Father: from stroke Mother: from [place] Cousin: lupus Social history: to Maddison, one child. Retired [employer]. Moved to [place] in 2011 from [place], [place]. Discharge Providers Provider Date of admission: 10/31/21 11:22 Discharge Date: 11/01/21 Primary care physician: Lupe Ledesma MD Consults: 10/31/21 19:57 Consult to Discharge Planning Routine Comment: Consult to Occupational Therapy Evaluate & Treat Comment: Physician Instructions: Evaluate and treat Consult to Physical Therapy Evaluate & Treat Comment: Physician Instructions: Evaluate and Treat Consult to Speech Therapy Evaluate & Treat Comment: Physician Instructions: Evaluate and treat Discharge provider: Lupe Ledesma MD Summary Hospital Course Discharge Diagnosis: 1.? TIA, resolved 2.? AML with pancytopenia, present on admission 3.? Hyponatremia, new 4.? Hypertension, chronic, controlled 5. Hyperlipidemia, chronic, controlled 6.? Metabolic syndrome, chronic, diet-controlled 7. ?Coronary artery disease, chronic Hospital Course: Hospital stay was unremarkable. TIA symptoms resolved shortly after arrival. MRI stroke protocol negative for CVA. Pancytopenia slightly better than baseline. New onset sodium thought to be secondary to chemo trended up on day of discharge. On day of discharge, patient is afebrile with stable vital signs throughout. He is discharged on his usual home medications to follow up with Oncology as scheduled. Also advised outpatient neurology follow-up. Planned follow-up in 2 weeks in clinic, sooner as needed. Exam Vital Signs (past 8 hours): - 11/01/21 06:06 Temperature 97.9 F Pulse Rate 58 L Respiratory Rate 16 Blood Pressure 110/62 Pulse Oximetry 95 Oxygen Delivery Method Room Air Narrative Exam Narrative: GENERAL: Alert and oriented, appearing stated age and in no acute distress. HEENT: Head normocephalic/atraumatic. Extraocular movements intact. LUNGS: Clear to ausculation bilaterally, no wheezes, rhonchi or rales. CV: Normal S1 and S2 with regular rate and rhythm, no audible murmurs, rubs or gallops. ABDOMEN: Soft, non-tender, non-distended, no organomegaly. Positive bowel sounds. EXTREMITIES: No clubbing, cyanosis, or edema. NEURO: Cranial nerves II through XII grossly intact, no focal deficits. PSYCH: Alert and oriented x 3. SKIN: No concerning lesions. Chemo Injection sites on right lower quadrant less erythematous today. Objective Labs Result Diagrams: 11/01/21 05:21 11/01/21 05:21 Labs: Laboratory Results - last 24 hr 10/31/21 10/31/21 10/31/21 10:25 10:25 10:25 WBC 1.4 L* RBC 3.12 L Hgb 11.6 L Hct 32.9 L MCV 105.2 H MCH 37.1 H MCHC 35.2 RDW 13.5 Plt Count 73 L Neut % (Auto) Not Reportable Lymph % (Auto) Not Reportable [place] % (Auto) Not Reportable Eos % (Auto) Not Reportable Baso % (Auto) Not Reportable Lymph # (Auto) Not Reportable [place] # (Auto) Not Reportable Baso # (Auto) Not Reportable Total Counted 100 Seg Neutrophils % 49.0 Band Neutrophils % 1.0 L Lymphocytes % (Manual) 28.0 Atypical Lymphs % 21.0 H Monocytes % (Manual) 1.0 L Neutrophils # (Manual) 700 L RBC Morphology Not Reportable Anisocytosis 1+ H PT 11.9 INR 1.1 APTT 24 L D Sodium 127 L D Potassium 4.0 Chloride 94 L Carbon Dioxide 24 BUN 28 H Creatinine 1.17 Estimated GFR > 60 BUN/Creatinine Ratio 23.9 H Glucose 147 H Calcium 8.4 Total Bilirubin 0.9 AST 39 ALT 51 H Alkaline Phosphatase 75 Total Creatine Kinase 102 CK-MB (CK-2) 3.68 H CK-MB (CK-2) Rel Index 3.6 Troponin I < 0.012 Total Protein 6.8 Albumin 4.0 Globulin 2.8 Albumin/Globulin Ratio 1.4 Urine RBC Urine WBC Urine Bacteria Ur Culture Indicated? SARS-CoV-2 (PCR) 10/31/21 10/31/21 11:07 11:48 WBC RBC Hgb Hct MCV MCH MCHC RDW Plt Count Neut % (Auto) Lymph % (Auto) [place] % (Auto) Eos % (Auto) Baso % (Auto) Lymph # (Auto) [place] # (Auto) Baso # (Auto) Total Counted Seg Neutrophils % Band Neutrophils % Lymphocytes % (Manual) Atypical Lymphs % Monocytes % (Manual) Neutrophils # (Manual) RBC Morphology Anisocytosis PT INR APTT Sodium Potassium Chloride Carbon Dioxide BUN Creatinine Estimated GFR BUN/Creatinine Ratio Glucose Calcium Total Bilirubin AST ALT Alkaline Phosphatase Total Creatine Kinase CK-MB (CK-2) CK-MB (CK-2) Rel Index Troponin I Total Protein Albumin Globulin Albumin/Globulin Ratio Urine RBC 0-1/hpf Urine WBC 1-5/hpf Urine Bacteria Few (2-10) H Ur Culture Indicated? Cult not indicated SARS-CoV-2 (PCR) Negative PFSH Medical History (Updated 10/31/21 @ 11:04 by Juan David Fernandes MD) Hyperlipidemia Hypertension TIA (transient ischemic attack) Surgical History (Updated 09/27/21 @ 16:41 by John Schneider MD) Hx of CABG No pertinent past surgical history Social History household members: spouse Smoking Status: Never smoker Discharge Plan Discharge Plan Patient Disposition: Home Discharge orders & Medications Prescriptions: Continued clopidogrel [Plavix] 75 MG tablet 75 mg PO QPM Qty: 0 0RF Label Comments: pt took this med in the ED Rx Instructions: Patient takes nightly acyclovir 800 mg tablet 800 mg PO BID 0RF Label Comments: take 1 tablet by mouth twice a day atenolol 25 mg tablet 12.5 mg PO BID 0RF Label Comments: take 1/2 tablet by mouth once daily losartan 25 mg Tablet 12.5 mg PO DAILY 0RF rosuvastatin 10 mg Tablet 40 mg PO DAILY Qty: 90 3RF coenzyme Q10 [CoQ-10] 100 mg Capsule 100 mg PO DAILY 0RF PreserVision AREDS-2 250-90-40-1 mg Capsule 1 tab PO BID 0RF levofloxacin 750 mg Tablet 750 mg PO DAILY 0RF posaconazole 100 mg Tablet,Delayed Release (Dr/Ec) 300 mg PO DAILY 0RF [id number] 200-5-0.8-400 mg Capsule 1 cap PO DAILY 0RF vitamin K2 100 mcg Capsule 100 mcg PO DAILY 0RF Rx Instructions: PT TO VERIFY DOSE ondansetron 4 mg Tablet,Disintegrating 4 mg PO Q6H PRN (Reason: Nausea) Qty: 30 0RF Rx Instructions: take one tablets, allow to dissolve under tongue for nausea or vomiting as needed every 6 hours Follow up/Referrals: Lupe Ledesma MD [Primary Care Provider] - Diet/Activity/Treatments Diet: Diet as Tolerated Visit Report/Discharge Packet Instructions: DI for Transient Ischemic Attack Discharge Data Primary Care Provider: Lupe Ledesma Attending Provider: Lupe Ledesma Quality VTE Deep Vein Thrombosis/Pulmonary Embolism Present on Admission: No
[2021-11-01 06:21] LABS: Alanine Aminotransferase 40 IU/L (<50); Albumin 3.3 g/dL (3.5-5.0); Albumin Globulin Ratio 1.3 (1.0-2.8); Alkaline Phosphatase 58 U/L (38-126); Aspartate Aminotransferase 31 IU/L (17-59); BUN Creatinine Ratio 18.2 (6-22); Bilirubin Total 0.9 mg/dL (0.2-1.3); Blood Urea Nitrogen 20 mg/dL (9-20); Calcium 8.2 mg/dL (8.4-10.2); Carbon Dioxide 26 mmol/L (22-32); Chloride 97 mmol/L (98-107); Estimated Glomerular Filt Rate > 60 mL/min (>60); Globulin 2.6 g/dL (1.7-4.1); Glucose 101 mg/dL (80-110); HEMOLYSIS < 15 (0-50); Hematocrit 30.4 % (41-53); Hemoglobin 10.8 g/dL (13.5-17.5); Mean Corpuscular HGB Conc 35.7 % (30-36); Mean Corpuscular Hemoglobin 37.1 PG (26-34); Mean Corpuscular Volume 103.9 fL (80-100); Platelet Count 56 X10^3/uL (150-400); Potassium 4.5 mmol/L (3.4-5.1); Red Blood Cell Count 2.93 X10^6/uL (4.5-5.9); Red Cell Distribution Width 13.8 % (11.6-14.8); Sodium 128 mmol/L (137-145); Total Protein 5.9 g/dL (6.3-8.2)
[2021-11-01 06:31] LABS: Add Manual Diff / Slide Review YES
[2021-11-01 06:34] LABS: White Blood Cell Count 1.2 X10^3/uL (4.5-11.0)
[2021-11-01 06:55] LABS: Neutrophils Absolute Manual 552 /uL (3000-5900); Total Cells Counted 100
[2021-11-01 06:56] LABS: Macrocytosis 1+
[2021-11-01 08:34] VITALS: BP 132/64; PULSE 56; RESP 16; TEMP 37.1; O2SAT 100
[2021-11-01] MEDS: ATORVASTATIN 20 MG TABLET 80 MG PO (08:39)
[2021-11-01] MEDS: ACYCLOVIR 400 MG TABLET 800 MG PO (08:39)
[2021-11-01 08:41] VITALS: BP 132/64; PULSE 56
[2021-11-01] MEDS: LOSARTAN 25 MG TABLET 12.5 MG PO (08:41)
[2021-11-01] MEDS: VIT C/E/ZN/COPPR/LUTEIN/ZEAXAN CAPSULE 1 CAP PO (08:41)
[2021-11-01 08:46] VITALS: BP 119/55; PULSE 59; RESP 18; TEMP 36.6; O2SAT 99
[2021-11-01] MEDS: atenoloL 25 MG TABLET 12.5 MG PO (08:48)
--- NOTE | 2021-11-01 09:17 | OT.IP.EVAL ---
Past Medical History (Last Updated 05/10/20 @ 20:00 by Freya Robins MD) Hx of CABG Hyperlipidemia Hypertension No pertinent past surgical history TIA (transient ischemic attack) Surgical History (Last Updated 05/10/20 @ 20:00 by Freya Robins MD) Hx of CABG No pertinent past surgical history Occupational Therapy Inpatient Evaluation/Re-Eval M1 PT/OT-IP Prior Functional Status Start: 11/01/21 10:33 Freq: NEEDED Status: Discharge Protocol: Document 11/01/21 09:17 [facility] (Rec: 11/01/21 10:49 [facility] [id number]) Medical Review Prior Functional Status Communication Independent, occasional word finding, pt's likes to speak for him at times. Mobility and Gait Independent with no devices. Pt takes their dog on walks. Activities of Daily Living and IADL's Completely independent with ADL's ,IADL's ,drives but no longer does yard work. Prior Functional Level (Other details) Pt just recently diagnosed with Leukemia and has just started chemo. Social History Household Members spouse Living Arrangements House Number of Floors (Floors) One Floor Number of Stairs To Enter/Railing? no steps from the front and 3 steps with right rail from the garage. Home Environment High Toilet,Walk in Shower Home Equipment Shower Seat without Backrest, Hand Held Shower,Beater Room Helper,Grab Bars In Shower M2 OT-IP Current Condition Start: 11/01/21 10:33 Freq: Status: Discharge Protocol: Document 11/01/21 09:17 [facility] (Rec: 11/01/21 10:49 [facility] [id number]) Occupational Therapy Current Condition Current Condition Evaluation Date 11/01/21 Treatment Diagnosis TIA Diagnosis Onset Date 10/31/21 M3 OT- IP Subjective and Pain Start: 11/01/21 10:33 Freq: Status: Discharge Protocol: Document 11/01/21 09:17 [facility] (Rec: 11/01/21 10:49 [facility] [id number]) OT- Subjective Occupational Therapy Visit Type Type Initial Evaluation Visit Start Time 09:17 Visit Stop Time 09:45 Total Visit Minutes 28 Occupational Therapy Visit Comments Patient Comments Pt agreed to get up for OT eval. Patient/Caregiver Goals TO go home. OT Pain Assessment Pain When Pain Assessed At Rest Pain Present Pain Present Pain Reported M4 OT- IP ADL's Start: 11/01/21 10:33 Freq: Status: Discharge Protocol: Document 11/01/21 09:17 [facility] (Rec: 11/01/21 10:49 [facility] [id number]) OT HYP-Mdht-Pfmemad Comments OT Self-Feeding Comments Not at meal time. OT ADL-Grooming General Evaluation Grooming Ability Independent OT ADL-Oral Care General Eval Oral Care Ability Independent OT ADL-Dressing General Eval Upper Body Dressing Ability Independent Lower Body Dressing Ability Independent Comments OT Dressing Comments Pt able to independently stand and put his jeans on and occasional use of hand for balance on the bench seating with good safety. OT ADL-Toileting General Evaluation Toileting Ability Independent OT ADL-Bathing Comments OT Bathing Comments Not performed. M5 OT- IP IADL's Start: 11/01/21 10:33 Freq: Status: Discharge Protocol: Document 11/01/21 09:17 [facility] (Rec: 11/01/21 10:49 [facility] [id number]) OT-Instrumental Activities of Daily Living Home Safety Awareness Awareness of Need for Assistance at Home Good Awareness Ability to Problem Solve Emergency Able to Problem Solve Situations Home Safety Comments Pt has a supportive that can assist with his needs for medications,finances, IADL's, but not able to physically lift pt due to having bad knees. Meal Preparation Meal Preparation Caregiver Provides Assist Machine Bander And Cellophaner Helper Machine Bander And Cellophaner Helper Caregiver Provides Assist Driving Driving Concerns Identified Regarding Safety M6 OT- IP Functional Cognition Start: 11/01/21 10:33 Freq: Status: Discharge Protocol: Document 11/01/21 09:17 [facility] (Rec: 11/01/21 10:49 [facility] [id number]) Cognitive Factors Limiting Selfcare Function Cognitive Ability Level of Alertness Alert Patient Orientation Name,Age,Birthday,Month,Date, Year,Day of Week,Place, Situation Attention Span Ability Capable of Focused Attention, Capable of Sustained Attention Ability to Follow Commands Able to Follow One Step Commands Memory Description Working Impaired Problem Solving Ability Needs Assist to Identify Solutions Executive Function Ability Unable to Filter Distractions, Unable to Organize Plans, Unable to Remember Details Cognitive Comments Cognitive Assessment Comments Pt scored 345 seconds on [place] Making Part B and also needing MOD vc to complete. Pt score implies sever impairment for task switching, visual attention, speed of processing, mental flexibility, and executive functioning. It was strongly suggested pt not drive at this time. Pt's tends to talk pt through tasks instead of him trying to figure things out at by himself. OT- Vision and Hearing OT- Hearing Assessment OT- Hearing Assessment Hearing Impaired,Use of Hearing Aids OT- Vision Assessment Visual Acuity Glasses All The Time Occular Pursuits WFL Visual Convergence WFL Visual Villavicencio WFL M7 OT- IP Mobility and Balance Start: 11/01/21 10:33 Freq: Status: Discharge Protocol: Document 11/01/21 09:17 [facility] (Rec: 11/01/21 10:49 [facility] [id number]) OT- Bed Mobility Assessment Rolling Type of Rolling Roll to Right Level of Assistance Independent Supine to Sit Supine to Sit Assist Independent Sit to Supine Sit to Supine Assist Independent OT-Transfer Assessment Sit to and From Stand Sit to and from Stand Independent Transfers Transfer Ability Standby Assistance Technique Transfer Destination Bed Devices Transfer Assistive Devices None Comments Mobility Comments Distant SBA for level surfaces in the room without a device. OT- Balance Assessment Sitting Balance and Reactions Static Sitting Balance Ability Normal Dynamic Sitting Balance Ability Normal Standing Balance and Reactions Static Standing Balance Ability Normal Dynamic Standing Balance Ability Good M8 OT- IP Objective Assessments Start: 11/01/21 10:33 Freq: Status: Discharge Protocol: Document 11/01/21 09:17 [facility] (Rec: 11/01/21 10:49 [facility] [id number]) OT Gross Range of Motion Upper Extremity Range of Motion Assessment Within Functional Limits OT Strength Upper Extremity Strength Assessment Within Functional Limits OT-Muscle Tone Assessment Muscle Tone WNL Yes M9 OT- IP Assessment and Plan Start: 11/01/21 10:33 Freq: Status: Discharge Protocol: Document 11/01/21 09:17 [facility] (Rec: 11/01/21 10:49 [facility] [id number]) OT Summary Assessment and Plan Potential Rehabilitation Potential Good Analytic Complexity at Evaluation Moderate Summary OT Impairments Functional Cognition,Bathing Progress Towards Goals Progressing Toward Goals Assessment Summary Pt main barriers are steps, decreased in executive functioning as scored poorly on [place] Making Part B, his time of 345 seconds implies severe impairments for task switching, speed of processing , mental flexibility, visual attention, and executive functioning. Pt also has started chemo which may also be affecting his cognition. Pt intact for answers to home safety situations. Pt looking to go home today. Goals Shower Transfer Goal Independent Days to Meet Goals 1 Frequency of Treatment Frequency Of Treatment Once a Day Treatment Plan OT Treatment Plan Functional Cognition Training, Functional Mobility,Patient/ Family Education,Discharge Planning Other Treatment Recommendations and Next Redo [place] Making B if still Treatment Focus here. Discharge Recommendations OT Discharge Recommendations Home with Assistance Transportation Needs at Discharge Private Vehicle
--- NOTE | 2021-11-01 09:19 | ST.IPSCREEN ---
Pt was seated upright in bed with at bedside when FILLING AND PACKING SUPERVISOR arrived. He was alert and oriented x3. Facial features were symmetrical at rest and in motion and speech was clear and 100% intelligible. Pt reported he has been feeling hoarse and has an ENT appointment for a videoflouroscopy. Pt added the hoarseness has improved along with his other symptoms since TIA. Pt and his report he is back to baseline. Pt swallowed thin water through straw cup with no overt signs or symptoms of aspiration. Speech therapy is not recommended at this time as pt is WNL.
--- NOTE | 2021-11-01 11:15 | PT.IIE ---
Medical History (Last Updated 05/10/20 @ 20:00 by Freya Robins MD) Hyperlipidemia Hypertension TIA (transient ischemic attack) Physical Therapy Inpatient Evaluation/Re-Eval M1 PT/OT-IP Prior Functional Status Start: 11/01/21 10:33 Freq: NEEDED Status: Discharge Protocol: Document 11/01/21 09:17 [facility] (Rec: 11/01/21 10:49 [facility] [id number]) Medical Review Prior Functional Status Communication Independent, occasional word finding, pt's likes to speak for him at times. Mobility and Gait Independent wit no devices. Pt takes their dog on walks. Activities of Daily Living and IADL's Completely independent with ADL's ,IADL's ,drives but no longer does yard work. Prior Functional Level (Other details) Pt jusr recently diagnoses with Leukemia and has just started chemo. Social History Household Members spouse Living Arrangements House Number of Floors (Floors) One Floor Number of Stairs To Enter/Railing? no steps from the front and 3 steps with right rail from the garage. Home Environment High Toilet,Walk in Shower Home Equipment Shower Seat without Backrest, Hand Held Shower,Dictating Machine Mechanic,Grab Bars In Shower M1 PT/OT-IP Prior Functional Status Start: 11/01/21 13:06 Freq: NEEDED Status: Active Protocol: Document 11/01/21 11:15 [facility] (Rec: 11/01/21 13:16 [facility] [id number]) Medical Review Prior Functional Status Medical History Reviewed Yes Communication able to make needs known but HOB Mobility and Gait pt stated that he is independent with all mobilities and ambulation without AD Social History Household Members spouse Living Arrangements House Number of Floors (Floors) One Floor Number of Stairs To Enter/Railing? not steps to enter from the front 3 steps with R rail ascending from the back Home Environment High Toilet,Walk in Shower Home Equipment Front Wheel Walker,Straight Cane,Shower Seat without Backrest,Hand Held Shower, Dictating Machine Mechanic,Grab Bars In Shower Employment Status Retired M2 PT-IP Current Condition Start: 11/01/21 13:06 Freq: NEEDED Status: Active Protocol: Document 11/01/21 11:15 [facility] (Rec: 11/01/21 13:16 AB [id number]) Physical Therapy Current Condition Current Condition Evaluation Date 11/01/21 Treatment Diagnosis TIA; difficulty in walking Onset Date 10/31/21 M3 PT-IP Subjective Start: 11/01/21 13:06 Freq: NEEDED Status: Active Protocol: Document 11/01/21 11:15 [facility] (Rec: 11/01/21 13:16 [facility] [id number]) Subjective Physical Therapy Visit Type Type Initial Evaluation Visit Start Time 11:15 Visit Stop Time 11:40 Total Visit Minutes 25 Number of RESEARCH EXECUTIVE Visits 0 Physical Therapy Visit Comments Patient Comments agreeable to do PT Therapy Pain Assessment Pain Present Pain Present Denied Pain M4 PT-IP Mobility and Gait Start: 11/01/21 13:06 Freq: NEEDED Status: Active Protocol: Document 11/01/21 11:15 [facility] (Rec: 11/01/21 13:16 [facility] [id number]) PT-Bed Mobility Assessment Supine to Sit Supine to Sit Independent Sit to Supine Sit to Supine Independent PT-Transfer Assessment Sit to and From Stand Sit to and from Stand Independent Equipment Transfer Assistive Device None,Gait Belt Orthotic/Prosthetic Devices or Brace: No Comments Mobility Comments completed supine to sit independent. able to sit on EOB SBA. ambulated in room without AD SBA. pt agreed to ambulate in the hallway and wants to do stairs. ambulated ~ 250 ft without AD SBA. presents with gait deviation with increase L side trunk deviation with increase RLE ER and midline crossing due to increase L side deviation, therefore unable to walk a straight path. (+) LOB but with recovery. pt completed up/down stairs using R rail ascending SBA. ambulated back to his room without AD SBA. cued to correct RLE midline crossing. educated pt and spouse regarding steadiness with ambulation and safety. pt and spouse understood. pt and spouse without other concerns. Gait Assessment Gait Gait Assistance Required: Standby Assistance Distance (Feet) 250 Able to Maintain Weight Bearing Status Yes During Gait Assistive Devices Assistive Device None,Gait Belt Orthotic/Prosthetic Devices or Brace: No Gait Deviations General Gait Pattern Decreased Stride Length, Decreased Feet Clearance, Narrow Based Gait Factors Limiting Gait Function Factors Limiting Gait Function Decreased Activity Tolerance, Decreased Sensation,Limited Range of Motion,Pain,Poor Balance,Poor Safety Awareness Stair Climbing Assessment Evaluation Level of Assist On Stairs Standby Assistance Devices Stair Climbing Assistive Devices Right Railing Technique/Endurance Stair Climbing Direction Ascend and Descend Stair Climbing Technique Step Over Step Number of Steps Climbed 3 Query Text: Stair Climbing Set # Repetitions (reps) 1 PT-Balance Assessment Sitting Balance and Reactions Static Sitting Balance Ability Good Dynamic Sitting Balance Ability Good Standing Balance and Reactions Static Standing Balance Ability Good Dynamic Standing Balance Ability Fair Device Used without AD M5 PT-IP Objective Assessments Start: 11/01/21 13:06 Freq: NEEDED Status: Active Protocol: Document 11/01/21 11:15 [facility] (Rec: 11/01/21 13:16 AB [id number]) Orientation Orientation/Cognition Level of Alertness Alert Orientation Name,Place,Situation Language Function Ability No Deficits Noted Safety Awareness Decreased Safety Awareness Memory Description No Deficits Noted Gross Range of Motion Lower Extremity ROM Assessment Within Functional Limits Strength Lower Extremity Strength Assessment Within Functional Limits Coordination Assessment Gross Coordination Gross Coordination WNL Sensation Assessment Sensation Gross Sensation WNL Muscle Tone Muscle Tone WNL Yes M6 PT-IP Treatment Start: 11/01/21 13:06 Freq: NEEDED Status: Active Protocol: Document 11/01/21 11:15 [facility] ([facility]01[facility]21 13:[email or web address] Therapy Treatment Education Education Provided Safety M7 PT-IP Assessment and Plan Start: 11/01/21 13:06 Freq: NEEDED Status: Active Protocol: Document 11/01/21 11:15 [facility] (Rec: 11/01/21 13:16 AB [id number]) PT Summary Assessment and Plan Potential Rehabilitation Potential Good Status of Condition at Evaluation Stable Summary Impairments Pain,ROM,Strength,Balance, Coordination,Sensation,Tone, Cognition,Bed Mobility, Transfers,Gait,Activity Tolerance Assessment Summary pt requiring SBA with mobility without AD. Has (+) LOB during ambulation but with recovery. pt plans to go home with spouse to assist him as needed. Goals Bed Mobility Goal Independent Transfer Goal Independent Gait Goal Independent Gait Distance 300 Other Goals up/down 3 steps R rail ascending mod I Days to Meet Goals 3 Frequency of Treatment Frequency Of Treatment Once a Day Treatment Plan Physical Therapy Treatment Plan Bed Mobility Training,Transfer Training,Gait Training, Therapeutic Exercise,Balance Retraining,Discharge Planning, Hot or Cold Pack,Neuromuscular Re-ed,Coordination Retraining Recommendations To Nursing Amount of Assist Needed Standby Assistance Discharge Recommendations PT Discharge Recommendations Home with Assistance Transportation Needs at Discharge Private Vehicle
--- NOTE | 2021-11-01 12:04 | PC.NURSE ---
Pt dressed and discharged home with all belongings via pov with spouse. IV removed and no tele. Discussed discharge instructions including medications to continue and follow up as directed. Provided education about TIA and stroke signs and symptoms. Pt transported out via wheel chair by RN.
--- NOTE | 2021-11-01 15:03 | CM.DANOTE ---
Patient is an 81 yo male who was admitted on 10/31/21 for Slurred Speech. Pt has [facility] and [facility] for insurance and his PCP is Dr. Lupe Ledesma. EMR was reviewed. Per , pt with recent dx of leukemia and just started on chemo through Oncologist Dr. Schneider at [facility]. Pt admitted to r/o TIA vs CVA. Pt was last admitted for similar in May 2020 for TIA and was able to d/c home with spouse and no needs. Per PT/OT/ST, recommending safe d/c home with spouse assist via POV. Pt is active and independent at baseline, does not use DME and still drives but they have a office clin asst hired to do yard work. Pt denies any hx of HH or SNF and DPOA is spouse Maddison. Per MD, pt is medically stable to d/c home today with outpt follow up and ongoing chemo with Oncologist and SW witnessed pt ambulating the halls with PT to do stairs SBA and was unable to complete bedside assessment with all of pt's evals and tests and no barriers identified to discharge. Per RN, pt and spouse given d/c instructions and no concerns and they were thankful to be able to d/c home today. Plan: Patient discharged home via spouse POV today and ongoing outpt f/u and no SW needs at this time. WYATT Tang Discharge Planning/Care Management CM Discharge Assessment Start: 11/01/21 15:01 Freq: Status: Active Protocol: Document 11/01/21 15:01 (Rec: 11/01/21 15:02 [id number]) Discharge Planning Assessment Assigned Injection Molding Machine Setter WYATT Delaney DPOA/Assigned Designee Name justin Washburn Advance Directives? Yes Advance Directives on File Yes History Provided By Patient,Significant Other, Medical Record Has Patient been admitted in last 30 No days? Comment Last admission May 2020 for TIA Prior Living Arrangements House Household Members spouse Type of transporation used prior to Drives own vehicle admit Independent with ADL's Yes Is patient alert and oriented? Yes Caregiver for Another No Patient/Family Preference OP PT Therapy Barriers to Discharge No Discharge Plan Home Transportation Arrangement Family to provide transport. Referrals Initiated None needed Whiteboard Updated in Patient Room with Yes name and ext. # of Injection Molding Machine Setter Review Status In Process Please Provide Date Initial DC 11/01/21 Assessment Was Performed Next Review Type Continued Stay Review
== END 2021-11-01 11:54 | disposition home or self-care (01) ==
LOC: ED 11:04 → AC 11:22
PROVIDERS: Admitting Provider Student in an Organized Health Care Education/Training Program; Emergency Provider Emergency Medicine; Family Provider Student in an Organized Health Care Education/Training Program; PCP Student in an Organized Health Care Education/Training Program; Referring Provider Internal Medicine Medical Oncology; Visit Provider Student in an Organized Health Care Education/Training Program
DX: Z86.73 Personal history of transient ischemic attack (TIA), and cerebral infarction without residual deficits (principal); R29.702 NIHSS score 2; C92.00 Acute myeloblastic leukemia, not having achieved remission; D61.818 Other pancytopenia; E87.1 Hypo-osmolality and hyponatremia; E88.81 Metabolic syndrome and other insulin resistance; E78.5 Hyperlipidemia, unspecified; I10 Essential (primary) hypertension; I25.10 Atherosclerotic heart disease of native coronary artery without angina pectoris; Z79.01 Long term (current) use of anticoagulants; Z95.1 Presence of aortocoronary bypass graft; Z20.822 Contact with and (suspected) exposure to COVID-19
CPT/HCPCS: 36415; 70450; 70496; 70498; 70551; 80053; 81003; 81015; 82550; 82553; 82962; 84484; 85007; 85025; 85610; 85730; 87635; 93005; 93010; 93306; 97161; 97166; 99284; 99285; C9803; G0378

== ENCOUNTER → 2022-01-29 13:01 | Outpatient (CLI) | payer MEDICARE, OTHER, SELFPAY ==
[2021-10-31 12:59] VITALS: BMI 22.2
--- NOTE | 2022-01-29 | DI.RAD.S_ITS ---
PROCEDURE: XR CHEST 2V INDICATIONS: Acute myelomonocytic leukemia, not having achieved remission TECHNIQUE: 2 views of the chest were acquired. COMPARISON: None. FINDINGS: Surgical changes and devices: Changes of median sternotomy for CABG. Lungs and pleura: Lungs are clear. No pleural effusions or pneumothorax. Mediastinum: Mediastinal contours are normal. Heart size is normal. Bones and chest wall: No suspicious bony abnormalities. Soft tissues appear unremarkable. IMPRESSION: No acute cardiopulmonary process demonstrated radiographically. Dictated by: Bear Harrison M.D. on 01/29/2022 at 14:05 Approved by: Bear Harrison M.D. on 01/29/2022 at 14:05
== END ==
PROVIDERS: Family Provider Student in an Organized Health Care Education/Training Program; PCP Family Medicine; Referring Provider Internal Medicine; Visit Provider Internal Medicine
DX: C92.50 Acute myelomonocytic leukemia, not having achieved remission (principal)
CPT/HCPCS: 71046

== ENCOUNTER → 2022-02-26 08:05 | Outpatient (CLI) | payer MEDICARE, OTHER, SELFPAY ==
[2021-10-31 12:59] VITALS: BMI 22.2
--- NOTE | 2022-02-26 16:48 | DIET.CONS ---
Dietary Consultation Note Assessment: 81y M attending RD consultation for help with oncology related malnutrition and hyponatremia. Pts visits will be covered by the ONC medical relief fund. 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 He is on Vidaza SQ x 7 d /cycle getting [place]. [place] [facility] [place] being followed at [facility] in [place], just finished fourth cycle. Pt with hyponatremia that manifests over the first two weeks of every chemo cycle. This has been reproduced each of 4 cycles with one resulting in hospitalization. Since that time, pt is pushing more PO electrolyte fluids and V8 juice to support sodium levels but desires more nuanced advice. Wt: 66.9kg (-4.1% in 1mo, -5.8% in 4mo, non-severe high risk) BMI: 22.2 UBW: 71kg Usual Day B: Cold cereal ([employer] granola), dried fruit and nuts, whole milk, coffee c half and half frequent urination, so drinks water after. L: Subway once per week, turkey and cheese sandwich on whole grain bread, seasonal fruit, V8 or Gatorlyte, Julee potato chips Sn: tortilla chips with hummus, artichoke parmesan dips. Dinners: steelhead trout vs. stuffed Thompson salmon (bid) with green salad, veg and starch (rice or hashed browns, corn, twice baked potato). Desserts: fruit pie with ice cream, chocolate brownies, cookie c ice cream Nutrition Diagnosis: hyponatremia r/t inadequate oral intake and chemo side effect aeb pt with sodium in low 130s for first two weeks after chemo cycle, normalizing on weeks 3+4, pt with no pmhx hyponatremia prior to initiation of oncology tx, pt with 5.8% non-severe weight loss in 4mo r/t low appetite with onc tx. Interventions: 1. Recc pt limit PO liquids to 1.6L/d (25mL/kg) during first 2w chemotherapy with electrolyte packet in all plain water. Recc pt increase intake to 2L/d (30mL/kg) on weeks 3 +4 without needing electrolyte packet. 2. Recc pt continue consuming V8, gatorlyte, potato chips as desired. 3. Recc switch to whole milk, preferential intake of protein, starch and cooked veggies over salad if poor appetite, and initiation of ONS once daily to support weight status. Monitoring/Evaluations: f/u phone call scheduled in 3w to assess nutrition intervention effectiveness and any modifications that may be needed. Electronically Signed by: Jailene Centeno 02/26/22 16:48 Clinical Dietitian [address] [id number]
== END ==
PROVIDERS: Family Provider Student in an Organized Health Care Education/Training Program; PCP Family Medicine; Referring Provider Internal Medicine Medical Oncology; Visit Provider Internal Medicine Medical Oncology
DX: E46 Unspecified protein-calorie malnutrition (principal); E87.1 Hypo-osmolality and hyponatremia; C92.00 Acute myeloblastic leukemia, not having achieved remission; Z71.3 Dietary counseling and surveillance; Z68.22 Body mass index [BMI] 22.0-22.9, adult
CPT/HCPCS: 97802

== ENCOUNTER 2022-04-27 20:41 | Emergency (ER) | payer MEDICARE, OTHER, SELFPAY ==
[2021-10-31 12:59] VITALS: BMI 22.2
[2022-04-27] VITALS (10 sets, daily range): BP systolic 132–164; BP diastolic 62–72; PULSE 60–78; RESP 16; TEMP 36.8–37.1; O2SAT 95–99; BMI 21.4
--- NOTE | 2022-04-27 21:04 | DI.RAD.S_ITS ---
PROCEDURE: XR CHEST 1V INDICATIONS: suspected sepsis TECHNIQUE: One view of the chest was acquired. COMPARISON: [facility], CR, XR CHEST 2V, 01/29/2022, 13:16. FINDINGS: Surgical changes and devices: There is a right upper extremity PICC line with the tip in the region of the cavoatrial junction. Postsurgical changes are redemonstrated in the mediastinum. Lungs and pleura: Lungs are clear. There is hyperinflation of the lungs with mild flattening of the left hemidiaphragm suggestive of COPD. No pleural effusions or pneumothorax. Mediastinum: Mediastinal contours appear normal. Heart size is normal. Bones and chest wall: No suspicious bony lesions. Overlying soft tissues appear unremarkable. IMPRESSION: 1. No acute cardiopulmonary disease. Dictated by: Truong Martínez M.D. on 04/27/2022 at 23:45 Approved by: Truong Martínez M.D. on 04/27/2022 at 23:46
--- NOTE | 2022-04-27 21:05 | PC.NURSE ---
Pt arrives with CHELSY PICC in place. 1 set blood cultures and labs drawn. patent.
--- NOTE | 2022-04-27 21:17 | ED.FEVER ---
HPI - Fever General Chief Complaint: Fever Stated Complaint: Fever, Weakness Time Seen by Provider: 04/27/22 21:09 History of Present Illness HPI Narrative: Patient here with . Sent here by the Cancer Center. Patient falls [facility] with [facility], also followed by Dr. Schneider locally oncology. Patient has AML. Had 2nd attempt of chemotherapy April 02. Shortly after had positive blood culture for strep and was treated with antibiotics. Follow up blood work middle of this month negative for bacteremia. Has been doing well since then. However today had a fever of 101. Following 2 or 3 days of feeling general malaise. No vomiting or diarrhea no cough. No sore throat. No known sick contacts. Date of visit: 03/06/22 Chief Complaint: f/u AML Interval history: Ferny is here for follow-up. 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 Bone marrow biopsy shows hypercellular marrow with 15-20% CD 34 positive cells in the core biopsy and 15-20% blasts in the bone marrow aspirate. Cytogenetics show 46 xy, fish results show normal AML panel. He is on Vidaza SQ x 7 d /cycle. Feeling better this week. He reports more mobility and enrgy over the last few days as well. Nofever, chills or cough. He did speak with Dr Gonzalez last week about options. Related Data Home Medications Medication Instructions Recorded Confirmed atenolol 25 mg tablet 12.5 mg PO BID 05/10/20 03/06/22 losartan 25 mg tablet 12.5 mg PO DAILY 05/10/20 03/06/22 coenzyme Q10 100 mg capsule 100 mg PO DAILY 09/27/21 03/06/22 (CoQ-10) vit C 250 mg-vit E 90 mg-zinc 40 1 tab PO BID 09/27/21 03/06/22 mg-copper 1 [id number] capsule (PreserVision AREDS-2) levofloxacin 750 mg tablet 750 mg PO DAILY 10/17/21 03/06/22 posaconazole 100 mg tablet,delayed 300 mg PO DAILY 10/17/21 03/06/22 release ubiquinol 200 mg-B12 5 mg-folic 1 cap PO DAILY 10/17/21 03/06/22 acid 0.8 mg-resveratrol 400 mg capsule acyclovir 800 mg tablet 800 mg PO BID 10/31/21 03/06/22 aspirin 81 mg tablet 81 mg PO DAILY 02/07/22 03/06/22 Previous Rx's Medication Instructions Recorded rosuvastatin 10 mg tablet 40 mg PO DAILY #90 tabs 05/11/20 ondansetron 4 mg disintegrating 4 mg PO Q6H PRN Nausea #30 tabs 10/18/21 tablet Allergies Allergy/AdvReac Type Severity Reaction Status Date / Time No Known Drug Allergies Allergy Verified 01/22/22 08:54 Review of Systems Review of Systems Narrative: GENERAL: Positive chills, fatigue, malaise, fever, sweats. HEENT: Denies sinus pain, ear pain, sore throat RESPIRATORY: Denies dyspnea, cough CARDIOVASCULAR: Denies chest pain, palpitations GASTROINTESTINAL: Denies nausea, vomiting, abdominal pain : Denies dysuria, frequency, hematuria MUSCULOSKELETAL: denies muscle or bony pain SKIN: Denies rash, skin lesions NEUROLOGIC: Denies weakness, numbness ROS Unobtainable: All systems reviewed & are unremarkable except as noted in HPI and below Patient History Medical History Hyperlipidemia Hypertension TIA (transient ischemic attack) Surgical History Hx of CABG No pertinent past surgical history Social History household members: spouse Smoking Status: Never smoker Smoking Status: Never smoker alcohol intake frequency: a few times a week Substance Use Type: does not use Exam Narrative Exam Narrative: GENERAL: in no distress, not toxic not dyspneic HEAD: Normocephalic. EYES: Pupils equal round No scleral icterus. ENT: Mucous membranes moist. NECK: Trachea midline. CARDIOVASCULAR: Regular rate and rhythm without murmurs RESPIRATORY: Clear to auscultation. Breath sounds equal bilaterally. No wheezes, rales, or rhonchi. GASTROINTESTINAL: Abdomen soft, non-tender EXTREMITIES: No gross deformities. BACK: No flank tenderness. NEURO: AOx4. SKIN: Warm and dry PSYCH: Not anxious, is cooperative Initial Vital Signs Initial Vital Signs: Vital Signs Pulse Rate 65 04/27/22 20:59 Pulse Oximetry 96 04/27/22 20:59 Course Course Course Narrative: No new issues during course of stay Orders Ordered: ED Orders 04/27/22 20:58 Complete Blood Count AUTO DIFF Stat Comprehensive Metabolic Panel Stat Lactate (Lactic Acid) Stat Lipase Stat Partial Thromboplastin Time Stat Procalcitonin Stat Prothrombin Time INR Stat 04/27/22 21:04 XR chest 1V Stat EKG-12 Lead Stat RT Consult Eval and Treat NOW 04/27/22 21:05 Blood Culture Stat 04/27/22 21:18 Respiratory Panel (Film Array) Stat Discontinued Medications Sodium Chloride (Normal Saline 0.9%) 1,000 mls @ 1,000 mls/hr IV BOLUS ONE Stop: 04/27/22 22:03 Last Infusion: 04/27/22 22:34 Dose: 0 mls/hr Documented By: Admin: 04/27/22 21:25 Dose: 1,000 mls/hr Documented By: CTS Reevaluation(s) Reevaluation #1: Reviewed results with patient and . They are reassuring at this time. No source of fever on studies tonight. They do agree no antibiotics indicated at this time. Blood cultures are pending and we will call them if abnormal. Return precautions reviewed with them. They will continue ibuprofen or Tylenol for fever control. Time: 23:53 Vital Signs Vital signs: Vital Signs - 8 hr 04/27/22 21:01 04/27/22 20:59 04/27/22 21:00 Temperature 98.8 F Pulse Rate 67 65 65 Respiratory Rate 16 Blood Pressure 138/63 Pulse Oximetry 97 96 96 Oxygen Delivery Method Room Air 04/27/22 22:34 04/27/22 21:30 04/27/22 21:52 Temperature 98.2 F Pulse Rate 65 61 Respiratory Rate Blood Pressure Pulse Oximetry 97 95 Oxygen Delivery Method 04/27/22 21:52 04/27/22 22:00 04/27/22 22:00 Temperature Pulse Rate 61 Respiratory Rate Blood Pressure 134/63 141/66 H Pulse Oximetry 96 Oxygen Delivery Method 04/27/22 22:30 04/27/22 22:30 04/27/22 23:00 Temperature Pulse Rate 60 Respiratory Rate Blood Pressure 137/62 164/72 H Pulse Oximetry 97 Oxygen Delivery Method 04/27/22 23:00 04/27/22 23:58 Temperature 98.5 F Pulse Rate 60 78 Respiratory Rate 16 Blood Pressure 132/70 Pulse Oximetry 99 98 Oxygen Delivery Method Room Air Room Air MDM - Fever Differential Diagnosis Differential diagnosis: Likely fever of unknown origin, gastroenteritis, community acquired pneumonia, pyelonephritis, viral infection, sepsis, influenza and other (Viral infection) Lab Data Result diagrams: 04/27/22 20:58 04/27/22 20:58 Labs: Lab Results 04/27/22 04/27/22 04/27/22 Range/Units 20:58 20:58 20:58 WBC 5.1 (4.5-11.0) X10^3/uL RBC 4.80 (4.5-5.9) X10^6/uL Hgb 15.6 (13.5-17.5) g/dL Hct 45.8 (41-53) % MCV 95.4 (80-100) fL MCH 32.6 (26-34) PG MCHC 34.1 (30-36) % RDW 20.0 H (11.6-14.8) % Plt Count 230 (150-400) X10^3/uL Neut % (Auto) 74.1 (50-75) % Lymph % (Auto) 9.4 L (25-40) % [place] % (Auto) 15.7 H (3-14) % Eos % (Auto) 0.1 L (2-4) % Baso % (Auto) 0.7 (0-2) % Neut # (Auto) 3800 (5780-1606) /uL Lymph # (Auto) 500 L (9062-6110) /uL [place] # (Auto) 800 (0-900) /uL Eos # (Auto) 0 (0-450) /uL Baso # (Auto) 0 (0-100) /uL PT 13.6 H (10.1-12.7) SECONDS INR 1.2 (0.9-1.3) APTT 32 (26-36) SECONDS Sodium 138 (137-145) mmol/L Potassium 4.2 (3.4-5.1) mmol/L Chloride 103 (98-107) mmol/L Carbon Dioxide 24 (22-32) mmol/L BUN 19 (9-20) mg/dL Creatinine 0.92 (0.66-1.25) mg/dL Estimated GFR > 60 (>60) mL/min BUN/Creatinine Ratio 20.7 (6-22) Glucose 136 H (80-110) mg/dL Lactate (0.7-2.1) mmol/L Calcium 8.6 (8.4-10.2) mg/dL Total Bilirubin 0.5 (0.2-1.3) mg/dL AST 31 (17-59) IU/L ALT 22 (<50) IU/L Alkaline Phosphatase 90 (38-126) U/L Total Protein 6.9 (6.3-8.2) g/dL Albumin 3.8 (3.5-5.0) g/dL Globulin 3.1 (1.7-4.1) g/dL Albumin/Globulin Ratio 1.2 (1.0-2.8) Lipase 35 (23-300) U/L Procalcitonin 0.10 (<0.5) ng/mL Chlamy pneumoniae PCR (Not Detect) Adenovirus (PCR) (Not Detect) B. pertussis DNA (PCR) (Not Detecte) B.parapertussis DNA PCR (Not Detecte) Coronavirus OC43 (PCR) (Not Detect) Coronavirus HKU1 (PCR) (Not Detect) Coronavirus 229E (PCR) (Not Detect) SARS-CoV-2 (PCR) (Not Detecte) Coronavirus NL63 (PCR) (Not Detect) Human Metapneumovir PCR (Not Detect) Influenza Type A (PCR) (Not Detect) Influenza Type B (PCR) (Not Detect) M. pneumoniae (PCR) (Not Detect) Parainfluenza 1 (PCR) (Not Detect) Parainfluenza 2 (PCR) (Not Detect) Parainfluenza 3 (PCR) (Not Detect) Parainfluenza 4 (PCR) (Not Detect) RSV (PCR) (Not Detect) Entero/Rhino (PCR) (Not Detect) 04/27/22 04/27/22 Range/Units 20:58 21:18 WBC (4.5-11.0) X10^3/uL RBC (4.5-5.9) X10^6/uL Hgb (13.5-17.5) g/dL Hct (41-53) % MCV (80-100) fL MCH (26-34) PG MCHC (30-36) % RDW (11.6-14.8) % Plt Count (150-400) X10^3/uL Neut % (Auto) (50-75) % Lymph % (Auto) (25-40) % [place] % (Auto) (3-14) % Eos % (Auto) (2-4) % Baso % (Auto) (0-2) % Neut # (Auto) (8970-7818) /uL Lymph # (Auto) (1260-1816) /uL [place] # (Auto) (0-900) /uL Eos # (Auto) (0-450) /uL Baso # (Auto) (0-100) /uL PT (10.1-12.7) SECONDS INR (0.9-1.3) APTT (26-36) SECONDS Sodium (137-145) mmol/L Potassium (3.4-5.1) mmol/L Chloride (98-107) mmol/L Carbon Dioxide (22-32) mmol/L BUN (9-20) mg/dL Creatinine (0.66-1.25) mg/dL Estimated GFR (>60) mL/min BUN/Creatinine Ratio (6-22) Glucose (80-110) mg/dL Lactate 0.9 (0.7-2.1) mmol/L Calcium (8.4-10.2) mg/dL Total Bilirubin (0.2-1.3) mg/dL AST (17-59) IU/L ALT (<50) IU/L Alkaline Phosphatase (38-126) U/L Total Protein (6.3-8.2) g/dL Albumin (3.5-5.0) g/dL Globulin (1.7-4.1) g/dL Albumin/Globulin Ratio (1.0-2.8) Lipase (23-300) U/L Procalcitonin (<0.5) ng/mL Chlamy pneumoniae PCR Not detected (Not Detect) Adenovirus (PCR) Not detected (Not Detect) B. pertussis DNA (PCR) Not detected (Not Detecte) B.parapertussis DNA PCR Not detected (Not Detecte) Coronavirus OC43 (PCR) Not detected (Not Detect) Coronavirus HKU1 (PCR) Not detected (Not Detect) Coronavirus 229E (PCR) Not detected (Not Detect) SARS-CoV-2 (PCR) Not detected (Not Detecte) Coronavirus NL63 (PCR) Not detected (Not Detect) Human Metapneumovir PCR Not detected (Not Detect) Influenza Type A (PCR) Not detected (Not Detect) Influenza Type B (PCR) Not detected (Not Detect) M. pneumoniae (PCR) Not detected (Not Detect) Parainfluenza 1 (PCR) Not detected (Not Detect) Parainfluenza 2 (PCR) Not detected (Not Detect) Parainfluenza 3 (PCR) Not detected (Not Detect) Parainfluenza 4 (PCR) Not detected (Not Detect) RSV (PCR) Not detected (Not Detect) Entero/Rhino (PCR) Not detected (Not Detect) Urine Dip Bedside Urine Glucose Negative Bedside Urine Bilirubin - Negative Bedside Urine Ketone - Negative Urine Specific [place] 1.015 Bedside Urine Occult Blood - Negative Bedside Urine pH 6.0 Bedside Urine Protein - Negative Bedside Urine Urobilinogen - Negative Bedside Urine Nitrite - Negative Bedside Urine Leukocytes - Negative Esterase Imaging Data Chest x-ray: Radiologist's Impression: [address] [address] XRay Report Signed Patient: Ferny Collins MR#: [id number] : 1940 Acct:[id number] Age/Sex: 81 / M Date of Service: 04/27/22 Loc: Accession Number: [id number] ?? Procedure: XR chest 1V Ordering Provider: Juan David Fernandes MD PROCEDURE:? XR CHEST 1V ? INDICATIONS:? suspected sepsis ? TECHNIQUE:? One view of the chest was acquired.? ? COMPARISON:? [facility], , XR CHEST 2V, 01/29/2022, 13:16. ? FINDINGS:? ? Surgical changes and devices:? There is a right upper extremity PICC line with the tip in the region of the cavoatrial junction.? Postsurgical changes are redemonstrated in the mediastinum. ? Lungs and pleura:? Lungs are clear. There is hyperinflation of the lungs with mild flattening of the left hemidiaphragm suggestive of COPD. ? No pleural effusions or pneumothorax.? ? Mediastinum:? Mediastinal contours appear normal.? Heart size is normal.? ? Bones and chest wall:? No suspicious bony lesions.? Overlying soft tissues appear unremarkable.? ? IMPRESSION:? ? 1. No acute cardiopulmonary disease.? ? ? Dictated by: Truong Martínez M.D. on 04/27/2022 at 23:45 ? ? Approved by: Truong Martínez M.D. on 04/27/2022 at 23:46 ? ECG Data Interpretation: Sinus bradycardia rate 59 otherwise normal EKG MDM Narrative Medical decision making narrative: Appropriate for discharge home. Exam and laboratory studies and imaging are reassuring. No antibiotics indicated. No source of fever seen at this time. We will call them if abnormal blood culture results. They do agree with treatment plan. Return precautions reviewed with them. They desire discharge home. Discharge Plan Departure Patient Disposition: Home Clinical Impression: Fever of unknown origin Instructions: DI for Fever (Symptom) -- Adult Activity Restrictions/Additional Instructions: Please see your oncology team next week for re-evaluation. Return if worse if any questions or concerns. Blood culture results are pending. We will call you if they are abnormal. At this time no antibiotics indicated. No source of the fever identified. Please do double check your thermometers at home for accuracy. Prescriptions: No Action acyclovir 800 mg tablet 800 mg PO BID Label Comments: take 1 tablet by mouth twice a day atenolol 25 mg tablet 12.5 mg PO BID Label Comments: take 1/2 tablet by mouth once daily losartan 25 mg Tablet 12.5 mg PO DAILY rosuvastatin 10 mg Tablet 40 mg PO DAILY Qty: 90 3RF coenzyme Q10 [CoQ-10] 100 mg Capsule 100 mg PO DAILY PreserVision AREDS-2 250-90-40-1 mg Capsule 1 tab PO BID levofloxacin 750 mg Tablet 750 mg PO DAILY posaconazole 100 mg Tablet,Delayed Release (Dr/Ec) 300 mg PO DAILY [id number] 200-5-0.8-400 mg Capsule 1 cap PO DAILY ondansetron 4 mg Tablet,Disintegrating 4 mg PO Q6H PRN (Reason: Nausea) Qty: 30 0RF Rx Instructions: take one tablets, allow to dissolve under tongue for nausea or vomiting as needed every 6 hours aspirin 81 mg Tablet 81 mg PO DAILY Referrals: Liya Garcia MD [Primary Care Provider] - Visit Report Forms: Patient Portal/API
[2022-04-27 21:18] LABS: Add Manual Diff / Slide Review NO; Basophils Absolute Auto 0 /uL (0-100); Basophils Percent Auto 0.7 % (0-2); Eosinophils Absolute Auto 0 /uL (0-450); Eosinophils Percent Auto 0.1 % (2-4); Hematocrit 45.8 % (41-53); Hemoglobin 15.6 g/dL (13.5-17.5); Lymphocytes Absolute Auto 500 /uL (1100-4500); Lymphocytes Percent Auto 9.4 % (25-40); Mean Corpuscular HGB Conc 34.1 % (30-36); Mean Corpuscular Hemoglobin 32.6 PG (26-34); Mean Corpuscular Volume 95.4 fL (80-100); Monocytes Absolute Auto 800 /uL (0-900); Monocytes Percent Auto 15.7 % (3-14); Neutrophils Absolute Auto 3800 /uL (1500-7000); Neutrophils Percent Auto 74.1 % (50-75); Platelet Count 230 X10^3/uL (150-400); White Blood Cell Count 5.1 X10^3/uL (4.5-11.0)
[2022-04-27 21:24] LABS: Alanine Aminotransferase 22 IU/L (<50); Albumin 3.8 g/dL (3.5-5.0); Albumin Globulin Ratio 1.2 (1.0-2.8); Alkaline Phosphatase 90 U/L (38-126); Aspartate Aminotransferase 31 IU/L (17-59); BUN Creatinine Ratio 20.7 (6-22); Bilirubin Total 0.5 mg/dL (0.2-1.3); Blood Urea Nitrogen 19 mg/dL (9-20); Calcium 8.6 mg/dL (8.4-10.2); Carbon Dioxide 24 mmol/L (22-32); Chloride 103 mmol/L (98-107); Estimated Glomerular Filt Rate > 60 mL/min (>60); Globulin 3.1 g/dL (1.7-4.1); Glucose 136 mg/dL (80-110); HEMOLYSIS 34 (0-50); Lactate (Lactic Acid) 0.9 mmol/L (0.7-2.1); Lipase 35 U/L (23-300); Potassium 4.2 mmol/L (3.4-5.1); Sodium 138 mmol/L (137-145); Total Protein 6.9 g/dL (6.3-8.2)
[2022-04-27] MEDS: SODIUM CHLORIDE 0.9% 1,000 ML 1000 ML IV (21:25)
[2022-04-27 21:57] LABS: INR 1.2 (0.9-1.3); Prothrombin Time 13.6 SECONDS (10.1-12.7)
[2022-04-27 22:00] LABS: PTT Partial Thromboplastin Tim 32 SECONDS (26-36)
[2022-04-27 22:30] LABS: Adenovirus Not Detected (Not Detect); B. parapertussis Not Detected (Not Detecte); Bordetella pertussis Not Detected (Not Detecte); Chlamydophila pneumoniae Not Detected (Not Detect); Coronavirus 229E Not Detected (Not Detect); Coronavirus HKU1 Not Detected (Not Detect); Coronavirus NL 63 Not Detected (Not Detect); Coronavirus OC43 Not Detected (Not Detect); Human Metapneumovirus Not Detected (Not Detect); Human Rhinovirus/Enterovirus Not Detected (Not Detect); Influenza A Not Detected (Not Detect); Influenza B Not Detected (Not Detect); Mycoplasma pneumoniae Not Detected (Not Detect); Parainfluenza Virus 1 Not Detected (Not Detect); Parainfluenza Virus 2 Not Detected (Not Detect); Parainfluenza Virus 3 Not Detected (Not Detect); Parainfluenza Virus 4 Not Detected (Not Detect); Respiratory Syncytial Virus Not Detected (Not Detect); SARS- CoV-2 Not Detected (Not Detecte)
== END 2022-04-27 23:59 | disposition home or self-care (01) ==
PROVIDERS: Emergency Provider Emergency Medicine; Family Provider Student in an Organized Health Care Education/Training Program; PCP Family Medicine
DX: R50.9 Fever, unspecified (principal); Z20.822 Contact with and (suspected) exposure to COVID-19; C92.00 Acute myeloblastic leukemia, not having achieved remission
CPT/HCPCS: 36415; 71045; 80053; 81003; 83605; 83690; 84145; 85025; 85610; 85730; 87040; 87633; 93005; 96360; 99284

== ENCOUNTER → 2022-07-26 15:33 | Outpatient (CLI) | payer MEDICARE, OTHER, SELFPAY ==
[2021-10-31 12:59] VITALS: BMI 22.2
[2022-07-26 16:36] LABS: Add Manual Diff / Slide Review NO; Basophils Absolute Auto 0 /uL (0-100); Basophils Percent Auto 0.3 % (0-2); Eosinophils Absolute Auto 200 /uL (0-450); Eosinophils Percent Auto 3.6 % (2-4); Hematocrit 37.3 % (41-53); Hemoglobin 12.6 g/dL (13.5-17.5); Lymphocytes Absolute Auto 2400 /uL (1100-4500); Lymphocytes Percent Auto 41.9 % (25-40); Mean Corpuscular HGB Conc 33.7 % (30-36); Mean Corpuscular Hemoglobin 33.3 PG (26-34); Mean Corpuscular Volume 98.8 fL (80-100); Monocytes Absolute Auto 600 /uL (0-900); Monocytes Percent Auto 10.7 % (3-14); Neutrophils Absolute Auto 2500 /uL (1500-7000); Neutrophils Percent Auto 43.5 % (50-75); Platelet Count 96 X10^3/uL (150-400); Red Blood Cell Count 3.78 X10^6/uL (4.5-5.9); Red Cell Distribution Width 17.7 % (11.6-14.8); White Blood Cell Count 5.7 X10^3/uL (4.5-11.0)
[2022-07-26 17:00] LABS: Alanine Aminotransferase 34 IU/L (<50); Albumin 4.1 g/dL (3.5-5.0); Albumin Globulin Ratio 1.5 (1.0-2.8); Alkaline Phosphatase 113 U/L (38-126); Aspartate Aminotransferase 36 IU/L (17-59); BUN Creatinine Ratio 26.5 (6-22); Bilirubin Total 0.5 mg/dL (0.2-1.3); Blood Urea Nitrogen 22 mg/dL (9-20); Calcium 8.8 mg/dL (8.4-10.2); Carbon Dioxide 27 mmol/L (22-32); Chloride 103 mmol/L (98-107); Estimated Glomerular Filt Rate > 60 mL/min (>60); Globulin 2.8 g/dL (1.7-4.1); Glucose 122 mg/dL (80-110); HEMOLYSIS < 15 (0-50); Potassium 3.8 mmol/L (3.4-5.1); Sodium 140 mmol/L (137-145); Total Protein 6.9 g/dL (6.3-8.2)
== END ==
PROVIDERS: Family Provider Student in an Organized Health Care Education/Training Program; PCP Family Medicine; Referring Provider Internal Medicine Hematology; Visit Provider Internal Medicine Hematology
DX: C92.00 Acute myeloblastic leukemia, not having achieved remission (principal)
CPT/HCPCS: 36415; 80053; 85025

== ENCOUNTER → 2022-07-27 15:47 | Outpatient (CLI) | payer MEDICARE, OTHER, SELFPAY ==
[2021-10-31 12:59] VITALS: BMI 22.2
--- NOTE | 2022-07-27 | DI.MRI.S_ITS ---
PROCEDURE: MR SHOULDER LT WO CON INDICATIONS: L SHOULDER PAIN TECHNIQUE: Noncontrast oblique coronal T2 fast spin echo with fat saturation, oblique sagittal T1 spin echo and T2 fast spin echo with fat saturation, axial T1 spin echo and T2 fast spin echo with fat saturation through the shoulder. COMPARISON: [facility] [place], CR, XR SHOULDER 2+ VIEWS LEFT, 07/23/2022, 13:11. FINDINGS: Image quality: Excellent. Rotator cuff: There is high-grade partial-thickness tear at the junction of the supraspinatus and infraspinatus tendons involving the articular and bursal surfaces, as well as footprint. There is partial-thickness tear of the subscapularis tendon involving the superior fibers. Sagittal images demonstrate no rotator cuff muscle atrophy. Bones and bursae: No bone marrow contusions or fractures. Moderate acromioclavicular and glenohumeral joint degeneration. The acromion demonstrates conventional anatomy, without an os acromiale. No pathologic subacromial-subdeltoid or subcoracoid bursal fluid is present. Capsule and soft tissues: Superior labral tear at 11:00-1:00 involving the biceps tendon anchor. There is inferior labral tear at 6:00 with a 0.4 cm paralabral cyst. The long head of the biceps tendon demonstrates normal location and morphology. The rotator interval appears normal, without fibrosis. The coracohumeral ligament is normal in thickness. IMPRESSION: 1. High-grade partial-thickness tear at the junction of the supraspinatus and infraspinatus tendons. 2. Partial-thickness tear of the superior fibers of the subscapularis tendon. 3. Moderate acromioclavicular and glenohumeral joint degeneration. 4. Superior labral tear. 5. Inferior labral tear with a small paralabral cyst. Dictated by: Vaishali Ware M.D. on 07/30/2022 at 9:01 Approved by: Vaishali Ware M.D. on 07/30/2022 at 9:17
== END ==
PROVIDERS: Family Provider Student in an Organized Health Care Education/Training Program; PCP Family Medicine; Referring Provider Orthopaedic Surgery; Visit Provider Orthopaedic Surgery
DX: M75.112 Incomplete rotator cuff tear or rupture of left shoulder, not specified as traumatic (principal); S43.432A Superior glenoid labrum lesion of left shoulder, initial encounter; M19.012 Primary osteoarthritis, left shoulder
CPT/HCPCS: 73221

== ENCOUNTER → 2022-08-18 08:12 | Outpatient (CLI) | payer MEDICARE, OTHER, SELFPAY ==
[2021-10-31 12:59] VITALS: BMI 22.2
[2022-08-18 10:14] LABS: Add Manual Diff / Slide Review NO; Basophils Absolute Auto 0 /uL (0-100); Basophils Percent Auto 0.5 % (0-2); Eosinophils Absolute Auto 0 /uL (0-450); Eosinophils Percent Auto 1.1 % (2-4); Lymphocytes Absolute Auto 1600 /uL (1100-4500); Mean Corpuscular HGB Conc 34.2 % (30-36); Mean Corpuscular Volume 99.5 fL (80-100); Monocytes Absolute Auto 500 /uL (0-900); Monocytes Percent Auto 10.2 % (3-14); Neutrophils Absolute Auto 2300 /uL (1500-7000); Neutrophils Percent Auto 52.2 % (50-75); Platelet Count 109 X10^3/uL (150-400); Red Blood Cell Count 3.82 X10^6/uL (4.5-5.9); Red Cell Distribution Width 15.7 % (11.6-14.8); White Blood Cell Count 4.4 X10^3/uL (4.5-11.0)
[2022-08-18 10:18] LABS: Alanine Aminotransferase 36 IU/L (<50); Albumin 4.2 g/dL (3.5-5.0); Alkaline Phosphatase 83 U/L (38-126); Aspartate Aminotransferase 31 IU/L (17-59); BUN Creatinine Ratio 26.9 (6-22); Bilirubin Total 0.3 mg/dL (0.2-1.3); Blood Urea Nitrogen 25 mg/dL (9-20); Calcium 8.7 mg/dL (8.4-10.2); Carbon Dioxide 27 mmol/L (22-32); Chloride 104 mmol/L (98-107); Estimated Glomerular Filt Rate > 60 mL/min (>60); Globulin 2.1 g/dL (1.7-4.1); Glucose 95 mg/dL (80-110); HEMOLYSIS < 15 (0-50); Potassium 4.1 mmol/L (3.4-5.1); Sodium 139 mmol/L (137-145); Total Protein 6.3 g/dL (6.3-8.2)
== END ==
PROVIDERS: Family Provider Student in an Organized Health Care Education/Training Program; PCP Family Medicine; Referring Provider Internal Medicine Hematology; Visit Provider Internal Medicine Hematology
DX: C92.02 Acute myeloblastic leukemia, in relapse (principal)
CPT/HCPCS: 36415; 80053; 85025

== ENCOUNTER → 2022-08-29 09:01 | Outpatient (CLI) | payer MEDICARE, OTHER, SELFPAY ==
[2021-10-31 12:59] VITALS: BMI 22.2
[2022-08-29 12:22] LABS: Add Manual Diff / Slide Review NO; Basophils Absolute Auto 0 /uL (0-100); Basophils Percent Auto 0.4 % (0-2); Eosinophils Absolute Auto 100 /uL (0-450); Eosinophils Percent Auto 1.4 % (2-4); Hemoglobin 13.6 g/dL (13.5-17.5); Lymphocytes Absolute Auto 2200 /uL (1100-4500); Lymphocytes Percent Auto 42.2 % (25-40); Mean Corpuscular Volume 99.8 fL (80-100); Monocytes Absolute Auto 600 /uL (0-900); Monocytes Percent Auto 10.5 % (3-14); Neutrophils Absolute Auto 2400 /uL (1500-7000); Neutrophils Percent Auto 45.5 % (50-75); Platelet Count 117 X10^3/uL (150-400); Red Blood Cell Count 4.01 X10^6/uL (4.5-5.9); White Blood Cell Count 5.3 X10^3/uL (4.5-11.0)
[2022-08-29 13:02] LABS: Alanine Aminotransferase 41 IU/L (<50); Albumin 4.2 g/dL (3.5-5.0); Albumin Globulin Ratio 1.7 (1.0-2.8); Alkaline Phosphatase 80 U/L (38-126); Aspartate Aminotransferase 34 IU/L (17-59); BUN Creatinine Ratio 25.5 (6-22); Bilirubin Total 0.4 mg/dL (0.2-1.3); Blood Urea Nitrogen 25 mg/dL (9-20); Carbon Dioxide 28 mmol/L (22-32); Chloride 101 mmol/L (98-107); Estimated Glomerular Filt Rate > 60 mL/min (>60); Globulin 2.5 g/dL (1.7-4.1); Glucose 88 mg/dL (80-110); HEMOLYSIS < 15 (0-50); Potassium 4.5 mmol/L (3.4-5.1); Sodium 138 mmol/L (137-145); Total Protein 6.7 g/dL (6.3-8.2)
== END ==
PROVIDERS: Family Provider Student in an Organized Health Care Education/Training Program; PCP Family Medicine; Referring Provider Internal Medicine Hematology; Visit Provider Internal Medicine Hematology
DX: C92.01 Acute myeloblastic leukemia, in remission (principal)
CPT/HCPCS: 36415; 80053; 85025

== ENCOUNTER → 2022-09-28 08:26 | Outpatient (CLI) | payer MEDICARE, OTHER, SELFPAY ==
[2021-10-31 12:59] VITALS: BMI 22.2
[2022-09-28 09:02] LABS: Add Manual Diff / Slide Review NO; Basophils Absolute Auto 0 /uL (0-100); Basophils Percent Auto 0.4 % (0-2); Eosinophils Absolute Auto 100 /uL (0-450); Hematocrit 41.1 % (41-53); Hemoglobin 14.1 g/dL (13.5-17.5); Lymphocytes Absolute Auto 2700 /uL (1100-4500); Mean Corpuscular HGB Conc 34.3 % (30-36); Mean Corpuscular Hemoglobin 33.8 PG (26-34); Mean Corpuscular Volume 98.7 fL (80-100); Monocytes Absolute Auto 700 /uL (0-900); Monocytes Percent Auto 9.8 % (3-14); Neutrophils Absolute Auto 3800 /uL (1500-7000); Neutrophils Percent Auto 50.8 % (50-75); Platelet Count 157 X10^3/uL (150-400); Red Blood Cell Count 4.17 X10^6/uL (4.5-5.9); Red Cell Distribution Width 13.2 % (11.6-14.8); White Blood Cell Count 7.4 X10^3/uL (4.5-11.0)
== END ==
PROVIDERS: Family Provider Student in an Organized Health Care Education/Training Program; PCP Family Medicine; Referring Provider Internal Medicine Hematology; Visit Provider Internal Medicine Hematology
DX: C92.01 Acute myeloblastic leukemia, in remission (principal)
CPT/HCPCS: 36415; 85025

== ENCOUNTER → 2022-11-05 08:29 | Outpatient (CLI) | payer MEDICARE, OTHER, SELFPAY ==
[2021-10-31 12:59] VITALS: BMI 22.2
[2022-11-05 09:26] LABS: Add Manual Diff / Slide Review NO; Basophils Absolute Auto 0 /uL (0-100); Basophils Percent Auto 0.4 % (0-2); Eosinophils Absolute Auto 200 /uL (0-450); Eosinophils Percent Auto 3.5 % (2-4); Hematocrit 41.2 % (41-53); Lymphocytes Absolute Auto 2000 /uL (1100-4500); Lymphocytes Percent Auto 28.1 % (25-40); Mean Corpuscular HGB Conc 33.9 % (30-36); Mean Corpuscular Hemoglobin 32.9 PG (26-34); Mean Corpuscular Volume 96.9 fL (80-100); Monocytes Absolute Auto 700 /uL (0-900); Monocytes Percent Auto 9.7 % (3-14); Neutrophils Absolute Auto 4100 /uL (1500-7000); Neutrophils Percent Auto 58.3 % (50-75); Platelet Count 157 X10^3/uL (150-400); Red Blood Cell Count 4.25 X10^6/uL (4.5-5.9); Red Cell Distribution Width 12.7 % (11.6-14.8); White Blood Cell Count 7.1 X10^3/uL (4.5-11.0)
[2022-11-05 09:56] LABS: Alanine Aminotransferase 34 IU/L (<50); Albumin 4.4 g/dL (3.5-5.0); Albumin Globulin Ratio 1.8 (1.0-2.8); Alkaline Phosphatase 85 U/L (38-126); Aspartate Aminotransferase 34 IU/L (17-59); BUN Creatinine Ratio 21.2 (6-22); Bilirubin Total 0.5 mg/dL (0.2-1.3); Blood Urea Nitrogen 22 mg/dL (9-20); Calcium 9.2 mg/dL (8.4-10.2); Carbon Dioxide 28 mmol/L (22-32); Chloride 103 mmol/L (98-107); Estimated Glomerular Filt Rate > 60 mL/min (>60); Globulin 2.4 g/dL (1.7-4.1); Glucose 95 mg/dL (80-110); HEMOLYSIS < 15 (0-50); Potassium 4.2 mmol/L (3.4-5.1); Sodium 137 mmol/L (137-145); Total Protein 6.8 g/dL (6.3-8.2)
== END ==
PROVIDERS: Absent Provider Family Medicine; Family Provider Family Medicine; PCP Family Medicine; Referring Provider Registered Nurse; Visit Provider Registered Nurse
DX: E11.9 Type 2 diabetes mellitus without complications (principal); C92.00 Acute myeloblastic leukemia, not having achieved remission
CPT/HCPCS: 36415; 80053; 85025

== ENCOUNTER → 2023-02-04 08:04 | Outpatient (CLI) | payer MEDICARE, OTHER, SELFPAY ==
[2021-10-31 12:59] VITALS: BMI 22.2
[2023-02-04 09:53] LABS: Add Manual Diff / Slide Review NO; Basophils Absolute Auto 0 /uL (0-100); Basophils Percent Auto 0.5 % (0-2); Eosinophils Absolute Auto 200 /uL (0-450); Eosinophils Percent Auto 3.6 % (2-4); Hematocrit 40.6 % (41-53); Hemoglobin 13.6 g/dL (13.5-17.5); Lymphocytes Absolute Auto 2200 /uL (1100-4500); Lymphocytes Percent Auto 35.3 % (25-40); Mean Corpuscular HGB Conc 33.5 % (30-36); Mean Corpuscular Hemoglobin 33.4 PG (26-34); Mean Corpuscular Volume 99.6 fL (80-100); Monocytes Absolute Auto 600 /uL (0-900); Monocytes Percent Auto 9.5 % (3-14); Neutrophils Absolute Auto 3200 /uL (1500-7000); Neutrophils Percent Auto 51.1 % (50-75); Platelet Count 161 X10^3/uL (150-400); Red Blood Cell Count 4.08 X10^6/uL (4.5-5.9); Red Cell Distribution Width 14.1 % (11.6-14.8); White Blood Cell Count 6.4 X10^3/uL (4.5-11.0)
[2023-02-04 10:26] LABS: Alanine Aminotransferase 29 IU/L (<50); Albumin 4.2 g/dL (3.5-5.0); Albumin Globulin Ratio 1.9 (1.0-2.8); Alkaline Phosphatase 90 U/L (38-126); Aspartate Aminotransferase 32 IU/L (17-59); BUN Creatinine Ratio 26.4 (6-22); Bilirubin Total 0.4 mg/dL (0.2-1.3); Blood Urea Nitrogen 24 mg/dL (9-20); Calcium 8.8 mg/dL (8.4-10.2); Carbon Dioxide 27 mmol/L (22-32); Chloride 103 mmol/L (98-107); Estimated Glomerular Filt Rate > 60 mL/min (>60); Globulin 2.2 g/dL (1.7-4.1); Glucose 91 mg/dL (80-110); HEMOLYSIS < 15 (0-50); Potassium 4.3 mmol/L (3.4-5.1); Sodium 137 mmol/L (137-145); Total Protein 6.4 g/dL (6.3-8.2)
== END ==
PROVIDERS: Family Provider Family Medicine; PCP Family Medicine; Referring Provider Internal Medicine Hematology; Visit Provider Internal Medicine Hematology
DX: C92.01 Acute myeloblastic leukemia, in remission (principal)
CPT/HCPCS: 36415; 80053; 85025

== ENCOUNTER → 2023-04-08 08:09 | Outpatient (CLI) | payer MEDICARE, OTHER, SELFPAY ==
[2021-10-31 12:59] VITALS: BMI 22.2
[2023-04-08 08:54] LABS: Add Manual Diff / Slide Review NO; Basophils Absolute Auto 0 /uL (0-100); Basophils Percent Auto 0.3 % (0-2); Eosinophils Absolute Auto 100 /uL (0-450); Eosinophils Percent Auto 2.1 % (2-4); Hematocrit 38.1 % (41-53); Lymphocytes Absolute Auto 2300 /uL (1100-4500); Lymphocytes Percent Auto 48.2 % (25-40); Mean Corpuscular HGB Conc 34.1 % (30-36); Mean Corpuscular Hemoglobin 33.4 PG (26-34); Monocytes Absolute Auto 200 /uL (0-900); Monocytes Percent Auto 4.7 % (3-14); Neutrophils Absolute Auto 2100 /uL (1500-7000); Neutrophils Percent Auto 44.7 % (50-75); Platelet Count 76 X10^3/uL (150-400); Red Blood Cell Count 3.89 X10^6/uL (4.5-5.9); White Blood Cell Count 4.7 X10^3/uL (4.5-11.0)
[2023-04-08 09:03] LABS: Alanine Aminotransferase 26 IU/L (<50); Albumin 4.3 g/dL (3.5-5.0); Albumin Globulin Ratio 1.7 (1.0-2.8); Alkaline Phosphatase 67 U/L (38-126); Aspartate Aminotransferase 29 IU/L (17-59); BUN Creatinine Ratio 33.3 (6-22); Bilirubin Total 0.6 mg/dL (0.2-1.3); Blood Urea Nitrogen 29 mg/dL (9-20); Calcium 9.4 mg/dL (8.4-10.2); Carbon Dioxide 26 mmol/L (22-32); Chloride 103 mmol/L (98-107); Estimated Glomerular Filt Rate > 60 mL/min (>60); Globulin 2.6 g/dL (1.7-4.1); Glucose 99 mg/dL (80-110); HEMOLYSIS < 15 (0-50); Potassium 3.9 mmol/L (3.4-5.1); Sodium 138 mmol/L (137-145); Total Protein 6.9 g/dL (6.3-8.2)
== END ==
PROVIDERS: Family Provider Family Medicine; PCP Family Medicine; Referring Provider Internal Medicine Hematology; Visit Provider Internal Medicine Hematology
DX: C92.01 Acute myeloblastic leukemia, in remission (principal)
CPT/HCPCS: 36415; 80053; 85025

== ENCOUNTER → 2023-04-12 07:23 | Outpatient (CLI) | payer MEDICARE, OTHER, SELFPAY ==
[2021-10-31 12:59] VITALS: BMI 22.2
[2023-04-12 07:46] LABS: Add Manual Diff / Slide Review NO; Basophils Absolute Auto 0 /uL (0-100); Basophils Percent Auto 0.3 % (0-2); Eosinophils Absolute Auto 100 /uL (0-450); Hematocrit 38.1 % (41-53); Hemoglobin 12.9 g/dL (13.5-17.5); Lymphocytes Absolute Auto 2900 /uL (1100-4500); Lymphocytes Percent Auto 56.4 % (25-40); Mean Corpuscular HGB Conc 33.7 % (30-36); Mean Corpuscular Hemoglobin 33.3 PG (26-34); Mean Corpuscular Volume 98.8 fL (80-100); Monocytes Absolute Auto 200 /uL (0-900); Monocytes Percent Auto 4.1 % (3-14); Neutrophils Absolute Auto 1900 /uL (1500-7000); Neutrophils Percent Auto 37.2 % (50-75); Platelet Count 67 X10^3/uL (150-400); Red Blood Cell Count 3.86 X10^6/uL (4.5-5.9); Red Cell Distribution Width 14.1 % (11.6-14.8); White Blood Cell Count 5.2 X10^3/uL (4.5-11.0)
[2023-04-12 08:11] LABS: Alanine Aminotransferase 28 IU/L (<50); Albumin 4.3 g/dL (3.5-5.0); Albumin Globulin Ratio 1.5 (1.0-2.8); Alkaline Phosphatase 73 U/L (38-126); Aspartate Aminotransferase 31 IU/L (17-59); BUN Creatinine Ratio 36.5 (6-22); Bilirubin Total 0.5 mg/dL (0.2-1.3); Blood Urea Nitrogen 31 mg/dL (9-20); Calcium 9.2 mg/dL (8.4-10.2); Carbon Dioxide 25 mmol/L (22-32); Chloride 104 mmol/L (98-107); Estimated Glomerular Filt Rate > 60 mL/min (>60); Globulin 2.9 g/dL (1.7-4.1); Glucose 98 mg/dL (80-110); HEMOLYSIS < 15 (0-50); Potassium 3.7 mmol/L (3.4-5.1); Sodium 139 mmol/L (137-145); Total Protein 7.2 g/dL (6.3-8.2)
== END ==
PROVIDERS: Family Provider Family Medicine; PCP Family Medicine; Referring Provider Internal Medicine Hematology; Visit Provider Internal Medicine Hematology
DX: C92.11 Chronic myeloid leukemia, BCR/ABL-positive, in remission (principal)
CPT/HCPCS: 36415; 80053; 85025

== ENCOUNTER → 2023-04-19 08:48 | Outpatient (CLI) | payer MEDICARE, OTHER, SELFPAY ==
[2021-10-31 12:59] VITALS: BMI 22.2
[2023-04-19 10:23] LABS: Add Manual Diff / Slide Review NO; Basophils Absolute Auto 0 /uL (0-100); Basophils Percent Auto 0.3 % (0-2); Eosinophils Absolute Auto 100 /uL (0-450); Eosinophils Percent Auto 1.5 % (2-4); Hematocrit 37.4 % (41-53); Hemoglobin 12.9 g/dL (13.5-17.5); Lymphocytes Absolute Auto 1700 /uL (1100-4500); Lymphocytes Percent Auto 51.4 % (25-40); Mean Corpuscular HGB Conc 34.3 % (30-36); Mean Corpuscular Hemoglobin 34.3 PG (26-34); Mean Corpuscular Volume 99.8 fL (80-100); Monocytes Absolute Auto 200 /uL (0-900); Monocytes Percent Auto 4.6 % (3-14); Neutrophils Absolute Auto 1400 /uL (1500-7000); Neutrophils Percent Auto 42.2 % (50-75); Platelet Count 63 X10^3/uL (150-400); Red Blood Cell Count 3.75 X10^6/uL (4.5-5.9); Red Cell Distribution Width 14.8 % (11.6-14.8); White Blood Cell Count 3.4 X10^3/uL (4.5-11.0)
[2023-04-19 10:56] LABS: Alanine Aminotransferase 29 IU/L (<50); Albumin 4.4 g/dL (3.5-5.0); Albumin Globulin Ratio 1.9 (1.0-2.8); Alkaline Phosphatase 74 U/L (38-126); Aspartate Aminotransferase 31 IU/L (17-59); BUN Creatinine Ratio 32.6 (6-22); Bilirubin Total 0.5 mg/dL (0.2-1.3); Bilirubin Unconjugated 0.6 mg/dL (0.0-1.1); Blood Urea Nitrogen 29 mg/dL (9-20); Calcium 9.4 mg/dL (8.4-10.2); Carbon Dioxide 26 mmol/L (22-32); Chloride 103 mmol/L (98-107); Estimated Glomerular Filt Rate > 60 mL/min (>60); Globulin 2.3 g/dL (1.7-4.1); Glucose 96 mg/dL (80-110); HEMOLYSIS < 15 (0-50); Magnesium 2.2 mg/dL (1.6-2.3); Phosphorous 3.4 mg/dL (2.3-3.7); Potassium 4.4 mmol/L (3.4-5.1); Sodium 137 mmol/L (137-145); Total Protein 6.7 g/dL (6.3-8.2)
== END ==
PROVIDERS: Family Provider Family Medicine; PCP Family Medicine; Referring Provider Nurse Practitioner Adult Health; Visit Provider Nurse Practitioner Adult Health
DX: C92.01 Acute myeloblastic leukemia, in remission (principal)
CPT/HCPCS: 36415; 80069; 80076; 83735; 85025

== ENCOUNTER → 2023-04-26 07:11 | Outpatient (CLI) | payer MEDICARE, OTHER, SELFPAY ==
[2021-10-31 12:59] VITALS: BMI 22.2
[2023-04-26 08:43] LABS: Add Manual Diff / Slide Review NO; Basophils Absolute Auto 0 /uL (0-100); Basophils Percent Auto 0.2 % (0-2); Eosinophils Absolute Auto 100 /uL (0-450); Eosinophils Percent Auto 2.4 % (2-4); Hematocrit 37.3 % (41-53); Hemoglobin 12.6 g/dL (13.5-17.5); Lymphocytes Absolute Auto 2300 /uL (1100-4500); Lymphocytes Percent Auto 62.7 % (25-40); Mean Corpuscular HGB Conc 33.7 % (30-36); Mean Corpuscular Hemoglobin 33.6 PG (26-34); Mean Corpuscular Volume 99.7 fL (80-100); Monocytes Absolute Auto 100 /uL (0-900); Monocytes Percent Auto 3.4 % (3-14); Neutrophils Absolute Auto 1200 /uL (1500-7000); Neutrophils Percent Auto 31.3 % (50-75); Platelet Count 54 X10^3/uL (150-400); Red Blood Cell Count 3.74 X10^6/uL (4.5-5.9); White Blood Cell Count 3.7 X10^3/uL (4.5-11.0)
[2023-04-26 08:53] LABS: Albumin 4.4 g/dL (3.5-5.0); BUN Creatinine Ratio 31.2 (6-22); Blood Urea Nitrogen 29 mg/dL (9-20); Calcium 9.3 mg/dL (8.4-10.2); Carbon Dioxide 26 mmol/L (22-32); Chloride 103 mmol/L (98-107); Estimated Glomerular Filt Rate > 60 mL/min (>60); Glucose 96 mg/dL (80-110); HEMOLYSIS < 15 (0-50); Phosphorous 3.4 mg/dL (2.3-3.7); Potassium 4.3 mmol/L (3.4-5.1); Sodium 138 mmol/L (137-145)
== END ==
PROVIDERS: Family Provider Family Medicine; PCP Family Medicine; Referring Provider Nurse Practitioner Adult Health; Visit Provider Nurse Practitioner Adult Health
DX: C92.01 Acute myeloblastic leukemia, in remission (principal)
CPT/HCPCS: 36415; 80069; 85025

== ENCOUNTER → 2023-11-12 14:38 | Outpatient (CLI) | payer MEDICARE, OTHER, SELFPAY ==
[2021-10-31 12:59] VITALS: BMI 22.2
[2023-11-12 15:36] LABS: Add Manual Diff / Slide Review NO; Basophils Absolute Auto 0 /uL (0-100); Basophils Percent Auto 0.4 % (0-2); Eosinophils Absolute Auto 0 /uL (0-450); Eosinophils Percent Auto 0.6 % (2-4); Hemoglobin 10.6 g/dL (13.5-17.5); Lymphocytes Absolute Auto 1600 /uL (1100-4500); Lymphocytes Percent Auto 34.7 % (25-40); Mean Corpuscular Hemoglobin 34.3 PG (26-34); Monocytes Absolute Auto 700 /uL (0-900); Monocytes Percent Auto 16.2 % (3-14); Neutrophils Absolute Auto 2200 /uL (1500-7000); Neutrophils Percent Auto 48.1 % (50-75); Platelet Count 97 X10^3/uL (150-400); Red Blood Cell Count 3.07 X10^6/uL (4.5-5.9); White Blood Cell Count 4.5 X10^3/uL (4.5-11.0)
[2023-11-12 16:03] LABS: Albumin 4.3 g/dL (3.5-5.0); BUN Creatinine Ratio 31.5 (6-22); Blood Urea Nitrogen 29 mg/dL (9-20); Calcium 9.1 mg/dL (8.4-10.2); Carbon Dioxide 28 mmol/L (22-32); Chloride 105 mmol/L (98-107); Estimated Glomerular Filt Rate > 60 mL/min (>60); Glucose 109 mg/dL (80-110); HEMOLYSIS < 15 (0-50); Phosphorous 3.8 mg/dL (2.3-3.7); Potassium 3.8 mmol/L (3.4-5.1); Sodium 139 mmol/L (137-145)
[2023-11-12 19:19] LABS: Anisocytosis 3+; RBC Morphology See
[2023-11-12 19:20] LABS: Platelet Estimate Decreased on smear
== END ==
PROVIDERS: Family Provider Family Medicine; PCP Family Medicine; Referring Provider Nurse Practitioner Adult Health; Visit Provider Nurse Practitioner Adult Health
DX: C92.01 Acute myeloblastic leukemia, in remission (principal)
CPT/HCPCS: 36415; 80069; 85025

== ENCOUNTER → 2024-01-06 10:29 | Outpatient (CLI) | payer MEDICARE, OTHER, SELFPAY ==
[2021-10-31 12:59] VITALS: BMI 22.2
--- NOTE | 2024-01-06 10:31 | DI.RAD.S_ITS ---
PROCEDURE: XR DEXA AXIAL SKELETON INDICATIONS: ACUTE MYELOID LEUKEMIA IN RELAPSE COMPARISON: None. FINDINGS: Lumbar Spine: Bone mineral density 1.177 g/cm2, T score 1.4. Left Hip: Bone mineral density is 0.924 g/cm2, T score -0.1. Left Femoral Neck: Bone mineral density 0.697 g/cm2, T score -1.4. Right Hip: Bone mineral density 1.004 g/cm2, T score 0.5. Right Femoral Neck: Bone mineral density 0.727 g/cm2, T score -1.1. Fracture Risk Calculation (when applicable): Not calculated. (T score greater or equal to -1.0 to: NORMAL) (T score from -1.1 to -2.4: OSTEOPENIA) (T score less than or equal to -2.5: OSTEOPOROSIS) IMPRESSION: Osteopenia. Follow-up guidelines as follows: Osteoporosis: Consider a repeat DEXA and Vertebral Fracture Assessment (VFA) exam in 2 years or sooner if medically necessary, to reassess this patient's status. Osteopenia: Consider a repeat DEXA in 2-3 years to reassess this patient's status, or if there is a new clinical indication. Normal: Consider a repeat DEXA in 5 years or sooner, or if there is a new clinical indication. All treatment decisions require clinical judgment and consideration of individual patient factors, including patient preferences, comorbidities, previous drug use, risk factors not captured in the FRAX model (e.g., frailty, falls, vitamin D deficiency, increased bone turnover, interval significant decline in bone density ) and possible under- or over-estimation of fracture risk by FRAX. In addition, the NOF Guide recommends that FDA-approved medical therapies be considered in postmenopausal women and men age >= 50 years with a: * Hip or vertebral (clinical or morphometric) fracture * T-score of <=-2.5 at the spine or hip * Ten-year fracture probability by FRAX of >= 3% for hip fracture or >=20% for major osteoporotic fracture. People with diagnosed cases of osteoporosis or at high risk for fracture should have regular bone mineral density tests. For patients eligible for Medicare, routine testing is allowed once every 2 years. The testing frequency can be increased to one year for patients who have rapidly progressing disease, those who are receiving or discontinuing medical therapy to restore bone mass, or have additional risk factors. Dictated by: Mika Hood M.D. on 01/06/2024 at 12:38 Approved by: Mika Hood M.D. on 01/06/2024 at 12:39
== END ==
PROVIDERS: Family Provider Family Medicine; PCP Registered Nurse; Referring Provider Registered Nurse; Visit Provider Registered Nurse
DX: M85.89 Other specified disorders of bone density and structure, multiple sites (principal); C92.02 Acute myeloblastic leukemia, in relapse; Z79.52 Long term (current) use of systemic steroids
CPT/HCPCS: 77080

== ENCOUNTER → 2024-02-05 10:47 | Outpatient (CLI) | payer MEDICARE, OTHER, SELFPAY ==
[2021-10-31 12:59] VITALS: BMI 22.2
[2024-02-05 12:18] LABS: Add Manual Diff / Slide Review NO; Basophils Absolute Auto 0 /uL (0-100); Basophils Percent Auto 0.5 % (0-2); Eosinophils Absolute Auto 100 /uL (0-450); Eosinophils Percent Auto 2.4 % (2-4); Hematocrit 36.5 % (41-53); Hemoglobin 12.2 g/dL (13.5-17.5); Lymphocytes Absolute Auto 1500 /uL (1100-4500); Lymphocytes Percent Auto 32.5 % (25-40); Mean Corpuscular HGB Conc 33.5 % (30-36); Mean Corpuscular Hemoglobin 35.2 PG (26-34); Monocytes Absolute Auto 500 /uL (0-900); Monocytes Percent Auto 10.7 % (3-14); Neutrophils Absolute Auto 2500 /uL (1500-7000); Neutrophils Percent Auto 53.9 % (50-75); Platelet Count 90 X10^3/uL (150-400); Red Blood Cell Count 3.47 X10^6/uL (4.5-5.9); Red Cell Distribution Width 14.8 % (11.6-14.8); White Blood Cell Count 4.7 X10^3/uL (4.5-11.0)
[2024-02-05 12:54] LABS: BUN Creatinine Ratio 27.3 (6-22); Blood Urea Nitrogen 24 mg/dL (9-20); Calcium 9.2 mg/dL (8.4-10.2); Carbon Dioxide 26 mmol/L (22-32); Estimated Glomerular Filt Rate > 60 mL/min (>60); Glucose 96 mg/dL (80-110); HEMOLYSIS < 15 (0-50)
[2024-02-05 13:55] LABS: Chloride 104 mmol/L (98-107); Potassium 4.3 mmol/L (3.4-5.1); Sodium 138 mmol/L (137-145)
== END ==
PROVIDERS: Family Provider Family Medicine; PCP Registered Nurse; Referring Provider Internal Medicine Hematology; Visit Provider Internal Medicine Hematology
DX: C92.01 Acute myeloblastic leukemia, in remission (principal)
CPT/HCPCS: 36415; 80048; 85025

== ENCOUNTER → 2024-02-19 07:54 | Outpatient (CLI) | payer MEDICARE, OTHER, SELFPAY ==
[2021-10-31 12:59] VITALS: BMI 22.2
[2024-02-19 08:48] LABS: Add Manual Diff / Slide Review NO; Basophils Absolute Auto 0 /uL (0-100); Basophils Percent Auto 0.3 % (0-2); Eosinophils Absolute Auto 200 /uL (0-450); Hematocrit 39.2 % (41-53); Hemoglobin 13.1 g/dL (13.5-17.5); Lymphocytes Absolute Auto 1800 /uL (1100-4500); Lymphocytes Percent Auto 34.5 % (25-40); Mean Corpuscular HGB Conc 33.3 % (30-36); Mean Corpuscular Hemoglobin 34.5 PG (26-34); Mean Corpuscular Volume 103.5 fL (80-100); Monocytes Absolute Auto 600 /uL (0-900); Monocytes Percent Auto 10.8 % (3-14); Neutrophils Absolute Auto 2700 /uL (1500-7000); Neutrophils Percent Auto 51.4 % (50-75); Platelet Count 89 X10^3/uL (150-400); Red Blood Cell Count 3.78 X10^6/uL (4.5-5.9); White Blood Cell Count 5.2 X10^3/uL (4.5-11.0)
[2024-02-19 09:14] LABS: Blood Urea Nitrogen 27 mg/dL (9-20); Carbon Dioxide 25 mmol/L (22-32); Chloride 102 mmol/L (98-107); Estimated Glomerular Filt Rate > 60 mL/min (>60); Glucose 90 mg/dL (80-110); HEMOLYSIS < 15 (0-50); Potassium 4.2 mmol/L (3.4-5.1); Sodium 135 mmol/L (137-145)
== END ==
PROVIDERS: Family Provider Family Medicine; PCP Registered Nurse; Referring Provider Internal Medicine Hematology; Visit Provider Internal Medicine Hematology
DX: C92.01 Acute myeloblastic leukemia, in remission (principal)
CPT/HCPCS: 36415; 80048; 85025

== ENCOUNTER → 2024-03-04 07:03 | Outpatient (CLI) | payer MEDICARE, OTHER, SELFPAY ==
[2021-10-31 12:59] VITALS: BMI 22.2
[2024-03-04 07:52] LABS: Add Manual Diff / Slide Review NO; Basophils Absolute Auto 0 /uL (0-100); Basophils Percent Auto 0.4 % (0-2); Eosinophils Absolute Auto 100 /uL (0-450); Eosinophils Percent Auto 1.6 % (2-4); Hematocrit 38.5 % (41-53); Hemoglobin 13.1 g/dL (13.5-17.5); Lymphocytes Absolute Auto 1200 /uL (1100-4500); Lymphocytes Percent Auto 18.9 % (25-40); Mean Corpuscular Hemoglobin 34.9 PG (26-34); Mean Corpuscular Volume 102.7 fL (80-100); Monocytes Absolute Auto 500 /uL (0-900); Monocytes Percent Auto 7.5 % (3-14); Neutrophils Absolute Auto 4500 /uL (1500-7000); Neutrophils Percent Auto 71.6 % (50-75); Platelet Count 76 X10^3/uL (150-400); Red Blood Cell Count 3.74 X10^6/uL (4.5-5.9); Red Cell Distribution Width 14.2 % (11.6-14.8); White Blood Cell Count 6.3 X10^3/uL (4.5-11.0)
[2024-03-04 08:24] LABS: BUN Creatinine Ratio 28.7 (6-22); Blood Urea Nitrogen 27 mg/dL (9-20); Carbon Dioxide 25 mmol/L (22-32); Chloride 105 mmol/L (98-107); Estimated Glomerular Filt Rate > 60 mL/min (>60); Glucose 102 mg/dL (80-110); HEMOLYSIS < 15 (0-50); Potassium 4.2 mmol/L (3.4-5.1); Sodium 137 mmol/L (137-145)
== END ==
PROVIDERS: Family Provider Family Medicine; PCP Registered Nurse; Referring Provider Internal Medicine Hematology; Visit Provider Internal Medicine Hematology
DX: C92.01 Acute myeloblastic leukemia, in remission (principal)
CPT/HCPCS: 36415; 80048; 85025

== ENCOUNTER → 2024-03-09 08:13 | Outpatient (CLI) | payer MEDICARE, OTHER, SELFPAY ==
[2021-10-31 12:59] VITALS: BMI 22.2
[2024-03-09 09:13] LABS: Add Manual Diff / Slide Review NO; Basophils Absolute Auto 0 /uL (0-100); Basophils Percent Auto 0.3 % (0-2); Eosinophils Absolute Auto 100 /uL (0-450); Eosinophils Percent Auto 3.6 % (2-4); Hematocrit 37.8 % (41-53); Hemoglobin 12.9 g/dL (13.5-17.5); Lymphocytes Absolute Auto 1700 /uL (1100-4500); Lymphocytes Percent Auto 40.4 % (25-40); Mean Corpuscular HGB Conc 34.2 % (30-36); Mean Corpuscular Hemoglobin 35.1 PG (26-34); Mean Corpuscular Volume 102.7 fL (80-100); Monocytes Absolute Auto 300 /uL (0-900); Monocytes Percent Auto 6.2 % (3-14); Neutrophils Absolute Auto 2000 /uL (1500-7000); Neutrophils Percent Auto 49.5 % (50-75); Platelet Count 65 X10^3/uL (150-400); Red Blood Cell Count 3.68 X10^6/uL (4.5-5.9); Red Cell Distribution Width 13.9 % (11.6-14.8); White Blood Cell Count 4.1 X10^3/uL (4.5-11.0)
[2024-03-09 09:45] LABS: BUN Creatinine Ratio 28.7 (6-22); Blood Urea Nitrogen 25 mg/dL (9-20); Calcium 9.2 mg/dL (8.4-10.2); Carbon Dioxide 26 mmol/L (22-32); Chloride 105 mmol/L (98-107); Estimated Glomerular Filt Rate > 60 mL/min (>60); Glucose 100 mg/dL (80-110); HEMOLYSIS < 15 (0-50); Potassium 4.3 mmol/L (3.4-5.1); Sodium 139 mmol/L (137-145)
[2024-03-10 10:09] LABS: Cholesterol 139 mg/dL (140-199); HDL Cholesterol 69 mg/dL (40-60); LDL Cholesterol Calculated 52 mg/dL (<100); Triglycerides 91 mg/dL (35-150)
[2024-03-10 10:17] LABS: Hemoglobin A1C% w Est Avg Glu 5.9 % (4.0-6.0)
== END ==
PROVIDERS: Family Provider Family Medicine; PCP Registered Nurse
DX: C92.01 Acute myeloblastic leukemia, in remission (principal); E11.9 Type 2 diabetes mellitus without complications
CPT/HCPCS: 36415; 80048; 80061; 83036; 85025

== ENCOUNTER → 2024-04-27 08:06 | Outpatient (CLI) | payer MEDICARE, OTHER, SELFPAY ==
[2021-10-31 12:59] VITALS: BMI 22.2
[2024-04-27 08:57] LABS: Add Manual Diff / Slide Review NO; Basophils Absolute Auto 0 /uL (0-100); Basophils Percent Auto 0.2 % (0-2); Eosinophils Absolute Auto 100 /uL (0-450); Eosinophils Percent Auto 3.2 % (2-4); Hematocrit 32.9 % (41-53); Hemoglobin 11.4 g/dL (13.5-17.5); Lymphocytes Absolute Auto 1300 /uL (1100-4500); Lymphocytes Percent Auto 71.5 % (25-40); Mean Corpuscular HGB Conc 34.6 % (30-36); Mean Corpuscular Hemoglobin 35.3 PG (26-34); Mean Corpuscular Volume 101.7 fL (80-100); Monocytes Absolute Auto 100 /uL (0-900); Neutrophils Absolute Auto 400 /uL (1500-7000); Neutrophils Percent Auto 22.1 % (50-75); Red Blood Cell Count 3.23 X10^6/uL (4.5-5.9); Red Cell Distribution Width 14.2 % (11.6-14.8)
[2024-04-27 09:06] LABS: Platelet Count 18 X10^3/uL (150-400); White Blood Cell Count 1.9 X10^3/uL (4.5-11.0)
[2024-04-27 09:31] LABS: Blood Urea Nitrogen 29 mg/dL (9-20); Calcium 9.1 mg/dL (8.4-10.2); Carbon Dioxide 27 mmol/L (22-32); Chloride 104 mmol/L (98-107); Estimated Glomerular Filt Rate > 60 mL/min (>60); Glucose 111 mg/dL (80-110); HEMOLYSIS < 15 (0-50); Potassium 4.3 mmol/L (3.4-5.1); Sodium 137 mmol/L (137-145)
[2024-04-27 12:19] LABS: Platelet Estimate Decreased on smear
[2024-04-27 12:20] LABS: Macrocytosis 1+
== END ==
PROVIDERS: Family Provider Family Medicine; PCP Registered Nurse; Referring Provider Obstetrics & Gynecology; Visit Provider Obstetrics & Gynecology
DX: C92.01 Acute myeloblastic leukemia, in remission (principal)
CPT/HCPCS: 36415; 80048; 85025